=== PATIENT | female | born 1965 | race Caucasian/White ===

== ENCOUNTER 2019-12-31 09:00 | Outpatient (CLI) | payer OTHER, SELFPAY ==
[2019-12-31 09:36] LABS: Hemoglobin A1C 5.2 % (<5.7)
[2019-12-31 09:45] LABS: Alanine Aminotransferase 29 U/L (4-35); Albumin Level 4.2 g/dL (3.5-5.1); Alkaline Phosphatase 115 U/L (38-126); Aspartate Amino Transferase 44 U/L (14-36); Bilirubin,Total 0.4 mg/dL (0.2-1.3); Blood Urea Nitrogen 14 mg/dL (7-17); Calcium 9.1 mg/dL (8.4-10.2); Carbon Dioxide 26 mmol/L (22-30); Chloride 109 mmol/L (98-107); Cholesterol 182 mg/dL (0-200); Estimated Glomerular Filt Rate > 60; Glucose 101 mg/dL (65-105); HDL Direct 55 mg/dL; Potassium 4.3 mmol/L (3.4-5.0); Sodium 141 mmol/L (137-145); Triglycerides 84 mg/dL (<150)
[2019-12-31 09:56] LABS: LDL Cholesterol Direct 99 mg/dL
== END 2019-12-31 09:01 | disposition home or self-care (01) ==
PROVIDERS: PCP Family Medicine; Visit Provider Family Medicine
DX: E78.5 Hyperlipidemia, unspecified (principal); E88.81 Metabolic syndrome and other insulin resistance; Z79.899 Other long term (current) drug therapy
CPT/HCPCS: 36415; 80053; 80061; 83036

== ENCOUNTER 2020-01-08 00:21 | Outpatient (CLI) | payer OTHER, SELFPAY ==
[2020-01-08 17:33] LABS: SARS-CoV-2 RNA PCR Negative
== END 2020-01-08 00:22 | disposition home or self-care (01) ==
LOC: ANHCOVIDDT 00:21
PROVIDERS: Anesthesiology; PCP Family Medicine; Visit Provider Orthopaedic Surgery
DX: Z01.812 Encounter for preprocedural laboratory examination (principal); Z20.828 Contact with and (suspected) exposure to other viral communicable diseases
CPT/HCPCS: 87635; C9803; U0003

== ENCOUNTER 2020-01-08 10:15 | Outpatient (CLI) | payer OTHER, SELFPAY ==
--- NOTE | 2020-01-08 10:17 | ECG_ITS ---
Measurements Intervals [place] Rate: 68 P: 10 NC: 129 QRS: -5 QRSD: 93 T: 52 QT: 376 QTc: 400 Interpretive Statements SINUS RHYTHM LOW QRS VOLTAGE IN PRECORDIAL LEADS BORDERLINE R WAVE PROGRESSION, ANTERIOR LEADS BORDERLINE ST ABNORMALITY- HIGH LATERAL LEADS BASELINE ARTIFACT- II, III, AVF BORDERLINE ECG Electronically Signed On 01-08-2020 10:32:24 CDT by Teofilo Painter D.O.
== END 2020-01-08 10:16 | disposition home or self-care (01) ==
PROVIDERS: PCP Family Medicine; Visit Provider Orthopaedic Surgery
DX: I10 Essential (primary) hypertension (principal); R94.31 Abnormal electrocardiogram [ECG] [EKG]
CPT/HCPCS: 93005

== ENCOUNTER 2020-01-10 01:10 | Day surgery (SDC) | payer OTHER, SELFPAY ==
[2019-12-31 15:32] VITALS: BMI 30.7
[2020-01-10] VITALS (10 sets, daily range): BP systolic 104–130; BP diastolic 61–82; PULSE 52–65; RESP 14–18; TEMP 35.6–35.9; O2SAT 93–100
[2020-01-10] MEDS: LACTATED RINGERS 1,000 ML 30 ML IV CONT ×2 (07:05→10:01)
[2020-01-10 07:13] LABS: Glucose Point of Care 98 (65-105)
--- NOTE | 2020-01-10 07:25 | WPDHPUPDATE1 ---
History and Physical Update Update Date/Time: 01/10/20 07:25 History and Physical has been reviewed, including an updated exam of the patient. There are NO changes in the patient's condition. Risks, benefits, and alternatives have been discussed and questions answered. Patient agrees to proceed with procedure.
--- NOTE | 2020-01-10 08:16 | WPDANESEPPF ---
Anes - Initial Pre Proc Eval Procedure: Operation Date: 01/10/20 08:45 Proposed Procedures p Excision Left Prepatellar Mass - Skip Hilario MD Date/Time: 01/10/20 08:16 Surgeon: Skip Hilraio MD Pre Op Diagnosis: Left Knee Prepatellar mass Patient Data Age: 54 Gender: F Height: 5 ft 11 in Weight: 128.5 kg Last Vital Signs Temp 96.0 F L 01/10/20 07:26 Pulse 65 01/10/20 07:26 Resp 18 01/10/20 07:26 BP 114/69 01/10/20 07:26 Pulse Ox 98 01/10/20 07:26 Allergies Allergy/AdvReac Type Severity Reaction Status Date / Time azithromycin Allergy Unknown Hives / Unverified 01/10/20 07:21 Red Face morphine Allergy Unknown Unknown Verified 01/10/20 07:21 ibuprofen AdvReac STOMACH Verified 01/10/20 08:06 UPSET Home Medications Medication Instructions Recorded Confirmed Type fluoxetine 20 mg capsule 60 mg PO DAILY #270 cap 06/14/19 01/10/20 Rx bupropion HCl 300 mg 24 hr tablet, 300 mg PO QAM 07/08/19 01/10/20 History extended release fluoxetine 20 mg capsule 60 mg PO DAILY cap 07/08/19 01/10/20 History oxybutynin chloride 15 mg 15 mg PO DAILY 07/08/19 01/10/20 History tablet,extended release 24 hr amlodipine 5 mg-olmesartan 40 mg 1 tablet PO DAILY #90 tablet 09/25/19 01/10/20 Rx tablet oxycodone-acetaminophen 5 mg-325 1 tablet PO Q6H PRN #30 tablet 12/12/19 01/10/20 Rx mg tablet metformin 500 mg tablet 500 mg PO DAILY #90 tablet 12/30/19 01/10/20 Rx oxaprozin 1,200 mg PO DAILY 12/31/19 01/10/20 History Laboratory Tests 01/10/20 07:06 POC Capillary Glucose 98 mg/dl mg/dl (65-105) Patient hx anesthesia problems: none Family hx anesthesia problems: none PMFSH Past Medical History Medical History (Updated 01/09/20 @ 16:51 by Skip Hilario MD) Arthritis Depression Hypertension Prepatellar bursitis Surgical History Surgical History (Updated 11/13/19 @ 13:29 by Ruthie Downey) History of laminectomy (~1990) History of laminectomy (~1996) History of right hip replacement (~2006) Family History Family History (Updated 11/13/19 @ 13:33 by Ruthie Downey) Father Heart disease Hypertension Aneurysm Sibling Lung cancer Mother Arthritis Social History Social History Smoking status: Never smoker Alcohol intake: current Gender identity (if verbalized by the patient): Female Anes - Eval Final PreProcedure Day of Procedure 01/10/20 08:16 Patient weight: morbidly obese Heart: regular rate and rhythm Lungs: clear to auscultation Airway: Mallampati scale class II Neurological: alert and oriented Last oral intake: >/= 8 hours ASA classification: III Emergent: no Anesthetic plan: proceed Anesthesia type and monitoring: general LMA and standard monitoring Informed Consent: The patient's anesthetic plan and its attendant risks and benefits were discussed with the patient/family/POA. Questions were solicited and answers provided to the satisfaction of the patient/family/POA.
[2020-01-10] MEDS: ceFAZolin 3 GM/D5W 100 ML 100 ML IVPB (08:25)
[2020-01-10] MEDS: SCOPOLAMINE 1.5 MG PATCH TRANSDERM (08:45)
[2020-01-10] MEDS: BUPIVACAINE/EPINEPHRINE 0.5% 10 ML VIAL INFILTRATE (08:56)
[2020-01-10] MEDS: ONDANSETRON INJ 4 MG/2 ML VIAL IV PUSH (10:14)
--- NOTE | 2020-01-10 12:13 | SUR.PHASEII ---
1213 spoke with niece, shahzad, she is on her way to parts picker pt
--- NOTE | 2020-01-10 12:20 | SUR.PHASEII ---
[address] lyons about pt not able to keep lt eye open, looks irritarted(pink), and hurts. removed scopalamine patch from behind lt ear. dr lyons assessed pt, ordered diclofenac drops.
[2020-01-10] MEDS: DICLOFENAC SODIUM 0.1% OPHTH SOLN 2.5 ML BOTTLE 1 DROP EACH EYE (12:31)
--- NOTE | 2020-01-10 16:36 | PM.PROC ---
Procedure Note - Detailed Date of procedure: 01/10/20 Pre-op diagnosis: Left Knee Prepatellar mass Post-op diagnosis: other (Left knee prepatellar bursa benign mass.) Procedure performed: Excision of prepatellar benign cystic mass measuring 6 cm x 3.5 cm. Anesthesia: GLMA Surgeon: Skip Hilario MD Estimated blood loss (mL): 5 Drains: No Packing: No Pathology: yes Complications: None Condition: stable Disposition: PACU Findings: A general anesthetic was administered. The leg was prepped and draped in the usual sterile fashion. The very large subcutaneous prepatellar cystic fluid mass was identified. A transverse incision was created with a small ellipse of excess skin tissue over the central aspect of the mass. Careful dissection around the mass was performed. It was removed in its entirety. The fluid expressed was not infectious. It appeared serous. The surrounding tissues appeared healthy. The mass measured 6 cm x 3.5 cm. The subcutaneous tissues were closed with interrupted 3 O Monocryl suture followed by running 4 Monocryl suture and Steri-Strips. Sterile bulky dressing was applied with a compressive wrap. The patient was extubated and brought to the recovery room in stable condition. There were no complications. This mass was sent to pathology.
== END 2020-01-10 13:10 | disposition home or self-care (01) ==
PROVIDERS: PCP Family Medicine; Visit Provider Orthopaedic Surgery
PROC: (CPT 27345; principal; 2020-01-10 08:45)
DX: M71.22 Synovial cyst of popliteal space [Baker], left knee (principal); I10 Essential (primary) hypertension; F32.9 Major depressive disorder, single episode, unspecified; Z79.84 Long term (current) use of oral hypoglycemic drugs; Z79.891 Long term (current) use of opiate analgesic; E66.01 Morbid (severe) obesity due to excess calories; Z68.39 Body mass index [BMI] 39.0-39.9, adult
CPT/HCPCS: 27345; 88304; A9270; J0131; J0690; J1100; J1200; J2250; J2405; J2704; J3010; J7120

== ENCOUNTER → 2020-09-08 03:53 | Outpatient (CLI) | payer OTHER, SELFPAY ==
[2020-09-09 18:18] LABS: SARS-CoV-2 RNA PCR Negative
== END ==
PROVIDERS: Family Provider Family Medicine; PCP Family Medicine; Visit Provider Podiatrist Foot & Ankle Surgery
DX: Z01.812 Encounter for preprocedural laboratory examination (principal); Z20.822 Contact with and (suspected) exposure to COVID-19
CPT/HCPCS: C9803; U0003; U0005

== ENCOUNTER 2020-09-11 01:17 | Day surgery (SDC) | payer OTHER, SELFPAY ==
[2020-09-07 17:17] VITALS: BMI 38.3
--- NOTE | 2020-09-10 15:30 | WPDANESPNB ---
Anes - Peripheral Nerve Block Date/Time: 09/10/20 15:30 I have discussed with the patient/family/POA the placement of a peripheral nerve block for post-operative pain management, including associated risks, benefits, complications, and side effects. Alternative methods of post-operative analgesia were detailed. Questions were solicited and answers provided to the satisfaction of the patient/family/POA. Time-Out: A pre-procedural Time-Out was completed immediately before starting the procedure and confirmed: Patient Identification, Site, Procedure, Patient Position and the Availability of Requisite Equipment. Clinical Indications: Acute post-operative pain management requested by the operative surgeon. Nerve Block Insertion Note Needle: 22 gauge, stimulating, insulated echogenic needle.
--- NOTE | 2020-09-10 15:30 | WPDANESEPPF ---
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 Patient Data Age: 55 Gender: F Height: 1.8 m Weight: 124.74 kg Allergies Allergy/AdvReac Type Severity Reaction Status Date / Time azithromycin Allergy Severe Hives / Unverified 09/11/20 06:23 Red Face morphine AdvReac Severe Nausea and Verified 09/11/20 06:23 Vomiting Home Medications Medication Instructions Recorded Confirmed Type fluoxetine 20 mg capsule 60 mg PO DAILY cap 07/08/19 09/11/20 History metformin 500 mg tablet 500 mg PO DAILY #90 tablet 12/30/19 09/11/20 Rx oxaprozin 600 mg tablet See Rx Instructions .ROUTE 06/30/20 09/11/20 Rx .COMPLEX #180 tablet amlodipine 5 mg-olmesartan 40 mg 1 tablet PO DAILY #90 tablet 07/29/20 09/11/20 Rx tablet bupropion HCl 300 mg 24 hr tablet, 300 mg PO QAM #90 tablet 07/29/20 09/11/20 Rx extended release oxybutynin chloride 15 mg 15 mg PO DAILY #90 tablet 07/29/20 09/11/20 Rx tablet,extended release 24 hr oxycodone-acetaminophen 5 mg-325 1 tablet PO Q6H PRN #30 tablet 07/29/20 09/11/20 Rx mg tablet Patient hx anesthesia problems: none Family hx anesthesia problems: none PMFSH Past Medical History Medical History (Updated 09/10/20 @ 15:31 by Scott Pena MD) Anxiety Arthritis Charcot ankle Depression Diabetes Foot drop, left Gastro-esophageal reflux disease without esophagitis Hypertension Morbid obesity Prepatellar bursitis Surgical History Surgical History History of laminectomy (~1990) History of laminectomy (~1996) History of right hip replacement (~2006) Family History Family History Father Heart disease Hypertension Aneurysm Sibling Lung cancer Mother Arthritis Social History Social History Smoking status: Never smoker Alcohol intake: current Substance use: never Gender identity (if verbalized by the patient): Female Anes - Eval Final PreProcedure Day of Procedure 09/10/20 15:30 Patient weight: obese Heart: regular rate and rhythm Lungs: clear to auscultation and normal air movement Airway: Mallampati scale class II Neurological: alert and oriented Last oral intake: >/= 8 hours ASA classification: III Emergent: no Anesthetic plan: proceed Anesthesia type and monitoring: general GIVS and LMA Informed Consent: The patient's anesthetic plan and its attendant risks and benefits were discussed with the patient/family/POA. Questions were solicited and answers provided to the satisfaction of the patient/family/POA.
[2020-09-11] VITALS (12 sets, daily range): BP systolic 127–151; BP diastolic 73–88; PULSE 70–86; RESP 12–16; TEMP 36.1–36.7; O2SAT 94–100
--- NOTE | ~2020-09-11 | XR_ITS ---
EXAMINATION: XR surgery orthopedic DATE: 09/11/2020 11:29 INDICATION: Left foot arthrodesis TECHNIQUE: 3 fluoroscopic images of the left midfoot were obtained during procedure performed by Dr. Moseley. Radiologist was not present for the imaging or procedure. The amount of fluoroscopy time us ed during this procedure was 2.0 minutes. COMPARISON: 12/30/2015 FINDINGS: Hindfoot arthrodesis with cannulated compression screw spanning the subtalar joint, cannula nisreen lag screw and a couple dorsal sided tessa spanning the talonavicular joint and a couple additio nal tessa spanning the dorsolateral aspect of the calcaneocuboid joint. There has also been a first tarsal metatarsal arthrodesis with dorsal/medial sided plate and screw fixation with one of the fixa tion screws at the base of the first metatarsal possibly extending into the base of the second metata rsal. Alignment remains essentially anatomic. No fractures identified. IMPRESSION: 1. Instrumented arthrodesis involving the subtalar, talonavicular and calcaneocuboid joints and addit ional noncemented first tarsal metatarsal arthrodesis. See procedure note for further detail. Reviewed, dictated and finalized at location A. HANT SEAMAN IMPRESSION: 1. Instrumented arthrodesis involving the subtalar, talonavicular and calcaneoc uboid joints and additional noncemented first tarsal metatarsal arthrodesis. Se abdulkadir procedure note for further detail.
--- NOTE | ~2020-09-11 | XR_ITS ---
EXAMINATION: XR ankle LT min 3V DATE: 09/11/2020 12:12 INDICATION: Left hindfoot triple arthrodesis. TECHNIQUE: Anteroposterior, mortise, and lateral views of the left ankle were obtained. COMPARISON: None. FINDINGS: Hindfoot arthrodesis with cannulated compression screw spanning the subtalar joint, cannulated lag sc rew and a couple dorsal sided tessa spanning the talonavicular joint and a couple additional staple s spanning the dorsolateral aspect of the calcaneocuboid joint. There has also been a first tarsal me tatarsal arthrodesis with dorsal/medial sided plate and screw fixation. Alignment remains essentially anatomic. No fractures identified. Plantar calcaneal spur. IMPRESSION: 1. Instrumented arthrodesis involving the subtalar, talonavicular and calcaneocuboid joints and addit ional instrumented first tarsal metatarsal arthrodesis, all in near-anatomic alignment. Reviewed, dictated and finalized at location A. L DRESSING CUTTER IMPRESSION: 1. Instrumented arthrodesis involving the subtalar, talonavicular and calcaneoc uboid joints and additional instrumented first tarsal metatarsal arthrodesis, a ll in near-anatomic alignment.
[2020-09-11] MEDS: LACTATED RINGERS 1,000 ML 30 ML IV CONT ×2 (06:54→12:00)
[2020-09-11 06:55] LABS: Glucose Point of Care 107 (65-105)
[2020-09-11 07:05] LABS: Anion Gap 5 mmol/L (8-16); Blood Urea Nitrogen 19 mg/dL (7-17); Carbon Dioxide 28 mmol/L (22-30); Chloride 106 mmol/L (98-107); Estimated CRCL calculation 95 ml/min; Estimated Glomerular Filt Rate > 60; Glucose 104 mg/dL (65-105); Sodium 139 mmol/L (137-145)
[2020-09-11] MEDS: SCOPOLAMINE 1.5 MG PATCH TRANSDERM (07:06)
--- NOTE | 2020-09-11 07:16 | WPDHPUPDATE1 ---
History and Physical Update Update Date/Time: 09/11/20 07:16 History and Physical has been reviewed, including an updated exam of the patient. There are NO changes in the patient's condition. Risks, benefits, and alternatives have been discussed and questions answered. Patient agrees to proceed with procedure.
[2020-09-11] MEDS: ceFAZolin 3 GM/D5W 100 ML 100 ML IVPB (07:29)
[2020-09-11] MEDS: LIDOCAINE HCL 2% LOCAL INJ 20 ML VIAL 10 ML INFILTRATE (08:02)
[2020-09-11] MEDS: BUPIVACAINE HCL 0.5% PF 30 ML VIAL INFILTRATE (08:03)
[2020-09-11] MEDS: LIDOCAINE HCL 2% PF INJ 5 ML VIAL 30 ML INFILTRATE (09:33)
[2020-09-11] MEDS: ceFAZolin 2 GM/D5W 50 ML 2 GM/50 ML BAG IVPB (11:17)
--- NOTE | 2020-09-11 12:11 | PM.OP ---
Procedure Note - Brief Procedure Note - Brief Date of procedure: 09/11/20 Pre-op diagnosis: Arhthitic Talotarsal Instability Left Foot 1. Arthritis 1st metatarsal cuneiform joint left foot Post-op diagnosis: same Procedure performed: 1. Triple arthrodesis left foot 2. Arthrodesis of the first metatarsal cuneiform joint left foot Anesthesia: GLMA and local Estimated blood loss (mL): 20 Drains: No Packing: No Pathology: none sent Complications: No immediate complications Condition: stable Disposition: same day
[2020-09-11] MEDS: fentaNYL CITRATE INJ (*CRX) 100 MCG/2 ML VIAL 25 MCG IV PUSH ×2 (12:36→12:39)
--- NOTE | 2020-09-11 13:16 | SUR.PHASEI ---
per patient request, scopalamine patch removed
--- NOTE | 2020-09-11 13:40 | SUR.PHASEII ---
PATIENT C/O'ING SEVERE ITCHING OF BOTH EYES AND SENSITIVE TO LIGHT. DENIES PAIN. ASKED FOR ICE PACK TO EYES. DECLINES TAKING BENADRYL. LIGHTS OFF.
[2020-09-11 13:55] LABS: Glucose Point of Care 121 (65-105)
[2020-09-11] MEDS: oxyCODONE HCL (*CRX) 5 MG TAB IR PO (13:55)
[2020-09-11] MEDS: PROPARACAINE HCL 0.5% 15 ML OPHTH SOLN 1 DROP EACH EYE ×2 (14:32→15:06)
--- NOTE | 2020-09-11 14:38 | PM.PROC ---
Procedure Note - Detailed Date of procedure: 09/11/20 Pre-op diagnosis: Arhthitic Talotarsal Instability Left Foot 2. Arthritis of the first metatarsal cuneiform joint left foot with forefoot varus Procedure performed: 1. Triple arthrodesis left foot 2. Arthrodesis of the first metatarsal cuneiform joint left foot Implants: 1. StarCard headless 7.0mm Cannulated Screw 2. StarCard 4.0mm Cannulated Screw 3. 2 [place] EZCLIP 18mm by 14mm Compression Miguel Ángel 4. 2 [place] EZCLIP 25mm by 22mm Compression Miguel Ángel 5. One StarCard Ortholoc 5 Hole 2mm step off Plate with 4 (3.5mm) locking screw and one (3.5mm) non locking screw 6. StarCard 5cc of Allomatrix 7. 2-0 Vicryl, 3-0 Vicryl, 4-0 Vicryl, and 4-0 Monocryl. Anesthesia: GLMA and local Surgeon: Tadeo Moseley JR, MD Estimated blood loss (mL): 20 Drains: No Packing: No Pathology: none sent Complications: No immediate complications Condition: stable Disposition: same day Findings: PROCEDURE IN DETAIL: Under mild sedation, the patient was brought into the operating room and placed on the operating table in the supine position. A pneumatic thigh tourniquet was placed about the patient's left thigh. Following general anesthesia and a previous popliteal fossa block, the left foot was then scrubbed, prepped, and draped in the usual aseptic manner. An Esmarch bandage was then used to exsanguinate the patient's left foot and ankle and the pneumatic thigh tourniquet was then inflated to 300 mmHg. Surgery began in the following manner: Attention was directed to the dorsal medial aspect of the talonavicular joint of the left foot where a 6 cm longitudinal incision was made proximal to the medial gutter of the ankle but just medial to the tibialis anterior tendon. The dissection was continued deep down through the subcutaneous tissues using sharp and blunt dissection. All bleeders were ligated and cauterized as necessary. At this point, the talonavicular joint capsule was exposed and severed with a 15 blade. Next, 2 Steinmann pins were placed along the medial aspect of the talus and navicular bones and a joint distractor was used to open the talonavicular joint exposing the completely medially dislocated talar head, no significant attenuation to the spring ligament only laxity noted. The cartilage to the base of the navicular and head of the talus was denuded utilizing the [facility] Joint Prep Instrument Kit, next a small osteotome was used to fenestrate the subchondral bone and then a 2.5 mm drill was used to fenestrate in order to promote fusion across the talonavicular joint. At this point, the joint distractor was removed, and attention was directed to the lateral aspect of the hindfoot. An incision was made starting just distal to the lateral malleolus and extending towards the base of the 4th metatarsal. The incision was continued deep down through the subcutaneous tissues using sharp and blunt dissection. All bleeders were ligated and cauterized as necessary. At this point, the sinus tarsi was explored. A rongeur was used to resect all sinus tarsi contents and fat significant synovial tissue was debrided. The talocalcaneal ligament was cut. The extensor digitorum brevis muscle was detached form its origin to expose the calcaneal cuboid joint. The dissection was continued deep down through the subcutaneous tissues using sharp and blunt dissection both anterior and posterior to the sinus tarsi area. Furthermore, the dissection was continued posteriorly where the peroneal tendon sheath was incised exposing the peroneal tendons posteriorly. The calcaneofibular ligament was left intact. Next, a joint distractor was positioned along the lateral aspect of the talus and lateral aspect of the calcaneus. Two large Steinmann pins were placed from lateral to medial across the lateral aspect of the talar body and lateral aspect of the calcaneal body. The joint distract
[2020-09-11] MEDS: DICLOFENAC SODIUM 0.1% OPHTH SOLN 2.5 ML BOTTLE 1 DROP EACH EYE (15:20)
--- NOTE | 2020-09-11 15:50 | SUR.PHASEII ---
DR. MIKE CALLED X2 RE: PATIENT'S EYES. EYE DROPS ADMINISTERED WITH SOME RELIEF. DR. MIKE OKAY'D FOR PATIENT TO TAKE ALL EYE DROPS GIVEN HERE. PT NO LONGER CRYING. EYES STILL REDDENED BUT ABLE TO KEEP THEM OPEN. NETWORK [employer]GRAM MA[employer]GER ARE[employer] AWARE OF SITUATION.
== END 2020-09-11 15:30 | disposition home or self-care (01) ==
PROVIDERS: Anesthesiology; Family Provider Family Medicine; PCP Family Medicine; Visit Provider Podiatrist Foot & Ankle Surgery
PROC: (CPT 28715; principal; 2020-09-11 07:30)
PROC: (CPT 28750; 2020-09-11 07:30)
DX: M25.375 Other instability, left foot (principal); M19.072 Primary osteoarthritis, left ankle and foot; I10 Essential (primary) hypertension; E11.610 Type 2 diabetes mellitus with diabetic neuropathic arthropathy; Z79.84 Long term (current) use of oral hypoglycemic drugs; M21.372 Foot drop, left foot; K21.9 Gastro-esophageal reflux disease without esophagitis; E66.01 Morbid (severe) obesity due to excess calories; Z68.41 Body mass index [BMI] 40.0-44.9, adult; F41.8 Other specified anxiety disorders
CPT/HCPCS: 28715; 28737; 36415; 73610; 80048; 82948; A9270; C1713; C9290; J0690; J1100; J2250; J2370; J2405; J2704; J3010; J7120

== ENCOUNTER 2020-09-29 12:45 | Emergency (ER) | payer OTHER, SELFPAY ==
--- NOTE | ~2020-09-29 | XR_ITS ---
EXAMINATION: XR wrist RT 2V, XR wrist RT 2V DATE: 09/29/2020 at 15:08 and at 15:09 INDICATION: Right wrist fracture post reduction and splinting and repeat reduction TECHNIQUE: 1. Posteroanterior and lateral views of the right wrist were obtained. 2. Posteroanterior and lateral views of the right wrist were obtained. COMPARISON: 09/29/2020 at 1:17 PM FINDINGS: On the initial images there has been no significant interval change in one half shaft width dorsal di splacement and 25 degrees dorsal angulation of an oblique fracture at the distal metaphysis of the ri ght radius. Fiberglas splinting about the wrist and visualized forearm. On the subsequent images following second attempt at reduction there has been decrease in now approxi mately one third shaft widths posterior displacement and reduction of the prior partial angulation to near neutral angulation. Again seen is fiberglass splinting material about the wrist and forearm whi ch appears to have been revised. No other fractures identified. Joint spaces are normal. IMPRESSION: 1. Decreased now one third shaft width posterior displacement and reduction to neutral angulation pos t reduction and splinting of an extra articular fracture of the distal right radial metaphysis. Reviewed, dictated and finalized at location B. RAM PROJECT MANAGER IMPRESSION: 1. Decreased now one third shaft width posterior displacement and reduction to neutral angulation post reduction and splinting of an extra articular fracture of the distal right radial metaphysis.
--- NOTE | ~2020-09-29 | XR_ITS ---
EXAMINATION: XR wrist RT min 3V DATE: 09/29/2020 13:17 INDICATION: Right wrist deformity. TECHNIQUE: 3 views of right wrist were obtained. COMPARISON: Right wrist radiographs 04/30/2005 FINDINGS: There is a comminuted fracture of distal radial metaphysis without involvement of the dista l articular surface. The main distal fracture fragment demonstrates 38 degrees dorsal angulation, 8 d egrees dorsal displacement, and impaction. Joint spaces are normal. IMPRESSION: 1. Comminuted fracture of distal radial metaphysis. Reviewed, dictated and finalized at location A. STMENT FUND MANAGER
--- NOTE | ~2020-09-29 | XR_ITS ---
EXAMINATION: XR elbow RT 2V EXAM DATE: 09/29/2020 13:20 INDICATION: Initial encounter following injury, with pain of the right elbow. TECHNIQUE: Frontal, crosstable lateral projections of the right elbow. There projection is somewhat obliqued. FINDINGS: There are no acute right elbow fractures or dislocations identified. There is no subcutane ous gas. The soft tissue is unremarkable. There are no radiopaque foreign bodies. IMPRESSION: 1. XR elbow RT 2V exam without acute osseous findings. Reviewed, dictated and finalized at location A. LLER
[2020-09-29 12:49] VITALS: BP 160/92; PULSE 83; RESP 18; TEMP 37.2; O2SAT 96
--- NOTE | 2020-09-29 13:34 | ED.UPPEXIN ---
HPI - Extremity Injury (Upper) General Chief Complaint: Extremity Injury, Upper Stated Complaint: fall-wrist deformity Time Seen by Provider: 09/29/20 12:47 Source: patient Mode of arrival: EMS Limitations: no limitations History of Present Illness HPI narrative: This is a 55 year old female right hand dominant who presents for evaluation of a right wrist injury. She recently had surgery on her left ankle so she has a cast on her leg. She has been getting around using a scooter. Today she was trying to turn around in the scooter when the scooter fell over. She fell onto her right wrist trying to break her fall. She denies hitting her head or LOC. She reports right wrist pain and mild right elbow pain. EMS noticed she has a deformity to her right wrist. She has pain with movement. She reports mild tingling to her 2nd/3rd fingers. She is non weightbearing on her left foot/ankle. She lives with her son and niece who have been helping her. complaint: injury to: right and wrist Related Data Home Medications Medication Instructions Recorded Confirmed fluoxetine 20 mg capsule 60 mg PO DAILY cap 07/08/19 09/11/20 Allergies Allergy/AdvReac Type Severity Reaction Status Date / Time azithromycin Allergy Severe Hives / Verified 09/29/20 12:55 Red Face morphine AdvReac Severe Nausea and Verified 09/29/20 12:55 Vomiting scopolamine AdvReac Severe Blurry Verified 09/29/20 12:55 Vision Review of Systems Review of Systems: All systems reviewed & are unremarkable except as noted in HPI and below Constitutional: Constitutional: Denies chills and Denies fever(s) Cardiovascular: Cardiovascular: Denies chest pain Respiratory: Respiratory: Denies cough and Denies dyspnea Gastrointestinal: Gastrointestinal: Denies nausea Musculoskeletal: Musculoskeletal: Reports arthralgias and Reports joint swelling Neurologic: Denies dizziness, Denies headache(s) and Denies weakness [facility] Past Medical History Medical History Anxiety Arthritis Charcot ankle Depression Diabetes Foot drop, left Gastro-esophageal reflux disease without esophagitis Hypertension Morbid obesity Prepatellar bursitis Surgical History Surgical History History of laminectomy (~1990) History of laminectomy (~1996) History of right hip replacement (~2006) Family History Family History Father Heart disease Hypertension Aneurysm Sibling Lung cancer Mother Arthritis Social History Social History Smoking status: Never smoker Alcohol intake: current Substance use: never Gender identity (if verbalized by the patient): Female Exam Const: General: no acute distress and alert Orientation/consciousness: patient oriented x3 HENMT: Head: normocephalic and atraumatic Face and sinus: face symmetric Mouth: Yes Normal oral and palatal mucosa present, Yes lip normal, Yes tongue normal, Yes oropharynx normal and Yes moist mucous membranes Eyes: Pupils: Equal, round and reactive pupils present EOM: EOMs intact bilaterally Resp: Effort & Inspection: normal respiratory effort and no retractions Auscultation: clear to auscultation bilaterally Cardio: Rate: regular rate Rhythm: regular rhythm Heart sounds: no murmurs Neuro: General: patient oriented x3 and moves all extremities Extrem: Other: right wrist deformity with swelling, able to move all fingers distal, strong radial pulse, ; short leg cast to left foot Psych: Mental Status: mental status grossly normal Affect: normal affect Course Reevaluation(s) Reevaluation #1: Patient was found to have a distal radius fracture with angulation. I performed a hematoma block with 6 ml lidocaine after cleaning wrist with betadine, sterile gloves. and red
[2020-09-29 14:18] VITALS: BP 128/107; PULSE 72; RESP 16; O2SAT 98
[2020-09-29] MEDS: fentaNYL CITRATE INJ (*CRX) 100 MCG/2 ML VIAL (14:55)
[2020-09-29 15:00] VITALS: BP 166/91; PULSE 67; RESP 18; O2SAT 97
[2020-09-29 15:09] VITALS: BP 134/86; PULSE 77; RESP 16; O2SAT 98
[2020-09-29] MEDS: oxyCODONE/ACETAMINOPHEN (*CRX) 5-325 MG TABLET 1 TABLET PO (15:36)
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
[2020-09-29 16:30] VITALS: BP 148/80; PULSE 82; RESP 16; O2SAT 99
--- NOTE | 2020-09-29 17:17 | PCCCNOTE ---
Addendum entered by Lily Curtis RN 10/02/20 12:50: Discussed concerns of patient going home with Dr Palmer immediately after I had met with patient. Patient was adamant that she did not want to be hospitalized overnight and refused to be transferred to a [facility] facility. Patient is alert, oriented x 4, and is capable of making decisions for her healthcare even if I do not agree with those decisions. Returned to patient's room and again asked patient if she had enough resources at home. Patient stated she did not live alone and that they could assist her to the extent she did not need to have additional resources. Patient stated that her home was not wheelchair accessible and asked if I had other suggestions how she might move short distances within her home as she could not use her right arm or bear weight on her left leg. As she was refusing admission, refusing transfer, and unable to utilize a wheelchair or crutches, I suggested using an office chair if she needed to move short distances. Patient stated that would be a possible option and that the arm rests would be easier to use than her recliner arm rests. Original Note: Attempted to locate a Platform Walker or Platform Walker attachment for patient's walker locally without success. [facility] in [place] was out of stock as was [facility]. Patient located an attachment on [facility] and it is to be delivered to her home on October 01. Patient feels that she has enough assistance and resources to sustain her until the attachment is delivered
== END 2020-09-29 17:28 | disposition home or self-care (01) ==
PROVIDERS: Emergency Provider General Practice; PCP Family Medicine
DX: S59.291A Other physeal fracture of lower end of radius, right arm, initial encounter for closed fracture (principal); M19.90 Unspecified osteoarthritis, unspecified site; E11.9 Type 2 diabetes mellitus without complications; K21.9 Gastro-esophageal reflux disease without esophagitis; I10 Essential (primary) hypertension; E66.01 Morbid (severe) obesity due to excess calories; Z68.38 Body mass index [BMI] 38.0-38.9, adult; Z79.84 Long term (current) use of oral hypoglycemic drugs; V00.831A Fall from motorized mobility scooter, initial encounter
CPT/HCPCS: 25565; 25605; 73070; 73100; 73110; 96374; 99285; A4565; A9270; J3010

== ENCOUNTER 2020-10-06 14:23 | Observation (INO) | payer OTHER, SELFPAY ==
--- NOTE | 2020-10-01 14:04 | PC.NURSE ---
PT STATES NO CHANGE IN HEALTH HX SINCE 09/07/20. EXCEPT RT WRIST FX
[2020-10-01 14:05] VITALS: BMI 38.3
[2020-10-05] VITALS (11 sets, daily range): BP systolic 101–140; BP diastolic 62–91; PULSE 61–91; RESP 10–19; TEMP 36–36.8; O2SAT 96–99
--- NOTE | 2020-10-05 11:43 | WPDANESEPPF ---
Anes - Initial Pre Proc Eval Procedure: Operation Date: 10/05/20 13:00 Proposed Procedures p Open Reduction Internal Fixation Right Distal Radius Fracture - Skip Hilario MD Date/Time: 10/05/20 11:43 Surgeon: Skip Hilario MD Pre Op Diagnosis: Right Wrist Fracture Patient Data Age: 55 Gender: F Height: 1.8 m Weight: 124.75 kg Allergies Allergy/AdvReac Type Severity Reaction Status Date / Time azithromycin Allergy Severe Hives / Verified 10/05/20 11:18 Red Face morphine AdvReac Severe Nausea and Verified 10/05/20 11:18 Vomiting scopolamine AdvReac Severe Blurry Verified 10/05/20 11:18 Vision Home Medications Medication Instructions Recorded Confirmed Type fluoxetine 20 mg capsule 60 mg PO DAILY cap 07/08/19 10/05/20 History metformin 500 mg tablet 500 mg PO DAILY #90 tablet 12/30/19 10/05/20 Rx amlodipine 5 mg-olmesartan 40 mg 1 tablet PO DAILY #90 tablet 07/29/20 10/05/20 Rx tablet bupropion HCl 300 mg 24 hr tablet, 300 mg PO QAM #90 tablet 07/29/20 10/05/20 Rx extended release oxybutynin chloride 15 mg 15 mg PO DAILY #90 tablet 07/29/20 10/05/20 Rx tablet,extended release 24 hr oxaprozin 600 mg tablet See Rx Instructions .ROUTE 09/28/20 10/05/20 Rx .COMPLEX #180 tablet oxycodone-acetaminophen [Percocet] 1 tablet PO Q4H PRN #14 tablet 09/29/20 10/05/20 Rx calcium carbonate-vitamin D3 2 tablet PO DAILY 10/01/20 10/05/20 History [Calcium 600 with Vitamin D3] Patient hx anesthesia problems: none Family hx anesthesia problems: none PMFSH Past Medical History Medical History Anxiety Arthritis Charcot ankle Depression Diabetes Foot drop, left Gastro-esophageal reflux disease without esophagitis Hypertension Morbid obesity Prepatellar bursitis Surgical History Surgical History History of laminectomy (~1990) History of laminectomy (~1996) History of right hip replacement (~2006) Family History Family History Father Heart disease Hypertension Aneurysm Sibling Lung cancer Mother Arthritis Social History Social History Smoking status: Never smoker Alcohol intake: current Substance use: never Living arrangements: alone Gender identity (if verbalized by the patient): Female Spiritual care concerns: No Anes - Eval Final PreProcedure Day of Procedure 10/05/20 11:43 Patient weight: morbidly obese Heart: regular rate and rhythm Lungs: clear to auscultation and normal air movement Airway: Mallampati scale class II Neurological: alert and oriented Last oral intake: >/= 8 hours ASA classification: III Emergent: no Anesthetic plan: proceed Anesthesia type and monitoring: general LMA Informed Consent: The patient's anesthetic plan and its attendant risks and benefits were discussed with the patient/family/POA. Questions were solicited and answers provided to the satisfaction of the patient/family/POA.
[2020-10-05] MEDS: LACTATED RINGERS 1,000 ML 30 ML IV CONT ×2 (11:51→15:35)
[2020-10-05] MEDS: KETOROLAC 15 MG/ML VIAL (*BKC) IV PUSH (11:53)
--- NOTE | 2020-10-05 12:52 | WPDHPUPDATE1 ---
History and Physical Update Update Date/Time: 10/05/20 12:52 History and Physical has been reviewed, including an updated exam of the patient. There are NO changes in the patient's condition. Risks, benefits, and alternatives have been discussed and questions answered. Patient agrees to proceed with procedure.
--- NOTE | 2020-10-05 13:08 | WPDANESPNB ---
Anes - Peripheral Nerve Block Date/Time: 10/05/20 13:08 I have discussed with the patient/family/POA the placement of a peripheral nerve block for post-operative pain management, including associated risks, benefits, complications, and side effects. Alternative methods of post-operative analgesia were detailed. Questions were solicited and answers provided to the satisfaction of the patient/family/POA. Time-Out: A pre-procedural Time-Out was completed immediately before starting the procedure and confirmed: Patient Identification, Site, Procedure, Patient Position and the Availability of Requisite Equipment. Clinical Indications: Acute post-operative pain management requested by the operative surgeon. Nerve Block Insertion Note Anes-nerve block: supraclavicular right Patient position: supine Skin prep: chlorhexidine Needle: 22 gauge, stimulating, insulated echogenic needle. Needle length: 80 mm Technique: ultrasound (in plane) Injectate: bupivacaine 0.5% with epi 5 mcg/ml (20cc) Observations: tolerated well Complications: none Procedure start time:: 1300 Procedure end time:: 1305
[2020-10-05] MEDS: ceFAZolin 3 GM/D5W 100 ML 100 ML IVPB (13:12)
--- NOTE | 2020-10-05 15:36 | SUR.PHASEI ---
1520- fingers on operative arm warm to touch, arleen well. . no c/o pain.
--- NOTE | 2020-10-05 16:15 | P.OP_ITS ---
Procedure Note - Detailed Date of procedure: 10/05/20 Pre-op diagnosis: Right Wrist Fracture Post-op diagnosis: same Procedure performed: ORIF distal radius fracture. Description of procedure: Excellent bone quality, anatomic reduction. Locking plate stabilization. DRUJ mild instability. Wrist splinted in supination. Implants: [employer] volar plate, standard width. Anesthesia: other (block with sedation) Surgeon: Skip Hilario MD [employer] Consultant: Edith Reyes PA-C Estimated blood loss (mL): 20 Tourniquet time (min): 68 Complications: No immediate complications Condition: stable Disposition: PACU Findings: Physician primary teaching assistant, Edith Reyes PA-C, required for surgery; including patient positioning, draping, tissue retraction, maintaining instrument position, maintaining fracture reduction, assisting in fluoro views, wound closure, and splint placement. Operative details: Preoperative antibiotics were given. A general anesthetic was administered. The hand was prepped and draped in the usual sterile fashion with a well-padded tourniquet. The limb was exsanguinated and the tourniquet inflated to 250 millimeters of mercury. A longitudinal incision was created over the flexor carpi radialis tendon. Dissection was brought down through the sheath. The pronator quadratus was identified and released off of the radius. The fracture was carefully exposed and cleared of debris. Reduction was obtained with traction and manipulation. Provisional fixation was performed with a single K-wire. Reduction was anatomic at the volar cortex. Fluoroscopy was used to confirm anatomic reduction. The volar plate was placed on the radius and the position was confirmed. Provisional pins were placed. The dynamic cortical screw was applied. The plate was fine tuned and fluoroscopy was use to confirm that the joint would not be violated. Subsequent distal pins and screws were placed, followed by the proximal row. The wound was irrigated and closed. 2-0 Vicryl suture was used to reapproximate the pronator quadratus. The tourniquet was released and meticulous hemostasis was confirmed. The skin was closed with 3-0 Monocryl suture and a running 4-0 Monocryl suture. Steri- Strips were applied on the skin. A sterile bulky dressing with a volar splint was applied.
--- NOTE | 2020-10-05 16:45 | ADMGEN ---
This patient, Deya Saha, was admitted to 2 Medical Room 241-. Patient/family oriented to hospital policies and general routines including ID bracelet, bed and alarms, visiting hours, pain management, procedures, bathroom and other care routines, personal items, smoking policy, room service/diet, and visiting hours. Information on how to activate the Rapid Response Team has been discussed. Patient/Family are encouraged to report perceived risks to care and to ask questions if they do not understand what they are told or what they should do.
[2020-10-05] MEDS: FLUoxetine HCL 20 MG CAPSULE 60 MG PO (17:44)
[2020-10-05] MEDS: DOCUSATE SODIUM 100 MG CAPSULE PO (17:47)
[2020-10-05] MEDS: OLMESARTAN MEDOXOMIL 20 MG TABLET 40 MG PO (17:47)
[2020-10-05] MEDS: amLODIPine BESYLATE 5 MG TABLET PO (17:48)
[2020-10-05] MEDS: metFORMIN HCL 500 MG TABLET PO (17:48)
[2020-10-05 18:04] LABS: Glucose Point of Care 100 (65-105)
[2020-10-05] MEDS: ASPIRIN 325 MG ENTERIC TABLET PO (21:31)
[2020-10-05] MEDS: OXAPROZIN 600 MG TABLET BY MOUTH (21:31)
--- NOTE | ~2020-10-06 | XR_ITS ---
EXAMINATION: XR surgery orthopedic EXAM DATE: 10/05/2020 14:58 INDICATION: Open reduction internal fixation right wrist. TECHNIQUE: Fluoroscopy used during XR surgery orthopedic performed by Dr. Skip Hilario MD. T he DAP for this procedure was 0.03 mGym2. Correlation was made with right wrist exam 09/29/2020. FINDINGS: Images demonstrate a plate along the volar aspect of the radius bridging a reduced metaphy seal fracture. Correlate with procedure note. IMPRESSION: Fluoroscopy used during right radial metaphyseal ORIF. Reviewed, dictated and finalized at location B. R FEEDER
[2020-10-06] MEDS: oxyCODONE HCL (*CRX) 5 MG TAB IR PO ×3 (00:19→20:44)
[2020-10-06 02:03] VITALS: BP 125/74; PULSE 82; RESP 16; TEMP 35.9; O2SAT 97
[2020-10-06 06:11] VITALS: BP 132/81; PULSE 70; RESP 16; TEMP 36.2; O2SAT 99
[2020-10-06 08:50] VITALS: BP 119/66; PULSE 70; RESP 18; TEMP 36.1; O2SAT 99
[2020-10-06 10:11] VITALS: BP 107/53; PULSE 86; RESP 14; TEMP 35.9; O2SAT 97
[2020-10-06] MEDS: OLMESARTAN MEDOXOMIL 20 MG TABLET 40 MG PO (10:30)
[2020-10-06] MEDS: amLODIPine BESYLATE 5 MG TABLET PO (10:41)
[2020-10-06] MEDS: OXAPROZIN 600 MG TABLET BY MOUTH ×2 (10:42→20:40)
[2020-10-06] MEDS: ASPIRIN 325 MG ENTERIC TABLET PO ×2 (10:45→20:40)
[2020-10-06] MEDS: metFORMIN HCL 500 MG TABLET PO (10:46)
[2020-10-06] MEDS: DOCUSATE SODIUM 100 MG CAPSULE PO ×2 (10:47→16:26)
[2020-10-06] MEDS: FLUoxetine HCL 20 MG CAPSULE 60 MG PO (10:48)
[2020-10-06] MEDS: buPROPion HCL XL (24 HR) 150 MG TABCR 300 MG PO (10:49)
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
--- NOTE | 2020-10-06 13:51 | WPDANESPN ---
Anes - Prog Note Post-Op Date/Time: 10/06/20 13:51 Cardiovascular status: normal Respiratory status: normal Airway patency: baseline Mental status: baseline Post-Op hydration status: normal Vital Signs: Last Vital Signs Temp 35.9 C L 10/06/20 10:11 Pulse 86 10/06/20 10:11 Resp 14 10/06/20 10:11 BP 107/53 L 10/06/20 10:11 Pulse Ox 97 10/06/20 10:11 Pain Score (VAS): 08/09 I/O: Intake & Output 10/05/20 10/06/20 10/06/20 23:59 07:59 15:59 Intake Total 750 700 360 Output Total 750 3650 Balance 0 -2950 360 10/05/20 17:58 POC Capillary Glucose 100 Patient Feedback: Patient satisfied with anesthetic care.
[2020-10-06 14:15] VITALS: BP 115/54; PULSE 69; RESP 20; TEMP 37.1; O2SAT 97
--- NOTE | 2020-10-06 17:20 | WPDCN ---
Assessment and Plan Assessment and plan (1) Closed extra-articular fracture of distal end of right radius: Code(s): S52.551A - Other extraarticular fracture of lower end of right radius, initial encounter for closed fracture Status: Acute (2) Closed fracture of right distal radius: Qualifiers: Encounter type: initial encounter Code(s): S52.501A - Unspecified fracture of the lower end of right radius, initial encounter for closed fracture Status: Acute (3) Charcot ankle: Qualifiers: Laterality: left Qualified Code(s): M14.672 - Charcot's joint, left ankle and foot Code(s): M14.679 - Charcot's joint, unspecified ankle and foot Status: Acute (4) Gastro-esophageal reflux disease without esophagitis: Code(s): K21.9 - Gastro-esophageal reflux disease without esophagitis Status: Acute (5) Anxiety: Code(s): F41.9 - Anxiety disorder, unspecified Status: Acute (6) Diabetes: Code(s): E11.9 - Type 2 diabetes mellitus without complications Status: Acute (7) Bursitis of intermetatarsal bursa of left foot: Code(s): M77.52 - Other enthesopathy of left foot and ankle Status: Acute (8) Foot drop, left: Code(s): M21.372 - Foot drop, left foot Status: Acute (9) Calcaneal spur: Qualifiers: Laterality: right Qualified Code(s): M77.31 - Calcaneal spur, right foot Code(s): M77.30 - Calcaneal spur, unspecified foot Status: Acute (10) Morbid obesity: Code(s): E66.01 - Morbid (severe) obesity due to excess calories Status: Acute (11) Essential (primary) hypertension: Code(s): I10 - Essential (primary) hypertension Status: Acute (12) Major depressive disorder, single episode, unspecified: Qualifiers: Active/Remission status: currently active Major depression episode severity: moderate Qualified Code(s): F32.1 - Major depressive disorder, single episode, moderate Code(s): F32.9 - Major depressive disorder, single episode, unspecified Status: Acute (13) Metabolic syndrome: Code(s): E88.81 - Metabolic syndrome Status: Acute (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, not intractable: Code(s): G43.B0 - Ophthalmoplegic migraine, not intractable Status: Acute (15) Other and unspecified hyperlipidemia: Code(s): E78.5 - Hyperlipidemia, unspecified Status: Acute (16) Tension-type headache, unspecified, intractable: Code(s): G44.201 - Tension-type headache, unspecified, intractable Status: Acute (17) Urge incontinence: Code(s): N39.41 - Urge incontinence Status: Acute (18) Prepatellar bursitis: Qualifiers: Laterality: left Qualified Code(s): M70.42 - Prepatellar bursitis, left knee Code(s): M70.40 - Prepatellar bursitis, unspecified knee Status: Acute Additional Plan 55-year-old obese female with past medical history of hypertension, depression, metabolic syndrome, GERD, who recently underwent left ankle surgery due to left foot drop and Charcot ankle. Unfortunately patient has fallen and sustained a right radial fracture. She has undergone ORIF of the right wrist and she is nonweightbearing through the right upper extremity and left lower extremity. Patient is insistent that she not go to a [facility] facility. Patient becomes tearful during our discussion. Patient appears depressed during the exam. patient denies pain to the left lower extremity but does admit to pain to the right wrist area. Patient will benefit from acute rehab. Patient is motivated to return home and can perform 3 hours of therapy per day. I do believe that a [facility] facility would be detrimental to her psychological well-being. patient is obese and currently requires moderate assistance of 2 with transfers. There is the potential of increasing weight-bearing to the left lower extrem
[2020-10-06 18:11] VITALS: BP 106/50; PULSE 71; RESP 18; TEMP 36.5; O2SAT 99
[2020-10-07] VITALS (8 sets, daily range): BP systolic 109–144; BP diastolic 56–75; PULSE 64–76; RESP 16–18; TEMP 36.1–36.9; O2SAT 95–98
[2020-10-07 01:48] LABS: SARS-CoV-2 RNA PCR Negative
[2020-10-07] MEDS: oxyCODONE HCL (*CRX) 5 MG TAB IR PO ×3 (06:47→20:58)
[2020-10-07] MEDS: ASPIRIN 325 MG ENTERIC TABLET PO ×2 (08:06→20:58)
[2020-10-07] MEDS: DOCUSATE SODIUM 100 MG CAPSULE PO ×2 (08:06→16:28)
[2020-10-07] MEDS: OXAPROZIN 600 MG TABLET BY MOUTH ×2 (08:06→20:58)
[2020-10-07] MEDS: FLUoxetine HCL 20 MG CAPSULE 60 MG PO (08:06)
[2020-10-07] MEDS: amLODIPine BESYLATE 5 MG TABLET PO (08:07)
[2020-10-07] MEDS: metFORMIN HCL 500 MG TABLET PO (08:07)
[2020-10-07] MEDS: OLMESARTAN MEDOXOMIL 20 MG TABLET 40 MG PO (08:07)
[2020-10-07] MEDS: buPROPion HCL XL (24 HR) 150 MG TABCR 300 MG PO (09:35)
--- NOTE | 2020-10-07 11:45 | PM.PNORT ---
Progress Note: A&P Assessment and Plan (1) Closed extra-articular fracture of distal end of right radius: Code(s): S52.551A - Other extraarticular fracture of lower end of right radius, initial encounter for closed fracture Status: Acute Assessment and Plan: POD#1 ORIF distal radius fracture Patient is progressing well. Her pain is controlled. Block has warn off, no numbness or tingling in fingers. Full range of motion in her fingers and had intact light touch sensation. Patient's splint no longer in supination. Due to instability of the distal radial ulnar joint we will cast patient in supination. Patient is in a difficult situation with her non weight-bearing status due to the recent left ankle surgery. History of HERLINDA in right hip. Patient is at risk for another fall, or placing too much weight on either extremity. She may benefit from a platform walker when ambulating. Patient lives in her home alone and does not have assistance at home. She will need to be discharged to SNF/Rehab facility. Planning in progress. Awaiting acceptance to [facility]. Patient agrees with plan. Subjective Subjective Date/Time Seen: 10/07/20 08:45 POD#2 ORIF distal radius fracture Patient is progressing well. Sitting up in chair. Pain is controlled. She states that her cast on her foot will be removed on the 18. Prior to surgery she was very concerned about her eyes after having corneal abrasions with her previous surgeries. She has no blurry vision or gritty eyes. Block has worn off. No numbness or tingling in her fingers. She has not had a BM yet. Patient presented to the ER 09/29 after slipping and falling off of a scooter. Patient had surgery on her left foot about 3 weeks ago and has been nonweightbearing on her foot since then. She has been ambulating with a scooter. She states that she was turning around, lost her footing, and slipped falling directly onto her right wrist. She heard an immediate crack and had immediate severe pain. Review of Systems Review of Systems: All systems reviewed & are unremarkable except as noted in HPI and below Exam Extrem: Other: Obese 55-year-old female. Alert and oriented x3. No acute distress. Intact sugar-tong, supination splint on right arm. Patient is able to move her fingers. Light touch sensation intact. Intact capillary refill. Intact short leg cast on patient's left foot. Objective Data Vital Signs Vital Signs: Vital Signs - 24 hr 10/06/20 14:15 10/06/20 18:11 10/07/20 01:47 Temperature 98.8 F 97.7 F 97.5 F L Pulse Rate 69 71 67 Respiratory Rate 20 18 16 Blood Pressure 115/54 L 106/50 L 118/60 Pulse Oximetry 97 99 98 10/07/20 04:51 10/07/20 09:35 10/07/20 10:00 Temperature 98.3 F 96.9 F L Pulse Rate 64 75 Respiratory Rate 18 18 Blood Pressure 125/69 109/60 Pulse Oximetry 98 95 98 Intake/Output Intake/Output: Intake & Output 10/04/20 10/05/20 10/06/20 10/07/20 23:59 23:59 23:59 23:59 Intake Total 850 2020 680 Output Total 750 4800 1000 Balance 100 -2780 -320 Meds/Results Medications: Active Medications Generic Name Dose Route Start Last Admin Trade Name Lilia PRN Reason Stop Dose Admin Amlodipine Besylate 5 mg 10/05/20 17:00 10/07/20 08:07 Amlodipine Besylate 5 Mg Tablet PO 11/05/20 17:01 5 mg DAILY DAKOTAH Administration Aspirin 325 mg 10/05/20 21:00 10/07/20 08:06 Aspirin 325 Mg Enteric Tablet PO 325 mg Q12HR DAKOTAH Administration Bupropion HCl 300 mg 10/06/20 09:00 10/07/20 09:35 Bupropion Hcl Xl (24 Hr) 150 Mg Tabcr PO 300 mg QAM DAKOTAH Administration Calcium Carbonate 1,000 mg 10/06/20 09:00 10/07/20 09:36 Calcium/Vitamin D 500 Mg Tablet PO 11/05/20 09:01 1,000 mg DAILY DAKOTAH Administration Docusate Sodium 100 mg 10/05/20 17:00 10/07/20 08:06 Docusate Sodium 100 Mg Capsule PO 100 mg BID DAKOTAH Administration Fluoxetine HCl 60 mg 10/05/20 18:00 10/07/20 08:06 Fluoxetine Hcl 20 Mg Ca
--- NOTE | 2020-10-07 16:43 | WPDNEURORHBP ---
Subjective Date/time seen: 10/07/20 16:43 patient resting comfortably in bed Review of Systems Review of Systems: All systems reviewed & are unremarkable except as noted in HPI and below Musculoskeletal: Comments: patient complains of right incisional upper extremity pain Functional Status Ambulation Ability Ambulation Assistive Devices: Walker, Platform Transfers Ability Ability to Transfer In/Out of Chair: Moderate Assistance X 2 Exam Narrative: Exam Narrative: patient is resting comfortably in bed head is normocephalic extraocular muscles are intact unlabored breath sounds Objective Data Vital Signs Vital Signs: Vital Signs - 24 hr 10/06/20 18:11 10/07/20 01:47 10/07/20 04:51 Temperature 36.5 C 36.4 C L 36.8 C Pulse Rate 71 67 64 Respiratory Rate 18 16 18 Blood Pressure 106/50 L 118/60 125/69 Pulse Oximetry 99 98 98 10/07/20 09:35 10/07/20 10:00 10/07/20 14:00 Temperature 36.1 C L 36.9 C Pulse Rate 75 73 Respiratory Rate 18 18 Blood Pressure 109/60 118/56 L Pulse Oximetry 95 98 96 Intake/Output Intake/Output: Intake & Output 10/04/20 10/05/20 10/06/20 10/07/20 23:59 23:59 23:59 23:59 Intake Total 850 2020 1160 Output Total 750 4800 1000 Balance 100 -2780 160 Meds/Results Medications: Active Medications Generic Name Dose Route Start Last Admin Trade Name Freq PRN Reason Stop Dose Admin Amlodipine Besylate 5 mg 10/05/20 17:00 10/07/20 08:07 Amlodipine Besylate 5 Mg Tablet PO 11/05/20 17:01 5 mg DAILY DAKOTAH Administration Aspirin 325 mg 10/05/20 21:00 10/07/20 08:06 Aspirin 325 Mg Enteric Tablet PO 325 mg Q12HR DAKOTAH Administration Bupropion HCl 300 mg 10/06/20 09:00 10/07/20 09:35 Bupropion Hcl Xl (24 Hr) 150 Mg Tabcr PO 300 mg QAM DAKOTAH Administration Calcium Carbonate 1,000 mg 10/06/20 09:00 10/07/20 09:36 Calcium/Vitamin D 500 Mg Tablet PO 11/05/20 09:01 1,000 mg DAILY DAKOTAH Administration Docusate Sodium 100 mg 10/05/20 17:00 10/07/20 16:28 Docusate Sodium 100 Mg Capsule PO 100 mg BID DAKOTAH Administration Fluoxetine HCl 60 mg 10/05/20 18:00 10/07/20 08:06 Fluoxetine Hcl 20 Mg Capsule PO 60 mg DAILY DAKOTAH Administration Magnesium Hydroxide 30 ml 10/05/20 16:26 Magnesium Hydroxide Susp 30 Ml Udc PO BID PRN Constipation Metformin HCl 500 mg 10/05/20 18:00 10/07/20 08:07 Metformin Hcl 500 Mg Tablet PO 500 mg DAILY DAKOTAH Administration Olmesartan 40 mg 10/05/20 17:00 10/07/20 08:07 Olmesartan Medoxomil 20 Mg Tablet PO 11/05/20 17:01 40 mg DAILY DAKOTAH Administration Ondansetron HCl 4 mg 10/05/20 16:26 Ondansetron Inj 4 Mg/2 Ml Vial IV PUSH Q4H PRN Nausea And Vomiting Oxaprozin 600 mg 10/05/20 21:00 10/07/20 08:06 Oxaprozin 600 Mg Tablet BY MOUTH 600 mg Q12HR DAKOTAH Administration Oxybutynin Chloride 15 mg 10/06/20 09:00 10/07/20 08:06 Oxybutynin Chloride Xl 5 Mg Tab.Er.24 PO 15 mg DAILY DAKOTAH Administration Oxycodone HCl 5 mg 10/05/20 16:26 10/07/20 10:50 Oxycodone Hcl (*Crx) 5 Mg Tab Ir PO 5 mg Q4H PRN Administration Pain Rated 4-6 Oxycodone HCl 10 mg 10/05/20 16:26 Oxycodone Hcl (*Crx) 5 Mg Tab Ir PO Q4H PRN Pain 7-10 Radiology Results: ITS Impressions Intraoperative X-Ray 10/05/20 15:44 IMPRESSION: Fluoroscopy used during right radial metaphyseal ORIF. Labs Labs: Laboratory Results - last 24 hr 10/06/20 15:06 SARS-CoV-2 RNA (RT-PCR) Negative Progress Note: A&P Assessment and Plan (1) Closed extra-articular fracture of distal end of right radius: Code(s): S52.551A - Other extraarticular fracture of lower end of right radius, initial encounter for closed fracture Status: Acute (2) Closed fracture of right distal radius: Qualifiers: Encounter type: initial encounter Code(s): S52.501A - Unspecified fracture of the lower end of right radiu
[2020-10-08] MEDS: oxyCODONE HCL (*CRX) 5 MG TAB IR PO (03:32)
[2020-10-08 05:01] VITALS: BP 122/67; PULSE 68; RESP 16; TEMP 36.7; O2SAT 96
[2020-10-08] MEDS: MAGNESIUM HYDROXIDE SUSP 30 ML UDC PO (06:34)
[2020-10-08 08:00] VITALS: BP 119/74; PULSE 80; RESP 16; TEMP 35.9; O2SAT 94
[2020-10-08] MEDS: ASPIRIN 325 MG ENTERIC TABLET PO (08:54)
[2020-10-08] MEDS: buPROPion HCL XL (24 HR) 150 MG TABCR 300 MG PO (08:55)
[2020-10-08] MEDS: metFORMIN HCL 500 MG TABLET PO (08:55)
[2020-10-08] MEDS: FLUoxetine HCL 20 MG CAPSULE 60 MG PO (08:55)
[2020-10-08] MEDS: OLMESARTAN MEDOXOMIL 20 MG TABLET 40 MG PO (08:55)
[2020-10-08] MEDS: OXAPROZIN 600 MG TABLET BY MOUTH (08:55)
[2020-10-08] MEDS: amLODIPine BESYLATE 5 MG TABLET PO (08:56)
[2020-10-08] MEDS: DOCUSATE SODIUM 100 MG CAPSULE PO (08:59)
--- NOTE | 2020-10-08 12:51 | P.DS_ITS ---
DS: Admitting Diagnosis Admitting Diagnosis Admitting Diagnosis: Distal Radius fracture DS: Discharge Diagnosis Discharge Diagnosis (1) Closed extra-articular fracture of distal end of right radius: Code(s): S52.551A - Other extraarticular fracture of lower end of right radius, initial encounter for closed fracture Status: Acute DS: Summary Hospital Course Reason for hospitalization: ORIF distal radius fracture Hospital Course: Patient tolerated procedure well. Has had initial PT/OT. No complications. Pain well managed. Difficulty ambulating due to weight barring status on left foot. Status at Discharge Functional status at discharge: uses cane/walker Overall status at discharge: patient is progressing back to baseline Time Spent with Patient Time attestation: Total time spent providing and/or coordinating discharge services: Exam Extrem: Other: Obese 55-year-old female. Alert and oriented x3. No acute distress. Intact sugar-tong, supination splint on right arm. Patient is able to move her fingers. Light touch sensation intact. Intact capillary refill. Intact short leg cast on patient's left foot. Discharge Plan Discharge Attending physician on discharge: Skip Hilario Discharging Clinician: Edith Reyes Patient Disposition: Inpatient Rehab Facility Activity: november show Diet: regular Wound Care Instructions: follow printed instructions Discharge Instructions: * F/u appointments already made * Leave splint on until next visit (no cast needed) * Printed pain medication script * ASA 81 mg BID for 2 weeks for DVT prophylaxis Patient Instructions: Cast Care (DC), Pain Management (DC), Weakness (DC), Fall Prevention (DC), ORIF of a Wrist Fracture (DC) Stand Alone Forms: General Discharge Information Discharge Medications: New oxycodone-acetaminophen 5-325 mg tablet 1 - 2 tablet PO Q4-6H MDD 6 PRN (Reason: pain) Qty: 30 RF: 0 aspirin 81 mg tablet,delayed release (DR/EC) 81 mg PO BID 14 Days Qty: 28 RF: 0 Continued fluoxetine [Prozac] 20 mg capsule 60 mg PO DAILY RF: 0 oxycodone-acetaminophen [Percocet] 5-325 mg tablet 1 tablet PO Q4H PRN (Reason: pain) Qty: 14 RF: 0 calcium carbonate-vitamin D3 [Calcium 600 with Vitamin D3] 600 mg(1,500mg) - 200 unit Tablet 2 tablet PO DAILY RF: 0 metformin 500 mg tablet 500 mg PO DAILY Qty: 90 RF: 3 bupropion HCl [Wellbutrin XL] 300 mg tablet extended release 24 hr 300 mg PO QAM Qty: 90 RF: 3 amlodipine-olmesartan [Stephen] 5-40 mg tablet 1 tablet PO DAILY Qty: 90 RF: 3 oxybutynin chloride 15 mg tablet extended release 24hr 15 mg PO DAILY Qty: 90 RF: 3 oxaprozin 600 mg tablet See Rx Instructions .ROUTE .COMPLEX Qty: 180 RF: 0 Date of admission: 10/06/20 14:23 Primary Care Provider: Sammy Landaverde Admitting Provider: Skip Hilario Attending physician on admission: Skip Hilario Condition: Stable
== END 2020-10-08 13:55 ==
LOC: ANHSURGERY 14:26 → ANH2MED 14:26
PROVIDERS: Admitting Provider Orthopaedic Surgery; PCP Family Medicine; Visit Provider Orthopaedic Surgery
PROC: (CPT 25575; principal; 2020-10-05 13:00)
DX: S52.551A Other extraarticular fracture of lower end of right radius, initial encounter for closed fracture (principal); G89.18 Other acute postprocedural pain; Z20.822 Contact with and (suspected) exposure to COVID-19; W05.2XXA Fall from non-moving motorized mobility scooter, initial encounter; E11.9 Type 2 diabetes mellitus without complications; E66.01 Morbid (severe) obesity due to excess calories; E78.5 Hyperlipidemia, unspecified; E88.81 Metabolic syndrome and other insulin resistance; F41.8 Other specified anxiety disorders; I10 Essential (primary) hypertension; K21.9 Gastro-esophageal reflux disease without esophagitis; M21.372 Foot drop, left foot; M14.672 Charcot's joint, left ankle and foot; Z68.41 Body mass index [BMI] 40.0-44.9, adult; Z96.641 Presence of right artificial hip joint; Z79.84 Long term (current) use of oral hypoglycemic drugs
CPT/HCPCS: 25607; 64415; 82948; 97110; 97116; 97161; 97165; 97530; 97535; A9270; C9803; G0378; J0131; J0690; J1100; J1885; J2250; J2370; J2405; J2704; J3010; J7120; U0003; U0005

== ENCOUNTER 2020-10-08 13:50 | IRF | payer OTHER, SELFPAY ==
--- NOTE | ~2020-10-08 | XR_ITS ---
EXAMINATION: XR foot LT min 3V DATE: 10/13/2020 15:07 INDICATION: Left foot arthrodesis. TECHNIQUE: 4 views of left foot were obtained. COMPARISON: Left ankle radiographs 09/11/2020, left foot radiograph 12/30/2015 FINDINGS: Bone alignment is normal. No fracture. There are changes of resection of head of second pro ximal phalanx. There are changes of arthrodesis of first tarsometatarsal joint with plate and screws. There are arthrodesis procedures of talonavicular joint and calcaneocuboid joint with tessa and la g screw. There are changes of arthrodesis of the subtalar joint with a lag screw. There is mild osteo arthritis of first metatarsophalangeal joint and some of the navicular cuneiform joints. There are en thesophytes at the posterior and plantar aspects of calcaneal tuberosity. IMPRESSION: 1. Arthrodesis procedures of the subtalar joint, talonavicular joint, calcaneocuboid joint, and first tarsometatarsal joint. 2. Mild polyarticular osteoarthritis. Reviewed, dictated and finalized at location A. IMPRESSION: 1. Arthrodesis procedures of the subtalar joint, talonavicular joint, calcaneoc uboid joint, and first tarsometatarsal joint. 2. Mild polyarticular osteoarthritis.
--- NOTE | 2020-10-08 14:25 | ADMGEN ---
This patient, Deya Saha, was admitted to [facility] Room 224-02. Patient/family oriented to hospital policies and general routines including ID bracelet, bed and alarms, visiting hours, pain management, procedures, bathroom and other care routines, personal items, smoking policy, room service/diet, and visiting hours. Information on how to activate the Rapid Response Team has been discussed. Patient/Family are encouraged to report perceived risks to care and to ask questions if they do not understand what they are told or what they should do. transported via bed from [address] [place] [address], alert and oriented. pleasant and cooperative
--- NOTE | 2020-10-08 15:02 | ADMGEN ---
This patient, Deya Saha, was admitted to [facility] Room 224-02. Patient/family oriented to hospital policies and general routines including ID bracelet, bed and alarms, visiting hours, pain management, procedures, bathroom and other care routines, personal items, smoking policy, room service/diet, and visiting hours. Information on how to activate the Rapid Response Team has been discussed. Patient/Family are encouraged to report perceived risks to care and to ask questions if they do not understand what they are told or what they should do.
--- NOTE | 2020-10-08 15:02 | PC.NURSE ---
Patient states takes percocet with out problem. No allergy noted to it.
[2020-10-08 16:00] VITALS: BP 112/62; PULSE 78; RESP 18; TEMP 36.4; O2SAT 95; BMI 45.4
--- NOTE | 2020-10-08 16:21 | WPDREHABHP ---
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 Patient underwent arthrodesis involving subtalar, talonavicular, and calcaneocuboid joints and additional instrumentation of the 1st tarsometatarsal arthrodesis. Patient was discharged home in a cast with nonweightbearing for 6 weeks until October 15, 2020. On 09/29/2020 patient was turning on her scooter when she fell fracturing her right wrist. X-rays revealed a comminuted fracture of the distal radial metaphysis. Patient underwent closed reduction and splint placement and ORIF of the right distal radial fracture by Dr. Hilario on 10/05/20. Patient is NWB thru the RUE. She may use a platform walker. patient is participating paying well with therapy and is deemed a good candidate for inpatient rehab. Authorization has been approved by her insurance. She is currently minimal assistance of 1 for bed mobility, moderate assistance of 2 for transfers, total assistance of 1 for lower body dressing. Gait training has been started. COVID: The patient has not traveled outside the [place] or had contact with someone who is ill and has traveled outside the [place] in the past 21 days. Patient has not traveled to an area of the [place] that is experiencing known transmission of the daugherty virus and has not had close personal contact with anyone that has. The patient does not have a fever. The patient is not experiencing lower respiratory illness symptoms. COVID test is negative on 10/06/2020. Therapy was initiated at the acute care facility and patient is now being transferred to the [place] rehab unit on 10/08/2020 FALLS OR SURGERIES: The patient has had] major surgeries in the 100 days prior to admission. She has undergone a left foot ankle arthrodesis 09/11/2020 and ORIF of the right distal radius 10/05/2020.They had one falls in the past year. They had one falls with injury in the past year. PAST MEDICAL HISTORY: anxiety, arthritis of all major weight-bearing joints, left ankle Charcot joint, depression, metabolic syndrome with elevated glucose due to longstanding history of steroid use with prior diagnosis of lupus. 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 PAST SURGICAL HISTORY: Laminectomies x2 right hip surgery, ORIF of right distal radius 10/05/2020 left foot ankle arthrodesis 09/11/2020 SOCIAL HISTORY: patient is lives at home with her son her son has schizophrenia and stays in the basement of the home with limited interaction. Her son is unable to assist her. She has a niece 2nd help when she is at work and a great niece 2nd assists with director of revenue cycle management. Patient denies use of drugs or tobacco patient does drink alcohol. Prior to August 2020 patient was completely independent in all ADLs with no assistive device and was working full-time as an RN in the nursery. FAMILY HISTORY: Father had aneurysm hypertension heart disease. Mother had arthritis. Sibling had cancer PRIOR LEVEL OF FUNCTION: Eating was INDEPENDENT Oral Care was INDEPENDENT Toileting Hygiene was INDEPENDENT Shower/Bathing was INDEPENDENT Upper Body Dressing was INDEPENDENT Lower Body Dressing was INDEPENDENT Donning/[place] Footwear was INDEPENDENT Rolling Left and Ri
[2020-10-08] MEDS: OXAPROZIN 600 MG TABLET PO (17:09)
[2020-10-08] MEDS: ASPIRIN 81 MG ENTERIC TABLET PO (17:09)
[2020-10-08] MEDS: ACETAMINOPHEN 500 MG TABLET 1000 MG PO (17:09)
[2020-10-08 20:40] VITALS: PULSE 70; RESP 18; O2SAT 96
[2020-10-08 22:00] VITALS: BP 116/62; PULSE 70; RESP 18; TEMP 35.9; O2SAT 96
[2020-10-09 04:56] LABS: Basophils Percent Auto 0.4 % (0.2-1.2); Eosinophils Absolute Auto 0.5 K/mm3 (0-0.3); Eosinophils Percent Auto 9.2 % (0-4.4); Hematocrit 33.6 % (37.0-47.0); Hemoglobin 10.8 g/dL (12.0-15.0); Immature Granulocyte Absolute 0.01 K/mm3 (0.00-0.031); Immature Granulocyte Percent A 0.2 % (0-0.5); Lymphocytes Percent Auto 29.9 % (18.3-44.2); Mean Corpuscular HGB Conc 32.1 g/dl (32-36); Mean Platelet Volume 8.8 fl (7.4-10.4); Monocytes Absolute Auto 0.5 K/mm3 (0.1-0.6); Monocytes Percent Auto 9.4 % (2.6-8.5); Neutrophils Absolute Auto 2.6 K/mm3 (1.3-6.7); Neutrophils Percent Auto 50.9 % (45.5-73.1); Platelet Count Result 244 k/mm3 (150-375); Red Blood Count 4.15 M/mm3 (4.2-5.4); Red Cell Distribution Width 14.8 % (11.5-14.5)
[2020-10-09 05:11] LABS: Anion Gap 3 mmol/L (8-16); Blood Urea Nitrogen 15 mg/dL (7-17); Calcium 8.8 mg/dL (8.4-10.2); Carbon Dioxide 32 mmol/L (22-30); Chloride 105 mmol/L (98-107); Estimated CRCL calculation 114 ml/min; Estimated Glomerular Filt Rate > 60; Glucose 106 mg/dL (65-105); Potassium 4.5 mmol/L (3.4-5.0); Sodium 140 mmol/L (137-145)
[2020-10-09 05:32] VITALS: BP 121/68; PULSE 60; RESP 16; TEMP 36.1; O2SAT 97
[2020-10-09 08:00] VITALS: PULSE 60; RESP 16; O2SAT 97
[2020-10-09] MEDS: oxyCODONE/ACETAMINOPHEN (*CRX) 5-325 MG TABLET 2 TABLET PO ×2 (08:37→20:26)
[2020-10-09] MEDS: ASPIRIN 81 MG ENTERIC TABLET PO ×2 (08:39→16:41)
[2020-10-09] MEDS: metFORMIN HCL 500 MG TABLET PO (08:41)
[2020-10-09] MEDS: FLUoxetine HCL 20 MG CAPSULE 60 MG PO (08:41)
[2020-10-09] MEDS: OXAPROZIN 600 MG TABLET PO ×2 (08:41→16:41)
[2020-10-09] MEDS: amLODIPine BESYLATE 5 MG TABLET PO (08:41)
[2020-10-09] MEDS: buPROPion HCL XL (24 HR) 150 MG TABCR 300 MG PO (08:42)
[2020-10-09] MEDS: OLMESARTAN MEDOXOMIL 20 MG TABLET 40 MG PO (08:42)
--- NOTE | 2020-10-09 12:27 | WPDNEURORHBP ---
Subjective Date/time seen: 10/09/20 12:27 Patient feels wonderful after receiving a shower. Patient voices no complaints Review of Systems Review of Systems: All systems reviewed & are unremarkable except as noted in HPI and below Gastrointestinal: Comments: patient had a large bowel movement yesterday Functional Status Ambulation Ability Ability to Ambulate 10 Feet: Minimum Assistance X 1 Ambulation Assistive Devices: Walker, Platform and Walker, Wheeled Transfers Ability Ability to Transfer In/Out of Chair: Minimum Assistance X 1 Exam Narrative: Exam Narrative: patient is seen this morning during showering activities. Sitting balance is good. Head is normocephalic. Extraocular muscles are intact. Neck is supple. Heart rhythm is regular. Lungs are clear to auscultation. Abdomen is obese. Upper and lower casts are noted without change from previous exam. Function transfers at Min assist Objective Data Vital Signs Vital Signs: Vital Signs - 24 hr 10/08/20 16:00 10/08/20 20:40 10/08/20 22:00 Temperature 36.4 C L 35.9 C L Pulse Rate 78 70 70 Respiratory Rate 18 18 18 Blood Pressure 112/62 116/62 Pulse Oximetry 95 96 96 10/09/20 05:32 10/09/20 08:00 Temperature 36.1 C L Pulse Rate 60 60 Respiratory Rate 16 16 Blood Pressure 121/68 Pulse Oximetry 97 97 Intake/Output Intake/Output: Intake & Output 10/06/20 10/07/20 10/08/20 10/09/20 23:59 23:59 23:59 23:59 Intake Total 240 360 Balance 240 360 Meds/Results Medications: Active Medications Generic Name Dose Route Start Last Admin Trade Name Collinq PRN Reason Stop Dose Admin Acetaminophen 1,000 mg 10/08/20 16:09 10/08/20 17:09 Acetaminophen 500 Mg Tablet PO 1,000 mg Q6H PRN Administration Mild Pain (1-3) or Fever Amlodipine Besylate 5 mg 10/09/20 09:00 10/09/20 08:41 Amlodipine Besylate 5 Mg Tablet PO 5 mg DAILY DAKOTAH Administration Aspirin 81 mg 10/08/20 17:00 10/09/20 08:39 Aspirin 81 Mg Enteric Tablet PO 81 mg BID DAKOTAH Administration Bupropion HCl 300 mg 10/09/20 09:00 10/09/20 08:42 Bupropion Hcl Xl (24 Hr) 150 Mg Tabcr PO 300 mg QAM DAKOTAH Administration Calcium Carbonate 1,000 mg 10/09/20 09:00 10/09/20 08:40 Calcium/Vitamin D 500 Mg Tablet PO 1,000 mg DAILY DAKOTAH Administration Fluoxetine HCl 60 mg 10/09/20 09:00 10/09/20 08:41 Fluoxetine Hcl 20 Mg Capsule PO 60 mg DAILY DAKOTAH Administration Hydrocortisone 1 applic 10/08/20 21:00 10/09/20 08:41 Hydrocortisone (Proctozone-Hc) 2.5% Cream 30 Gm Tube RECTAL 1 applic Q12HR DAKOTAH Administration Metformin HCl 500 mg 10/09/20 09:00 10/09/20 08:41 Metformin Hcl 500 Mg Tablet PO 500 mg DAILY DAKOTAH Administration Olmesartan 40 mg 10/09/20 09:00 10/09/20 08:42 Olmesartan Medoxomil 20 Mg Tablet PO 40 mg DAILY DAKOTAH Administration Oxaprozin 600 mg 10/08/20 17:00 10/09/20 08:41 Oxaprozin 600 Mg Tablet PO 600 mg BID DAKOTAH Administration Oxybutynin Chloride 15 mg 10/09/20 09:00 10/09/20 08:39 Oxybutynin Chloride Xl 5 Mg Tab.Er.24 PO 15 mg DAILY DAKOTAH Administration Oxycodone/Acetaminophen 2 tablet 10/08/20 14:52 10/09/20 08:37 Oxycodone/Acetaminophen (*Crx) 5-325 Mg Tablet PO 2 tablet Q4H PRN Administration Pain Rated 7-10 Oxycodone/Acetaminophen 1 tablet 10/08/20 14:52 Oxycodone/Acetaminophen (*Crx) 5-325 Mg Tablet PO Q4-6H PRN Pain Rated 4-6 Labs Labs: Laboratory Results - last 24 hr 10/09/20 10/09/20 04:48 04:48 WBC 5.0 RBC 4.15 L Hgb 10.8 L Hct 33.6 L MCV 81.0 MCH 26.0 MCHC 32.1 RDW 14.8 H Plt Count 244 MPV 8.8 Immature Gran % (Auto) 0.2 Neut % (Auto) 50.9 Lymph % (Auto) 29.9 [place] % (Auto) 9.4 H Eos % (Auto) 9.2 H Baso % (Auto) 0.4 Lymph # (Auto) 1.50 [place] # (Auto) 0.5 Eos # (Auto) 0.5 H Baso # (Auto) 0.0 Abs Immat Gran (auto) 0.01 Absolute Neuts (auto) 2.6 Absolute
[2020-10-09 12:53] VITALS: TEMP 36.1
[2020-10-09] MEDS: ACETAMINOPHEN 500 MG TABLET 1000 MG PO (12:53)
[2020-10-09 13:08] VITALS: BMI 45.4
[2020-10-09 13:51] VITALS: TEMP 36.1
[2020-10-09 14:00] VITALS: BP 121/69; PULSE 78; RESP 20; TEMP 36.2; O2SAT 98
--- NOTE | 2020-10-09 14:15 | PCNSR ---
On 10/09/20, the student, Katy Pineda, provided care and completed [facility] documentation on this patient. I have reviewed the student's documentation and agree with the findings.
--- NOTE | 2020-10-09 15:11 | RPD ---
INDIVIDUALIZED PLAN OF CARE FOR Deya Saha Brief Synthesis of Pre-Admission Screen, Post-Admission Evaluation and Therapy Evaluations: The patient presents to rehab with s/p left lower extremity surgery requiring non-weight bearing and now S/P Right distal radius ORIF requiring Non-weight bearing status. Comorbidities include s/p ORIF right distal radius fracture, GERD, charcot ankle, anxiety, diabetes, morbid obesity, metabolic syndrome, opthalmoplegic migraine, HLD, urge incontinence, and prepatellar bursitis.The complexity of the patient's medical management, nursing, and therapy needs require an inpatient rehab hospital stay with a physician-led interdisciplinary team approach. The patient?s needs will be best met in an intensive program vs. at a lower level of care. The patient requires physician services for medical oversight, management of postop complications in setting of present comorbidities, and pain management. She will be followed at least three times a week by the rehabilitation physician. Orthopedics may see the patient at the frequency of their discretion. Labs will be drawn to monitor blood counts and electrolytes periodically. The patient requires nursing services for DVT prophylactics, infection protection, medication management and education, pressure relief, and wound care Deficits include:ADLs, Balance, Endurance, Family Training/Education, Mobility, Pain Management, ROM, Safety, Strength, and Transfers. Refining Still Operator/Case Management for: Discharge Planning and Patient/Family Counseling Physical Therapy: 5 days per week for 90 minutes. Treatments may include: Therapeutic Exercise, Gait Training, Neuromuscular Re-education, Transfer Training, Community Reintegration, Bed Mobility, Patient/Family Education, Wheelchair Mobility Group Therapy/Concurrent Therapy Rationales: -Improve attention span during functional activities in a distracted environment. -Enhance problem solving and/or adequate judgment skills during functional activities in a distracted environment. -Promote increased safety awareness in a distracted environment to reduce fall risk with functional tasks, transfers, and ambulation to allow a more safe, self-sufficient return to the home environment. -Improve dynamic balance skills to promote safety and independence with functional activities in a distracted environment for maximum gain. Occupational Therapy: 5 days per week for 90 minutes. Treatments may include: Therapeutic Exercise, Therapeutic Activity, Cognitive Training, Self-Care Transfer Training, Community Reintegration, Home Management, Patient/Family Education, Wheelchair Mobility Training, Energy Conservation Training Group Therapy/Concurrent Therapy Rationales: -Allow therapist to observe and teach generalization and carry-over of skills learned in individual therapy. -Enhance problem solving and sequencing skills during therapeutic activities in a distracted environment. -Promote increased safety awareness in a realistic setting to reduce fall risk with functional tasks due to visual and verbal distractions. -Increase functional level with ADLs, ADL transfers and use of adaptive equipment through therapeutic activities with others while promoting safety to allow a more safe, self-sufficient return home. Medical Prognosis: Good Anticipated Length of Stay: 10 days Rehab Goals: Eating Goal: 06-Independent Oral Hygiene Goal: 06-Independent Toileting Hygiene Goal: 06-Independent Shower/Bathe Self Goal: 06-Independent Upper Body Dressing Goal: 06-Independent Lower Body Dressing Goal: 06-Independent Putting On/Taking Off Footwear Goal: 06-Independent Rolling Left and Right Goal: 06-Independent Sit to Lying Goal: 06-Independent Lying to Sitting on Side of Bed Goal: 06-Independent Sit to Stand Goal: 06-Independent Chair/[id number] Transfer Goal: 06-Independent Toilet Transfer Goal: 06-Independent Car Transfer Goal: 06-Independent Walk 10' Goal: 06-Independent
[2020-10-09 21:06] VITALS: BP 122/83; PULSE 86; RESP 22; TEMP 35.9; O2SAT 96
[2020-10-10 05:46] VITALS: BP 107/63; PULSE 65; RESP 16; TEMP 35.7; O2SAT 97
--- NOTE | 2020-10-10 09:10 | WPDNEURORHBP ---
Subjective Date/time seen: 10/10/20 09:10 patient is seen during morning rounds. Patient voices no complaints. Patient does admit to decreased swelling to the right fingertips. Review of Systems Review of Systems: All systems reviewed & are unremarkable except as noted in HPI and below Functional Status Ambulation Ability Ability to Ambulate 10 Feet: Minimum Assistance X 1 Ambulation Assistive Devices: Walker, Platform and Walker, Wheeled Transfers Ability Ability to Transfer In/Out of Chair: Minimum Assistance X 1 Exam Narrative: Exam Narrative: Patient is resting comfortably in bed. Head is normocephalic. Extraocular muscles are intact. Neck is supple. Speech is fluent. Heart rate rhythm is regular. Lungs are clear to auscultation. Abdomen is soft nontender. Left upper extremity strength arms 4+ out of 5 right upper extremity strength is in a long-arm cast. Right lower extremity strength is 4-5 left lower extremity is essentially 4-5 and is in a short ankle cast. Ankle and foot strength is not tested Objective Data Vital Signs Vital Signs: Vital Signs - 24 hr 10/09/20 12:53 10/09/20 13:51 10/09/20 14:00 Temperature 36.1 C L 36.1 C L 36.2 C L Pulse Rate 78 Respiratory Rate 20 Blood Pressure 121/69 Pulse Oximetry 98 10/09/20 21:06 10/10/20 05:46 Temperature 35.9 C L 35.7 C L Pulse Rate 86 65 Respiratory Rate 22 H 16 Blood Pressure 122/83 107/63 Pulse Oximetry 96 97 Intake/Output Intake/Output: Intake & Output 10/07/20 10/08/20 10/09/20 10/10/20 23:59 23:59 23:59 23:59 Intake Total 240 1200 480 Balance 240 1200 480 Meds/Results Medications: Active Medications Generic Name Dose Route Start Last Admin Trade Name Freq PRN Reason Stop Dose Admin Acetaminophen 1,000 mg 10/08/20 16:09 10/09/20 12:53 Acetaminophen 500 Mg Tablet PO 1,000 mg Q6H PRN Administration Mild Pain (1-3) or Fever Amlodipine Besylate 5 mg 10/09/20 09:00 10/09/20 08:41 Amlodipine Besylate 5 Mg Tablet PO 5 mg DAILY DAKOTAH Administration Aspirin 81 mg 10/08/20 17:00 10/09/20 16:41 Aspirin 81 Mg Enteric Tablet PO 81 mg BID DAKOTAH Administration Bupropion HCl 300 mg 10/09/20 09:00 10/09/20 08:42 Bupropion Hcl Xl (24 Hr) 150 Mg Tabcr PO 300 mg QAM DAKOTAH Administration Calcium Carbonate 1,000 mg 10/09/20 09:00 10/09/20 08:40 Calcium/Vitamin D 500 Mg Tablet PO 1,000 mg DAILY DAKOTAH Administration Fluoxetine HCl 60 mg 10/09/20 09:00 10/09/20 08:41 Fluoxetine Hcl 20 Mg Capsule PO 60 mg DAILY DAKOTAH Administration Hydrocortisone 1 applic 10/08/20 21:00 10/09/20 20:24 Hydrocortisone (Proctozone-Hc) 2.5% Cream 30 Gm Tube RECTAL 1 applic Q12HR DAKOTAH Administration Metformin HCl 500 mg 10/09/20 09:00 10/09/20 08:41 Metformin Hcl 500 Mg Tablet PO 500 mg DAILY DAKOTAH Administration Olmesartan 40 mg 10/09/20 09:00 10/09/20 08:42 Olmesartan Medoxomil 20 Mg Tablet PO 40 mg DAILY DAKOTAH Administration Oxaprozin 600 mg 10/08/20 17:00 10/09/20 16:41 Oxaprozin 600 Mg Tablet PO 600 mg BID DAKOTAH Administration Oxybutynin Chloride 15 mg 10/09/20 09:00 10/09/20 08:39 Oxybutynin Chloride Xl 5 Mg Tab.Er.24 PO 15 mg DAILY DAKOTAH Administration Oxycodone/Acetaminophen 2 tablet 10/08/20 14:52 10/09/20 20:26 Oxycodone/Acetaminophen (*Crx) 5-325 Mg Tablet PO 2 tablet Q4H PRN Administration Pain Rated 7-10 Oxycodone/Acetaminophen 1 tablet 10/08/20 14:52 Oxycodone/Acetaminophen (*Crx) 5-325 Mg Tablet PO Q4-6H PRN Pain Rated 4-6 Progress Note: A&P Assessment and Plan (1) Closed extra-articular fracture of distal end of right radius: Code(s): S52.551A - Other extraarticular fracture of lower end of right radius, initial encounter for closed fracture Status: Acute (2) Closed fracture of right distal radius: Qualifiers: Encounter type: initial encounter Code(s):
--- NOTE | 2020-10-10 09:13 | WPDNEURORHBP ---
Subjective Date/time seen: 10/10/20 09:13 patient is in good spirits. Patient voices no complaints. Review of Systems Review of Systems: All systems reviewed & are unremarkable except as noted in HPI and below Functional Status Ambulation Ability Ability to Ambulate 10 Feet: Minimum Assistance X 1 Ambulation Assistive Devices: Walker, Platform and Walker, Wheeled Transfers Ability Ability to Transfer In/Out of Chair: Minimum Assistance X 1 Exam Narrative: Exam Narrative: Patient is in no acute distress head is normocephalic. Extraocular muscles are intact. Neck is supple. Speech is fluent. Heart rate and rhythm is regular. Lungs are clear to auscultation. Abdomen is obese soft nontender. Right side strength is roughly 4/5 left upper extremity is in a cast. Left lower extremity proximal weakness persists following hip fracture. Objective Data Vital Signs Vital Signs: Vital Signs - 24 hr 10/09/20 12:53 10/09/20 13:51 10/09/20 14:00 Temperature 36.1 C L 36.1 C L 36.2 C L Pulse Rate 78 Respiratory Rate 20 Blood Pressure 121/69 Pulse Oximetry 98 10/09/20 21:06 10/10/20 05:46 Temperature 35.9 C L 35.7 C L Pulse Rate 86 65 Respiratory Rate 22 H 16 Blood Pressure 122/83 107/63 Pulse Oximetry 96 97 Intake/Output Intake/Output: Intake & Output 10/07/20 10/08/20 10/09/20 10/10/20 23:59 23:59 23:59 23:59 Intake Total 240 1200 480 Balance 240 1200 480 Meds/Results Medications: Active Medications Generic Name Dose Route Start Last Admin Trade Name Lilia PRN Reason Stop Dose Admin Acetaminophen 1,000 mg 10/08/20 16:09 10/09/20 12:53 Acetaminophen 500 Mg Tablet PO 1,000 mg Q6H PRN Administration Mild Pain (1-3) or Fever Amlodipine Besylate 5 mg 10/09/20 09:00 10/09/20 08:41 Amlodipine Besylate 5 Mg Tablet PO 5 mg DAILY DAKOTAH Administration Aspirin 81 mg 10/08/20 17:00 10/09/20 16:41 Aspirin 81 Mg Enteric Tablet PO 81 mg BID DAKOTAH Administration Bupropion HCl 300 mg 10/09/20 09:00 10/09/20 08:42 Bupropion Hcl Xl (24 Hr) 150 Mg Tabcr PO 300 mg QAM DAKOTAH Administration Calcium Carbonate 1,000 mg 10/09/20 09:00 10/09/20 08:40 Calcium/Vitamin D 500 Mg Tablet PO 1,000 mg DAILY DAKOTAH Administration Fluoxetine HCl 60 mg 10/09/20 09:00 10/09/20 08:41 Fluoxetine Hcl 20 Mg Capsule PO 60 mg DAILY DAKOTAH Administration Hydrocortisone 1 applic 10/08/20 21:00 10/09/20 20:24 Hydrocortisone (Proctozone-Hc) 2.5% Cream 30 Gm Tube RECTAL 1 applic Q12HR DAKOTAH Administration Metformin HCl 500 mg 10/09/20 09:00 10/09/20 08:41 Metformin Hcl 500 Mg Tablet PO 500 mg DAILY DAKOTAH Administration Olmesartan 40 mg 10/09/20 09:00 10/09/20 08:42 Olmesartan Medoxomil 20 Mg Tablet PO 40 mg DAILY DAKOTAH Administration Oxaprozin 600 mg 10/08/20 17:00 10/09/20 16:41 Oxaprozin 600 Mg Tablet PO 600 mg BID DAKOTAH Administration Oxybutynin Chloride 15 mg 10/09/20 09:00 10/09/20 08:39 Oxybutynin Chloride Xl 5 Mg Tab.Er.24 PO 15 mg DAILY DAKOTAH Administration Oxycodone/Acetaminophen 2 tablet 10/08/20 14:52 10/09/20 20:26 Oxycodone/Acetaminophen (*Crx) 5-325 Mg Tablet PO 2 tablet Q4H PRN Administration Pain Rated 7-10 Oxycodone/Acetaminophen 1 tablet 10/08/20 14:52 Oxycodone/Acetaminophen (*Crx) 5-325 Mg Tablet PO Q4-6H PRN Pain Rated 4-6 Progress Note: A&P Assessment and Plan (1) Closed extra-articular fracture of distal end of right radius: Code(s): S52.551A - Other extraarticular fracture of lower end of right radius, initial encounter for closed fracture Status: Acute (2) Closed fracture of right distal radius: Qualifiers: Encounter type: initial encounter Code(s): S52.501A - Unspecified fracture of the lower end of right radius, initial encounter for closed fracture Status: Acute (3) Charcot ankle: Qualifiers: Laterality:
[2020-10-10] MEDS: metFORMIN HCL 500 MG TABLET PO (09:37)
[2020-10-10] MEDS: OLMESARTAN MEDOXOMIL 20 MG TABLET 40 MG PO (09:37)
[2020-10-10] MEDS: OXAPROZIN 600 MG TABLET PO ×2 (09:37→17:26)
[2020-10-10] MEDS: amLODIPine BESYLATE 5 MG TABLET PO (09:37)
[2020-10-10] MEDS: buPROPion HCL XL (24 HR) 150 MG TABCR 300 MG PO (09:37)
[2020-10-10] MEDS: ASPIRIN 81 MG ENTERIC TABLET PO ×2 (09:37→17:25)
[2020-10-10] MEDS: FLUoxetine HCL 20 MG CAPSULE 60 MG PO (09:37)
[2020-10-10] MEDS: ACETAMINOPHEN 500 MG TABLET 1000 MG PO ×2 (09:39→17:26)
--- NOTE | 2020-10-10 13:43 | PCOTNOTE ---
Patient tolerated static standing with platform wheeled walker 3-4 minutes x2 CGA for functional reach activity to simulate 1-handed clothing management during toileting with good follow through. Educated patient on cord with clip on ends to help hold pants within easy reach during standing aspects of ADL's; verbalized good understanding of compensatory technique.
[2020-10-10 14:00] VITALS: BP 123/80; PULSE 78; RESP 18; TEMP 35.6; O2SAT 96
[2020-10-10 21:11] VITALS: BP 135/78; PULSE 73; RESP 20; TEMP 35.9; O2SAT 98
--- NOTE | 2020-10-11 03:53 | PC.NURSE ---
Daylight Savings Time For Daylight Savings Time Ending in the Fall - Clocks are moved back. For Daylight Savings Time Beginning in the Spring - Clocks are moved ahead. For [facility], the time of change occurs at 0200 hrs. Time is taken from the catering server. This entry on the patient's chart recognizes the change in time reflected during documentation. Example: 2 entries for vital signs may be charted for 0200 hrs.
[2020-10-11 04:35] VITALS: BP 118/60; PULSE 69; RESP 22; TEMP 36; O2SAT 100
[2020-10-11] MEDS: FLUoxetine HCL 20 MG CAPSULE 60 MG PO (08:03)
[2020-10-11] MEDS: OXAPROZIN 600 MG TABLET PO ×2 (08:04→16:58)
[2020-10-11] MEDS: OLMESARTAN MEDOXOMIL 20 MG TABLET 40 MG PO (08:04)
[2020-10-11] MEDS: ASPIRIN 81 MG ENTERIC TABLET PO ×2 (08:04→16:58)
[2020-10-11] MEDS: buPROPion HCL XL (24 HR) 150 MG TABCR 300 MG PO (08:04)
[2020-10-11] MEDS: metFORMIN HCL 500 MG TABLET PO (08:05)
[2020-10-11] MEDS: amLODIPine BESYLATE 5 MG TABLET PO (08:12)
[2020-10-11] MEDS: oxyCODONE/ACETAMINOPHEN (*CRX) 5-325 MG TABLET 2 TABLET PO ×2 (08:16→14:29)
--- NOTE | 2020-10-11 10:26 | WPDNEURORHBP ---
Subjective Date/time seen: 10/11/20 10:26 patient is in good spirits. I explained to patient that we will attempt to get ortho to come to the floor and to avoid her going to the office. Review of Systems Review of Systems: All systems reviewed & are unremarkable except as noted in HPI and below Functional Status Ambulation Ability Ability to Ambulate 10 Feet: Minimum Assistance X 1 Ambulation Assistive Devices: Walker, Platform Transfers Ability Ability to Transfer In/Out of Chair: Minimum Assistance X 1 Exam Narrative: Exam Narrative: Patient is alert and oriented. Patient at times is anxious. Heart rate and rhythm is regular. Lungs are clear to auscultation. Abdomen is obese. Patient is at contact guard to min assist with bed transfers. Patient is able to pivot with Min to contact guard Objective Data Vital Signs Vital Signs: Vital Signs - 24 hr 10/10/20 14:00 10/10/20 21:11 10/11/20 04:35 Temperature 35.6 C L 35.9 C L 36.0 C L Pulse Rate 78 73 69 Respiratory Rate 18 20 22 H Blood Pressure 123/80 135/78 118/60 Pulse Oximetry 96 98 100 Intake/Output Intake/Output: Intake & Output 10/08/20 10/09/20 10/10/20 10/12/20 23:59 23:59 23:59 00:59 Intake Total 240 1200 840 240 Balance 240 1200 840 240 Meds/Results Medications: Active Medications Generic Name Dose Route Start Last Admin Trade Name Freq PRN Reason Stop Dose Admin Acetaminophen 1,000 mg 10/08/20 16:09 10/10/20 17:26 Acetaminophen 500 Mg Tablet PO 1,000 mg Q6H PRN Administration Mild Pain (1-3) or Fever Amlodipine Besylate 5 mg 10/09/20 09:00 10/11/20 08:12 Amlodipine Besylate 5 Mg Tablet PO 5 mg DAILY DAKOTAH Administration Aspirin 81 mg 10/08/20 17:00 10/11/20 08:04 Aspirin 81 Mg Enteric Tablet PO 81 mg BID DAKOTAH Administration Bupropion HCl 300 mg 10/09/20 09:00 10/11/20 08:04 Bupropion Hcl Xl (24 Hr) 150 Mg Tabcr PO 300 mg QAM DAKOTAH Administration Calcium Carbonate 1,000 mg 10/09/20 09:00 10/11/20 08:04 Calcium/Vitamin D 500 Mg Tablet PO 1,000 mg DAILY DAKOTAH Administration Fluoxetine HCl 60 mg 10/09/20 09:00 10/11/20 08:03 Fluoxetine Hcl 20 Mg Capsule PO 60 mg DAILY [facility] Administration Hydrocortisone 1 applic 10/11/20 09:54 Hydrocortisone (Proctozone-Hc) 2.5% Cream 30 Gm Tube RECTAL Q12HR PRN Hemorrhoids Metformin HCl 500 mg 10/09/20 09:00 10/11/20 08:05 Metformin Hcl 500 Mg Tablet PO 500 mg DAILY DAKOTAH Administration Olmesartan 40 mg 10/09/20 09:00 10/11/20 08:04 Olmesartan Medoxomil 20 Mg Tablet PO 40 mg DAILY DAKOTAH Administration Oxaprozin 600 mg 10/08/20 17:00 10/11/20 08:04 Oxaprozin 600 Mg Tablet PO 600 mg BID DAKOTAH Administration Oxybutynin Chloride 15 mg 10/09/20 09:00 10/11/20 08:05 Oxybutynin Chloride Xl 5 Mg Tab.Er.24 PO 15 mg DAILY DAKOTAH Administration Oxycodone/Acetaminophen 2 tablet 10/08/20 14:52 10/11/20 08:16 Oxycodone/Acetaminophen (*Crx) 5-325 Mg Tablet PO 2 tablet Q4H PRN Administration Pain Rated 7-10 Oxycodone/Acetaminophen 1 tablet 10/08/20 14:52 Oxycodone/Acetaminophen (*Crx) 5-325 Mg Tablet PO Q4-6H PRN Pain Rated 4-6 Polyethylene Glycol 17 gm 10/11/20 09:00 Polyethylene Glycol 3350 17 Gm Powd.Pack PO QAM [facility] Progress Note: A&P Assessment and Plan (1) Closed extra-articular fracture of distal end of right radius: Code(s): S52.551A - Other extraarticular fracture of lower end of right radius, initial encounter for closed fracture Status: Acute (2) Closed fracture of right distal radius: Qualifiers: Encounter type: initial encounter Code(s): S52.501A - Unspecified fracture of the lower end of right radius, initial encounter for closed fracture Status: Acute (3) Foot drop, left: Code(s): M21.372 - Foot drop, left foot Status: Acute (4) Charcot ankle: Qualifiers: Late
[2020-10-11] MEDS: polyethylene glycoL 3350 17 GM POWD.PACK PO (12:30)
[2020-10-11 14:00] VITALS: BP 128/67; PULSE 87; RESP 20; TEMP 36.6; O2SAT 94
[2020-10-11 20:04] VITALS: BP 134/75; PULSE 76; RESP 20; TEMP 35.8; O2SAT 97
[2020-10-12 06:00] VITALS: BP 137/79; PULSE 58; RESP 16; TEMP 36.3; O2SAT 100
[2020-10-12] MEDS: oxyCODONE/ACETAMINOPHEN (*CRX) 5-325 MG TABLET 1 TABLET PO (08:39)
[2020-10-12] MEDS: FLUoxetine HCL 20 MG CAPSULE 60 MG PO (08:44)
[2020-10-12] MEDS: OXAPROZIN 600 MG TABLET PO ×2 (08:44→16:56)
[2020-10-12] MEDS: amLODIPine BESYLATE 5 MG TABLET PO (08:46)
[2020-10-12] MEDS: ASPIRIN 81 MG ENTERIC TABLET PO ×2 (08:46→16:56)
[2020-10-12] MEDS: buPROPion HCL XL (24 HR) 150 MG TABCR 300 MG PO (08:46)
[2020-10-12] MEDS: polyethylene glycoL 3350 17 GM POWD.PACK PO (08:46)
[2020-10-12] MEDS: OLMESARTAN MEDOXOMIL 20 MG TABLET 40 MG PO (08:47)
[2020-10-12] MEDS: metFORMIN HCL 500 MG TABLET PO (08:47)
--- NOTE | 2020-10-12 10:20 | WPDNEURORHBP ---
Subjective Date/time seen: 10/12/20 10:20 Patient was seen on morning rounds. Coordination of Podiatry follow-up is underway. Patient wants Tylenol Q 4 p.r.n. Review of Systems Review of Systems: All systems reviewed & are unremarkable except as noted in HPI and below Gastrointestinal: Gastrointestinal: Reports constipation Musculoskeletal: Comments: pain to right wrist at times. Functional Status Ambulation Ability Ability to Ambulate 10 Feet: Contact Guard Ambulation Assistive Devices: Walker, Platform Transfers Ability Ability to Transfer In/Out of Chair: Minimum Assistance X 1 Exam Narrative: Exam Narrative: Patient is resting comfortably in bed. In no acute distress. Head is normocephalic. Voice is clear. Heart rate and rhythm is regular. Lungs are clear to auscultation. Abdomen is obese soft nontender left upper extremity strength is 4/5 right lower extremity strength is 4+ out of 5 right upper extremity is in a cast. Left lower extremity is in the small short cast Objective Data Vital Signs Vital Signs: Vital Signs - 24 hr 10/11/20 14:00 10/11/20 20:04 10/12/20 06:00 Temperature 36.6 C 35.8 C L 36.3 C L Pulse Rate 87 76 58 L Respiratory Rate 20 20 16 Blood Pressure 128/67 134/75 137/79 Pulse Oximetry 94 97 100 Intake/Output Intake/Output: Intake & Output 10/09/20 10/10/20 10/11/20 10/12/20 22:59 22:59 23:59 23:59 Intake Total 480 Balance 480 Meds/Results Medications: Active Medications Generic Name Dose Route Start Last Admin Trade Name Collinq PRN Reason Stop Dose Admin Acetaminophen 1,000 mg 10/12/20 09:33 Acetaminophen 500 Mg Tablet PO Q4H PRN Mild Pain (1-3) or Fever Amlodipine Besylate 5 mg 10/09/20 09:00 10/12/20 08:46 Amlodipine Besylate 5 Mg Tablet PO 5 mg DAILY DAKOTAH Administration Aspirin 81 mg 10/08/20 17:00 10/12/20 08:46 Aspirin 81 Mg Enteric Tablet PO 81 mg BID DAKOTAH Administration Bupropion HCl 300 mg 10/09/20 09:00 10/12/20 08:46 Bupropion Hcl Xl (24 Hr) 150 Mg Tabcr PO 300 mg QAM DAKOTAH Administration Calcium Carbonate 1,000 mg 10/09/20 09:00 10/12/20 08:48 Calcium/Vitamin D 500 Mg Tablet PO 1,000 mg DAILY DAKOTAH Administration Fluoxetine HCl 60 mg 10/09/20 09:00 10/12/20 08:44 Fluoxetine Hcl 20 Mg Capsule PO 60 mg DAILY DAKOTAH Administration Hydrocortisone 1 applic 10/11/20 09:54 Hydrocortisone (Proctozone-Hc) 2.5% Cream 30 Gm Tube RECTAL Q12HR PRN Hemorrhoids Metformin HCl 500 mg 10/09/20 09:00 10/12/20 08:47 Metformin Hcl 500 Mg Tablet PO 500 mg DAILY DAKOTAH Administration Olmesartan 40 mg 10/09/20 09:00 10/12/20 08:47 Olmesartan Medoxomil 20 Mg Tablet PO 40 mg DAILY DAKOTAH Administration Oxaprozin 600 mg 10/08/20 17:00 10/12/20 08:44 Oxaprozin 600 Mg Tablet PO 600 mg BID DAKOTAH Administration Oxybutynin Chloride 15 mg 10/09/20 09:00 10/12/20 08:45 Oxybutynin Chloride Xl 5 Mg Tab.Er.24 PO 15 mg DAILY DAKOTAH Administration Oxycodone/Acetaminophen 1 tablet 10/08/20 14:52 Oxycodone/Acetaminophen (*Crx) 5-325 Mg Tablet PO Q4-6H PRN Pain Rated 4-6 Oxycodone/Acetaminophen 1 tablet 10/12/20 09:34 Oxycodone/Acetaminophen (*Crx) 5-325 Mg Tablet PO Q4H PRN Pain Rated 7-10 Polyethylene Glycol 17 gm 10/11/20 09:00 10/12/20 08:46 Polyethylene Glycol 3350 17 Gm Powd.Pack PO 17 gm QAM DAKOTAH Administration Progress Note: A&P Assessment and Plan (1) Closed extra-articular fracture of distal end of right radius: Code(s): S52.551A - Other extraarticular fracture of lower end of right radius, initial encounter for closed fracture Status: Acute (2) Closed fracture of right distal radius: Qualifiers: Encounter type: initial encounter Code(s): S52.501A - Unspecified fracture of the lower end of right radius, initial encounter for closed fracture Status: Acute (3) Charcot
--- NOTE | 2020-10-12 10:41 | PC.NURSE ---
called Dr. Bernard office they will be coming up to the floor to see pt on 10/13
[2020-10-12 14:00] VITALS: BP 111/88; PULSE 84; RESP 16; TEMP 36; O2SAT 98
[2020-10-12] MEDS: ACETAMINOPHEN 500 MG TABLET 1000 MG PO (16:55)
[2020-10-12 20:00] VITALS: PULSE 70; RESP 16; O2SAT 98
[2020-10-12 21:51] VITALS: BP 117/88; PULSE 70; RESP 16; TEMP 37.3; O2SAT 98
[2020-10-13 06:00] VITALS: BP 117/62; PULSE 69; RESP 16; TEMP 36.2; O2SAT 99
[2020-10-13] MEDS: OXAPROZIN 600 MG TABLET PO ×2 (07:56→16:44)
[2020-10-13] MEDS: OLMESARTAN MEDOXOMIL 20 MG TABLET 40 MG PO (07:56)
[2020-10-13] MEDS: amLODIPine BESYLATE 5 MG TABLET PO (07:56)
[2020-10-13] MEDS: metFORMIN HCL 500 MG TABLET PO (07:57)
[2020-10-13] MEDS: FLUoxetine HCL 20 MG CAPSULE 60 MG PO (07:57)
[2020-10-13] MEDS: ASPIRIN 81 MG ENTERIC TABLET PO ×2 (07:57→16:45)
[2020-10-13] MEDS: polyethylene glycoL 3350 17 GM POWD.PACK PO (07:58)
[2020-10-13] MEDS: ACETAMINOPHEN 500 MG TABLET 1000 MG PO ×2 (08:03→15:44)
[2020-10-13] MEDS: buPROPion HCL XL (24 HR) 150 MG TABCR 300 MG PO (10:14)
[2020-10-13 14:00] VITALS: BP 144/72; PULSE 94; RESP 20; TEMP 36.1; O2SAT 95
--- NOTE | 2020-10-13 14:19 | WPDNEURORHBP ---
Subjective Date/time seen: 10/13/20 14:19 Patient was seen during morning rounds. Patient attended team conference Review of Systems Review of Systems: Narrative: Essentially unremarkable review of systems except for right wrist pain. I question patient not to be bearing weight through the right wrist and on the elbow only. Functional Status Ambulation Ability Ability to Ambulate 10 Feet: Contact Guard Ambulation Assistive Devices: Walker, Platform Transfers Ability Ability to Transfer In/Out of Chair: Contact Guard Exam Narrative: Exam Narrative: Patient is in no acute distress head is normocephalic heart rate and rhythm is regular lungs are clear to auscultation abdomen is soft nontender. Objective Data Vital Signs Vital Signs: Vital Signs - 24 hr 10/12/20 20:00 10/12/20 21:51 10/13/20 06:00 Temperature 37.3 C 36.2 C L Pulse Rate 70 70 69 Respiratory Rate 16 16 16 Blood Pressure 117/88 117/62 Pulse Oximetry 98 98 99 10/13/20 14:00 Temperature 36.1 C L Pulse Rate 94 Respiratory Rate 20 Blood Pressure 144/72 H Pulse Oximetry 95 Intake/Output Intake/Output: Intake & Output 10/10/20 10/11/20 10/12/20 10/13/20 22:59 23:59 23:59 23:59 Intake Total 1440 600 Balance 1440 600 Meds/Results Medications: Active Medications Generic Name Dose Route Start Last Admin Trade Name Freq PRN Reason Stop Dose Admin Acetaminophen 1,000 mg 10/12/20 09:33 10/13/20 08:03 Acetaminophen 500 Mg Tablet PO 1,000 mg Q4H PRN Administration Mild Pain (1-3) or Fever Amlodipine Besylate 5 mg 10/09/20 09:00 10/13/20 07:56 Amlodipine Besylate 5 Mg Tablet PO 5 mg DAILY DAKOTAH Administration Aspirin 81 mg 10/08/20 17:00 10/13/20 07:57 Aspirin 81 Mg Enteric Tablet PO 81 mg BID DAKOTAH Administration Bupropion HCl 300 mg 10/09/20 09:00 10/13/20 10:14 Bupropion Hcl Xl (24 Hr) 150 Mg Tabcr PO 300 mg QAM DAKOTAH Administration Calcium Carbonate 1,000 mg 10/09/20 09:00 10/13/20 07:56 Calcium/Vitamin D 500 Mg Tablet PO 1,000 mg DAILY DAKOTAH Administration Fluoxetine HCl 60 mg 10/09/20 09:00 10/13/20 07:57 Fluoxetine Hcl 20 Mg Capsule PO 60 mg DAILY DAKOTAH Administration Hydrocortisone 1 applic 10/11/20 09:54 Hydrocortisone (Proctozone-Hc) 2.5% Cream 30 Gm Tube RECTAL Q12HR PRN Hemorrhoids Metformin HCl 500 mg 10/09/20 09:00 10/13/20 07:57 Metformin Hcl 500 Mg Tablet PO 500 mg DAILY DAKOTAH Administration Olmesartan 40 mg 10/09/20 09:00 10/13/20 07:56 Olmesartan Medoxomil 20 Mg Tablet PO 40 mg DAILY DAKOTAH Administration Oxaprozin 600 mg 10/08/20 17:00 10/13/20 07:56 Oxaprozin 600 Mg Tablet PO 600 mg BID DAKOTAH Administration Oxybutynin Chloride 15 mg 10/09/20 09:00 10/13/20 07:57 Oxybutynin Chloride Xl 5 Mg Tab.Er.24 PO 15 mg DAILY DAKOTAH Administration Oxycodone/Acetaminophen 1 tablet 10/08/20 14:52 Oxycodone/Acetaminophen (*Crx) 5-325 Mg Tablet PO Q4-6H PRN Pain Rated 4-6 Oxycodone/Acetaminophen 1 tablet 10/12/20 09:34 10/12/20 08:39 Oxycodone/Acetaminophen (*Crx) 5-325 Mg Tablet PO 1 tablet Q4H PRN Administration Pain Rated 7-10 Polyethylene Glycol 17 gm 10/11/20 09:00 10/13/20 07:58 Polyethylene Glycol 3350 17 Gm Powd.Pack PO 17 gm QAM DAKOTAH Administration Progress Note: A&P Assessment and Plan (1) Closed extra-articular fracture of distal end of right radius: Code(s): S52.551A - Other extraarticular fracture of lower end of right radius, initial encounter for closed fracture Status: Acute (2) Closed fracture of right distal radius: Qualifiers: Encounter type: initial encounter Code(s): S52.501A - Unspecified fracture of the lower end of right radius, initial encounter for closed fracture Status: Acute (3) Charcot ankle: Qualifiers: Laterality: left Qualified Code(s): M14.672 - Charcot's joint, left ank
[2020-10-13 20:30] VITALS: PULSE 71; RESP 16; O2SAT 97
[2020-10-13 22:00] VITALS: BP 132/67; PULSE 71; RESP 16; TEMP 36.2; O2SAT 97
[2020-10-13] MEDS: CALCIUM CARBONATE (TUMS) 500 MG (200 MG ELEMENTAL) PO (22:10)
[2020-10-14 05:59] VITALS: BP 132/78; PULSE 65; RESP 16; TEMP 36.3; O2SAT 98
[2020-10-14 08:00] VITALS: PULSE 65; RESP 16; O2SAT 98
--- NOTE | 2020-10-14 09:13 | PCPTNOTE ---
Cherry Mendoza PT completed an inpatient rehab wheelchair evaluation on Deya Saha on 10/14/2020. The patient is unable to safely and independently ambulate household distances due to their current impairments. Their diagnosis is Rt upper extremity fx, s/p surgery,L ankle surgery and their impairments include decreased strength, decreased endurance, decreased range of motion, decreased balance, and impaired strength. Ms. Saha's weight bearing status is right upper extremity and left lower extremity non-weightbearing at this time. The patient demonstrates significant functional mobility limitations that impair their ability to participate in mobility-related activities of daily living (MRADLs), including toileting, feeding, dressing, grooming, and bathing in the customary locations in the home. These limitations cannot be sufficiently resolved by the use of an appropriately fitted cane or walker. It is recommended that the patient utilize a wheelchair for functional mobility within the home in order to facilitate optimal safety, independence and participation in all MRADL's and adequately access their home environment on a regular basis. The patient's home provides adequate access between rooms, maneuvering space, and surfaces to accommodate the recommended wheelchair. The use of a wheelchair for functional mobility is strongly recommended and the patient is receptive to using the wheelchair. The use of this wheelchair will significantly improve the patient's ability to participate in MRADLS and the patient will use it on a regular basis in the home. This will facilitate optimal safety, independence, and participation. The patient has demonstrated sufficient physical and mental capabilities needed to safely propel a manual wheelchair that is provided in the home during a typical day. Recommended Wheelchair Frame: Extra Heavy Duty (patient's current weight 325.8lbs, height 5'11 , anatomical hip width 22 ) Recommended Wheelchair Size: 24 x 20 Recommended Wheelchair Cushion:Standard Wheelchair Leg Recommendations: Bilateral elevating leg rests -An extra heavy duty wheelchair is recommended because the patient weighs more than 300 pounds. Their height is 5 feet 11 inches and their weight is 325.8 pounds. -Elevating legrests are recommended because the patient has a musculoskeletal condition or the presence of a lower extremity brace. Elevating legrests are recommended because the patient has significant edema of the lower extremities that requires an elevating legrest. - Anti-tippers are recommended due to patient demonstrating increased risk for falls. They would benefit from anti-tippers with added safety and stabilization. -(KEEP OR DELETE) Adjustable arm height is recommended because the patient requires an arm height that is different than that which is available using non-adjustable arms. The patient spends at least 2 hours per day in the wheelchair. Cherry Mendoza PT, JUNET ____10/14/20 Evaluating Therapist Date I agree with and certify that the above recommendation is medically necessary. Referring Physician Date
[2020-10-14] MEDS: FLUoxetine HCL 20 MG CAPSULE 60 MG PO (09:23)
[2020-10-14] MEDS: amLODIPine BESYLATE 5 MG TABLET PO (09:24)
[2020-10-14] MEDS: metFORMIN HCL 500 MG TABLET PO (09:24)
[2020-10-14] MEDS: buPROPion HCL XL (24 HR) 150 MG TABCR 300 MG PO (09:24)
[2020-10-14] MEDS: OLMESARTAN MEDOXOMIL 20 MG TABLET 40 MG PO (09:24)
[2020-10-14] MEDS: polyethylene glycoL 3350 17 GM POWD.PACK PO (09:25)
[2020-10-14] MEDS: OXAPROZIN 600 MG TABLET PO ×2 (09:25→17:56)
--- NOTE | 2020-10-14 10:32 | WPDNEURORHBP ---
Subjective Date/time seen: 10/14/20 10:32 Patient voices no complaints. The patient is disappointed that weight-bearing status was not increased but completely understands the need to maintain nonweightbearing for the next 2 weeks. Patient was instructed by the septic technician to begin ankle range of motion. Review of Systems Review of Systems: All systems reviewed & are unremarkable except as noted in HPI and below Functional Status Ambulation Ability Ability to Ambulate 10 Feet: Contact Guard Ambulation Assistive Devices: Walker, Platform Transfers Ability Ability to Transfer In/Out of Chair: Contact Guard Exam Narrative: Exam Narrative: Head is normocephalic. Extraocular muscles are intact. Neck is supple. Speech is fluent. Cognition is intact. Heart rhythm is regular without murmur. Lungs are clear to auscultation. Abdomen is obese positive bowel sounds Right upper extremity is in a long-arm cast. Left upper extremity strength is 4-5 left lower extremity is in a walking boot but is still nonweightbearing. Right lower extremity strength is 4-5. Objective Data Vital Signs Vital Signs: Vital Signs - 24 hr 10/13/20 14:00 10/13/20 20:30 10/13/20 22:00 Temperature 36.1 C L 36.2 C L Pulse Rate 94 71 71 Respiratory Rate 20 16 16 Blood Pressure 144/72 H 132/67 Pulse Oximetry 95 97 97 10/14/20 05:59 Temperature 36.3 C L Pulse Rate 65 Respiratory Rate 16 Blood Pressure 132/78 Pulse Oximetry 98 Intake/Output Intake/Output: Intake & Output 10/11/20 10/12/20 10/13/20 10/14/20 23:59 23:59 23:59 23:59 Intake Total 1440 1080 360 Balance 1440 1080 360 Meds/Results Medications: Active Medications Generic Name Dose Route Start Last Admin Trade Name Freq PRN Reason Stop Dose Admin Acetaminophen 1,000 mg 10/12/20 09:33 10/13/20 15:44 Acetaminophen 500 Mg Tablet PO 1,000 mg Q4H PRN Administration Mild Pain (1-3) or Fever Amlodipine Besylate 5 mg 10/09/20 09:00 10/14/20 09:24 Amlodipine Besylate 5 Mg Tablet PO 5 mg DAILY DAKOTAH Administration Aspirin 81 mg 10/08/20 17:00 10/13/20 16:45 Aspirin 81 Mg Enteric Tablet PO 81 mg BID DAKOTAH Administration Bupropion HCl 300 mg 10/09/20 09:00 10/14/20 09:24 Bupropion Hcl Xl (24 Hr) 150 Mg Tabcr PO 300 mg QAM DAKOTAH Administration Calcium Carbonate 1,000 mg 10/09/20 09:00 10/14/20 09:23 Calcium/Vitamin D 500 Mg Tablet PO 1,000 mg DAILY DAKOTAH Administration Calcium Carbonate 200 mg 10/13/20 21:00 10/13/20 22:10 Calcium Carbonate (Tums) 500 Mg (200 Mg Elemental) PO 200 mg Q6H PRN Administration Indigestion Fluoxetine HCl 60 mg 10/09/20 09:00 10/14/20 09:23 Fluoxetine Hcl 20 Mg Capsule PO 60 mg DAILY [facility] Administration Hydrocortisone 1 applic 10/11/20 09:54 Hydrocortisone (Proctozone-Hc) 2.5% Cream 30 Gm Tube RECTAL Q12HR PRN Hemorrhoids Metformin HCl 500 mg 10/09/20 09:00 10/14/20 09:24 Metformin Hcl 500 Mg Tablet PO 500 mg DAILY DAKOTAH Administration Olmesartan 40 mg 10/09/20 09:00 10/14/20 09:24 Olmesartan Medoxomil 20 Mg Tablet PO 40 mg DAILY DAKOTAH Administration Oxaprozin 600 mg 10/08/20 17:00 10/14/20 09:25 Oxaprozin 600 Mg Tablet PO 600 mg BID [facility] Administration Oxybutynin Chloride 15 mg 10/09/20 09:00 10/14/20 09:24 Oxybutynin Chloride Xl 5 Mg Tab.Er.24 PO 15 mg DAILY DAKOTAH Administration Oxycodone/Acetaminophen 1 tablet 10/08/20 14:52 Oxycodone/Acetaminophen (*Crx) 5-325 Mg Tablet PO Q4-6H PRN Pain Rated 4-6 Oxycodone/Acetaminophen 1 tablet 10/12/20 09:34 10/12/20 08:39 Oxycodone/Acetaminophen (*Crx) 5-325 Mg Tablet PO 1 tablet Q4H PRN Administration Pain Rated 7-10 Polyethylene Glycol 17 gm 10/11/20 09:00 10/14/20 09:25 Polyethylene Glycol 3350 17 Gm Powd.Pack PO 17 gm QAM DAKOTAH Administration Radiology Results: ITS Impressions Foot X-Ray 10/13/20 15:12 IMPRESSION:
--- NOTE | 2020-10-14 10:39 | PM.PNORT ---
Progress Note: A&P Assessment and Plan (1) Closed extra-articular fracture of distal end of right radius: Code(s): S52.551A - Other extraarticular fracture of lower end of right radius, initial encounter for closed fracture Status: Acute Assessment and Plan: Postop day 9 ORIF distal radius fracture Patient is progressing well. Her pain is controlled with oral Tylenol. Full range of motion in her fingers and had intact light touch sensation. Due to instability of the distal radial ulnar joint we will continue splint until for 4 weeks postoperatively. New appointment made and patient notified. She will need an xray at her next appointment and we will likely put her in a removable brace at that time. Patient is in a difficult situation with her non weight-bearing status due to the recent left ankle surgery. She continues to be non weight-bearing on her left foot for two more weeks and is wearing a boot. History of HERLINDA in right hip. Patient is at risk for another fall, or placing too much weight on either extremity. She may benefit from a platform walker when ambulating. Patient lives in her home alone. She will continue fis-pbalnu-ttoangs on right arm. She may lift no more than 2 pounds. She may use arm to move walker. Subjective Subjective Date/Time Seen: 10/14/20 10:39 Visit with patient and [facility] while patient was in physical therapy. Patient states she is doing well. He pain is controlled with Tylenol. Pain rated at a 2/10. No numbness or tingling in her fingers. Patient states she is still nonweightbearing on her left foot. She is currently in a boot. Patient states she would like to go back to work at 8 weeks. Review of Systems Review of Systems: All systems reviewed & are unremarkable except as noted in HPI and below Exam Extrem: Other: Obese 55-year-old female. Alert and oriented x3. No acute distress. Ambulating using a wheelchair. Intact sugar-tong, supination splint on right arm. Patient is able to move her fingers. Light touch sensation intact. Intact capillary refill. Wearing a boot on the left foot. Objective Data Vital Signs Vital Signs: Vital Signs - 24 hr 10/13/20 14:00 10/13/20 20:30 10/13/20 22:00 Temperature 97 F L 97.1 F L Pulse Rate 94 71 71 Respiratory Rate 20 16 16 Blood Pressure 144/72 H 132/67 Pulse Oximetry 95 97 97 10/14/20 05:59 Temperature 97.4 F L Pulse Rate 65 Respiratory Rate 16 Blood Pressure 132/78 Pulse Oximetry 98 Intake/Output Intake/Output: Intake & Output 10/11/20 10/12/20 10/13/20 10/14/20 23:59 23:59 23:59 23:59 Intake Total 1440 1080 360 Balance 1440 1080 360 Meds/Results Medications: Active Medications Generic Name Dose Route Start Last Admin Trade Name Freq PRN Reason Stop Dose Admin Acetaminophen 1,000 mg 10/12/20 09:33 10/13/20 15:44 Acetaminophen 500 Mg Tablet PO 1,000 mg Q4H PRN Administration Mild Pain (1-3) or Fever Amlodipine Besylate 5 mg 10/09/20 09:00 10/14/20 09:24 Amlodipine Besylate 5 Mg Tablet PO 5 mg DAILY DAKOTAH Administration Aspirin 81 mg 10/08/20 17:00 10/13/20 16:45 Aspirin 81 Mg Enteric Tablet PO 81 mg BID DAKOTAH Administration Bupropion HCl 300 mg 10/09/20 09:00 10/14/20 09:24 Bupropion Hcl Xl (24 Hr) 150 Mg Tabcr PO 300 mg QAM DAKOTAH Administration Calcium Carbonate 1,000 mg 10/09/20 09:00 10/14/20 09:23 Calcium/Vitamin D 500 Mg Tablet PO 1,000 mg DAILY DAKOTAH Administration Calcium Carbonate 200 mg 10/13/20 21:00 10/13/20 22:10 Calcium Carbonate (Tums) 500 Mg (200 Mg Elemental) PO 200 mg Q6H PRN Administration Indigestion Fluoxetine HCl 60 mg 10/09/20 09:00 10/14/20 09:23 Fluoxetine Hcl 20 Mg Capsule PO 60 mg DAILY DAKOTAH Administration Hydrocortisone 1 applic 10/11/20 09:54 Hydrocortisone (Proctozone-Hc) 2.5% Cream 30 Gm Tube RECTAL Q12HR PRN Hemorrhoids Metformin HCl 500 mg 10/09/20 09:00 0
[2020-10-14] MEDS: ASPIRIN 81 MG ENTERIC TABLET PO ×2 (10:56→17:56)
[2020-10-14] MEDS: CALCIUM CARBONATE (TUMS) 500 MG (200 MG ELEMENTAL) PO (10:56)
[2020-10-14 14:00] VITALS: BP 127/65; PULSE 89; RESP 18; TEMP 36.1; O2SAT 94
[2020-10-14 14:37] VITALS: TEMP 36.1
[2020-10-14] MEDS: ACETAMINOPHEN 500 MG TABLET 1000 MG PO (14:37)
[2020-10-14 20:34] VITALS: BP 109/64; PULSE 72; RESP 22; TEMP 36.1; O2SAT 96
[2020-10-15 05:21] VITALS: BP 114/55; PULSE 74; RESP 22; TEMP 35.9; O2SAT 100
[2020-10-15] MEDS: FLUoxetine HCL 20 MG CAPSULE 60 MG PO (09:33)
[2020-10-15] MEDS: buPROPion HCL XL (24 HR) 150 MG TABCR 300 MG PO (09:34)
[2020-10-15] MEDS: metFORMIN HCL 500 MG TABLET PO (09:34)
[2020-10-15] MEDS: ASPIRIN 81 MG ENTERIC TABLET PO (09:34)
[2020-10-15] MEDS: OXAPROZIN 600 MG TABLET PO (09:34)
[2020-10-15] MEDS: amLODIPine BESYLATE 5 MG TABLET PO (09:34)
[2020-10-15] MEDS: OLMESARTAN MEDOXOMIL 20 MG TABLET 40 MG PO (09:34)
[2020-10-15] MEDS: ACETAMINOPHEN 500 MG TABLET 1000 MG PO (09:36)
--- NOTE | 2020-10-15 11:07 | PM.DS ---
DS: Admitting Diagnosis Admitting Diagnosis Admitting Diagnosis: Multiple fractures. LJ PHILLIP DS: Discharge Diagnosis Discharge Diagnosis (1) Closed extra-articular fracture of distal end of right radius: Code(s): S52.551A - Other extraarticular fracture of lower end of right radius, initial encounter for closed fracture Status: Acute (2) Closed fracture of right distal radius: Qualifiers: Encounter type: initial encounter Code(s): S52.501A - Unspecified fracture of the lower end of right radius, initial encounter for closed fracture Status: Acute (3) Charcot ankle: Qualifiers: Laterality: left Qualified Code(s): M14.672 - Charcot's joint, left ankle and foot Code(s): M14.679 - Charcot's joint, unspecified ankle and foot Status: Acute (4) Gastro-esophageal reflux disease without esophagitis: Code(s): K21.9 - Gastro-esophageal reflux disease without esophagitis Status: Acute (5) Anxiety: Code(s): F41.9 - Anxiety disorder, unspecified Status: Acute (6) Diabetes: Code(s): E11.9 - Type 2 diabetes mellitus without complications Status: Acute (7) Bursitis of intermetatarsal bursa of left foot: Code(s): M77.52 - Other enthesopathy of left foot and ankle Status: Acute (8) Foot drop, left: Code(s): M21.372 - Foot drop, left foot Status: Acute (9) Calcaneal spur: Qualifiers: Laterality: right Qualified Code(s): M77.31 - Calcaneal spur, right foot Code(s): M77.30 - Calcaneal spur, unspecified foot Status: Acute (10) Morbid obesity: Code(s): E66.01 - Morbid (severe) obesity due to excess calories Status: Acute (11) Essential (primary) hypertension: Code(s): I10 - Essential (primary) hypertension Status: Acute (12) Major depressive disorder, single episode, unspecified: Qualifiers: Active/Remission status: currently active Major depression episode severity: moderate Qualified Code(s): F32.1 - Major depressive disorder, single episode, moderate Code(s): F32.9 - Major depressive disorder, single episode, unspecified Status: Acute (13) Metabolic syndrome: Code(s): E88.81 - Metabolic syndrome Status: Acute (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, not intractable: Code(s): G43.B0 - Ophthalmoplegic migraine, not intractable Status: Acute (15) Other and unspecified hyperlipidemia: Code(s): E78.5 - Hyperlipidemia, unspecified Status: Acute (16) Tension-type headache, unspecified, intractable: Code(s): G44.201 - Tension-type headache, unspecified, intractable Status: Acute (17) Urge incontinence: Code(s): N39.41 - Urge incontinence Status: Acute (18) Prepatellar bursitis: Qualifiers: Laterality: left Qualified Code(s): M70.42 - Prepatellar bursitis, left knee Code(s): M70.40 - Prepatellar bursitis, unspecified knee Status: Acute DS: Summary Hospital Course Hospital Course: 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 Patient underwent ORIF of the right distal radial fracture by Dr. Oliva xiong on 10/05/2020. Patient is to maintain nonweightbearing but can put weight through the right elbow. Prior to the fall patient had just undergone on September 11, 2020 a left ankle arthrodesis. Patient is nonweightbearing through the left lower extremity per Podiatry Patient was admitted to the [facility] on October 08 and will be discharged on 10/15/2020. Patient is stable. Pain is under control. Patient received extensive physical therapy and occupational therapy. Please see functional graph for further details.ADMISSION FUNCTION: Eating Substantial assist Oral Care substantial assist Toileting Hygiene substantial assistance Shower/Bathing substantial assistance Upper Body Dressing setup Lower Body Dressing
--- NOTE | 2020-10-15 14:07 | PC.NURSE ---
went to go over discharge paperwork with patient. Patient stated she was to get a script for pain medication at discharge. Nursing staff looked through patient chart and no script found. Patient looked through paperwork in room and no script found there either. Yury with Dr Hilario's office called and message left. Call placed to Dr Hilario's office and both Dr Hilario and Yury are in with patients. Nursing awaiting call back from the office. Nursing staff has updated patient that we are awaiting a call back . Patient stated she has waited 30 minutes. Patient stated she would just call their office if anything was needed.
== END 2020-10-15 14:10 | disposition home health service (06) | DRG 560 ==
PROVIDERS: Admitting Provider Physical Medicine & Rehabilitation; PCP Family Medicine; Visit Provider Physical Medicine & Rehabilitation
DX: S52.551D Other extraarticular fracture of lower end of right radius, subsequent encounter for closed fracture with routine healing (principal); Z68.42 Body mass index [BMI] 45.0-49.9, adult; V00.141D Fall from scooter (nonmotorized), subsequent encounter; E88.81 Metabolic syndrome and other insulin resistance; E66.01 Morbid (severe) obesity due to excess calories; E11.9 Type 2 diabetes mellitus without complications; E78.5 Hyperlipidemia, unspecified; F41.8 Other specified anxiety disorders; I10 Essential (primary) hypertension; K21.9 Gastro-esophageal reflux disease without esophagitis; M77.31 Calcaneal spur, right foot; M15.9 Polyosteoarthritis, unspecified; M14.672 Charcot's joint, left ankle and foot; M70.40 Prepatellar bursitis, unspecified knee; Z79.84 Long term (current) use of oral hypoglycemic drugs; Z98.1 Arthrodesis status; Z96.641 Presence of right artificial hip joint
CPT/HCPCS: 36415; 73630; 80048; 85025; 97110; 97116; 97161; 97165; 97530; 97535; 97542; A9270

== ENCOUNTER 2020-10-27 11:50 | Outpatient (CLI) | payer OTHER, SELFPAY ==
--- NOTE | ~2020-10-27 | XR_ITS ---
EXAMINATION: XR foot LT min 3V EXAM DATE: 10/27/2020 12:18 INDICATION: Left foot triple arthrodesis. TECHNIQUE: Left foot dorsoplantar, lateral and oblique projections obtained and reviewed. Images obt ained standing. Comparison is made to prior examination from 10/13/2020. FINDINGS: There is fusion hardware bridging the left 1st tarsometatarsal joint, the calcaneocuboid j oint, the navicular talar joint and the subtalar joint. No hardware fracture or lucency surrounding a ny of the hardware. There are no bony erosions identified. Mild polyarticular osteoarthritis. Smal l calcaneal spurs. There are no acute fractures identified. There is no significant interval change . IMPRESSION: 1. Intact left foot fusions. 2. Mild degenerative changes. Reviewed, dictated and finalized at location A.
== END 2020-10-27 11:51 | disposition home or self-care (01) ==
PROVIDERS: PCP Family Medicine; Visit Provider Podiatrist Foot & Ankle Surgery
DX: M24.475 Recurrent dislocation, left foot (principal)
CPT/HCPCS: 73630

== ENCOUNTER 2021-05-14 12:12 | Outpatient (CLI) | payer OTHER, SELFPAY ==
--- NOTE | ~2021-05-14 | CT_ITS ---
EXAMINATION: CT ankle LT wo con, CT foot LT wo con DATE: 05/14/2021 12:49 INDICATION: Postural lordosis. Left foot triple arthrodesis. TECHNIQUE: High resolution computed tomography (CT) of the left foot and ankle was performed without intravenous contrast. Additional sagittal and coronal reconstructions were performed. Automated expos ure control and iterative reconstruction technique were employed. The dose-length product was 242.19 mGy-cm. COMPARISON: Radiographs dated 10/27/2020 FINDINGS: Postoperative changes of prior hindfoot arthrodesis with cannulated compression screws spanning the s ubtalar joint, a pair of lateral sided staple spanning the calcaneocuboid joint and cannulated lag sc rew and pair of dorsal/medial sided staple spanning the talonavicular joint. There is also been a fir st tarsal metatarsal arthrodesis with dorsal plate and screw fixation with osseous fusion across a si gnificant portion of the joint space. There is no evident osseous bridging across the subtalar joint. There are few tiny foci of spot weld type bridging across the talonavicular and calcaneocuboid joint s the majority of which remain unfused. No instrumentation failure or surrounding lucency to suggest loosening or infection. Alignment of the left foot and ankle is normal. No fracture. Chronic osteotomy at the head of the fou rth proximal phalanx. Small enthesophytes at both sides of the articulation between the navicula and the medial and lateral cuneiforms. As well as at the plantar aspect of the base of the third proximal phalanx. Moderate osteoarthritis at the second and third tarsal metatarsal joints. Mild osteoarthrit is at the fourth and fifth tarsal metatarsal joints, the left ankle joint, the first metatarsophalang eal and several interphalangeal joints. There is fusiform thickening and central decreased attenuation of the Achilles tendon consistent with tendinopathy and potentially partial thickness tear. There are several small enthesopathic ossicles at the distal Achilles tendon. Additional tendinopathy with fusiform thickening of the peroneus longu s and brevis tendons centered at the level of the retromalleolar groove. Moderate-sized plantar calca shandra spur. No joint effusions or other abnormal fluid collections. IMPRESSION: 1. Instrumented arthrodesis with significant partial fusion across the first tarsal metatarsal joint. 2. Instrumented left hindfoot triple arthrodesis with very early beginning fusion across the talonavi cular and calcaneocuboid joints and without discernible fusion at the subtalar joint. 3. Achilles tendinopathy with possible intrasubstance partial tear. 4. Peroneus longus and brevis tendinopathy. 5. Mild to moderate polyarticular osteoarthritis at the left foot and ankle. Reviewed, dictated and finalized at location A. IMPRESSION: 1. Instrumented arthrodesis with significant partial fusion across the first ta rsal metatarsal joint. 2. Instrumented left hindfoot triple arthrodesis with very early beginning fusi on across the talonavicular and calcaneocuboid joints and without discernible f usion at the subtalar joint. 3. Achilles tendinopathy with possible intrasubstance partial tear. 4. Peroneus longus and brevis tendinopathy. 5. Mild to moderate polyarticular osteoarthritis at the left foot and ankle.
== END 2021-05-14 12:13 | disposition home or self-care (01) ==
LOC: ANHIMG 12:16
PROVIDERS: PCP Family Medicine; Visit Provider Physical Medicine & Rehabilitation Pain Medicine
DX: Z01.818 Encounter for other preprocedural examination (principal); M40.40 Postural lordosis, site unspecified; Z98.1 Arthrodesis status; M19.072 Primary osteoarthritis, left ankle and foot
CPT/HCPCS: 73700

== ENCOUNTER 2021-12-07 11:15 | Outpatient (RCR) | payer OTHER, SELFPAY ==
--- NOTE | 2021-11-10 08:43 | PTOPEVAL ---
PHYSICAL THERAPY INITIAL EVALUATION. Thank you for referring Deya Saha to [facility].? The patient is scheduled to be seen for therapy?2 x/week for 4 weeks. Please review, sign, date and return this plan of care DAMION. I agree with and certify that the following plan of care is medically necessary. Referring Physician Date Attending Provider: Tadeo Moseley JR, MD *PT Outpatient Evaluation Start: 11/09/21 Evaluation Information Diagnosis s/p flat foot deformity reconstruction Subjective Information Pt states she is an over Query Text:As Reported By Patient/ pronator and had surgery to Family correct this in Aug. Three weeks after her surgery, she fell off her knee scooter and had to have an ORIF which caused her to go to rehab to learn how to take care of herself. She states she is still having ankle pain that is only slightly helped with compression socks. 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 Pt states she had an X-ray 3 weeks ago an it showed 70% fusion, upon heeling ankle joint should be completely fused. Her primary complaint is the pain in her ankle which is worse in the morning. Self Report Pain Assessment Left Ankle(s) Reported Pain Level 1 Lowest Pain Intensity 0 Greatest Pain Intensity 8 Pain Aggravating Factors Prolonged Position,Walking Lower Extremity Range of Motion Ankle/Foot Range of Motion Left Ankle Dorsiflexion With Knee Extension -14 active Ankle Dorsiflexion With Knee Extension 0 passive Ankle Dorsiflexion With Knee Flexed -2 active Ankle Plantarflexion Range of Motion - 35 active Ankle Plantarflexion Range of Motion - 34 passive Ankle Range of Motion Comments R ankle dorsiflexion with knee bent 0-32 R ankle plantarflexion with knee bent 0-63 R ankle dorsiflexion 0-25 R ankle plantarflexion 0-54 Lower Extremity Muscle Strength Testing Gross Lower Extremity Strength unable to perform single leg heel raise on L unable to maintain single leg
--- NOTE | 2021-12-10 08:42 | PCPTNOTE ---
Attending Provider: Tadeo Moseley JR, MD Patient:Deya Saha Date of :1965 Patient called and cancelled her re-evaluation this morning. She was unable to reschedule prior to her follow up with her doctor. She states she would like to be discharged at this time and she will get new orders if she needs to come back. Patient?s initial visit was on 11/09/2021 and she had a total of 8 visits. The goals have been partially met. Thank you for referring this patient to [facility]. Please review, sign, date and return this discharge summary DAMION. I have been updated about the patient's current status and I agree with discharge from the above service at this time. Referring Physician Date
== END 2021-12-13 11:10 | disposition home or self-care (01) ==
LOC: ANHPT 11:15
PROVIDERS: PCP Family Medicine; Visit Provider Podiatrist Foot & Ankle Surgery
DX: Z47.89 Encounter for other orthopedic aftercare (principal); S52.551D Other extraarticular fracture of lower end of right radius, subsequent encounter for closed fracture with routine healing; S52.501D Unspecified fracture of the lower end of right radius, subsequent encounter for closed fracture with routine healing
CPT/HCPCS: 97022; 97033; 97035; 97110; 97112; 97140; 97161

== ENCOUNTER 2022-05-01 07:16 | Outpatient (CLI) | payer OTHER, SELFPAY ==
[2022-05-01 08:14] LABS: Alanine Aminotransferase 30 U/L (6-35); Albumin Level 4.6 g/dL (3.5-5.1); Alkaline Phosphatase 81 U/L (38-126); Anion Gap 10 mmol/L (8-16); Aspartate Amino Transferase 40 U/L (14-36); Bilirubin,Total 0.5 mg/dL (0.2-1.3); Blood Urea Nitrogen 17 mg/dL (7-17); Calcium 9.3 mg/dL (8.4-10.2); Carbon Dioxide 25 mmol/L (22-30); Chloride 105 mmol/L (98-107); Estimated Glomerular Filt Rate 58; Glucose 93 mg/dL (65-110); Potassium 4.8 mmol/L (3.4-5.0); Sodium 140 mmol/L (137-145)
[2022-05-01 09:00] LABS: Hemoglobin A1C 4.9 % (<5.7)
== END 2022-05-01 07:17 | disposition home or self-care (01) ==
LOC: ANHOBOP 07:18
PROVIDERS: PCP Family Medicine; Visit Provider Family Medicine
DX: E11.9 Type 2 diabetes mellitus without complications (principal)
CPT/HCPCS: 36415; 80053; 83036

== ENCOUNTER 2022-07-26 12:13 | Outpatient (CLI) | payer OTHER, SELFPAY ==
--- NOTE | 2022-07-26 12:28 | ECG_ITS ---
Measurements Intervals [place] Rate: 63 P: 1 VA: 160 QRS: -1 QRSD: 93 T: 26 QT: 386 QTc: 395 Interpretive Statements SINUS RHYTHM WITH SINUS ARRHYTHMIA BASELINE ARTIFACT LOW QRS VOLTAGE IN PRECORDIAL LEADS [QRS DEFLECTION < 1.0 mV IN CHEST LEADS] PATTERN CONSISTENT WITH PULMONARY DISEASE BORDERLINE ECG COMPARED TO ECG 01/08/2020 10:42:51 NO SIGNIFICANT CHANGES Electronically Signed On 07-26-2022 18:01:07 KNIFE OPERATOR by Avery Pelletier M.D.
[2022-07-26 14:11] LABS: Anion Gap 9 mmol/L (8-16); Blood Urea Nitrogen 18 mg/dL (7-17); Calcium 9.3 mg/dL (8.4-10.2); Carbon Dioxide 27 mmol/L (22-30); Chloride 97 mmol/L (98-107); Estimated Glomerular Filt Rate 47; Glucose 87 mg/dL (65-110); Potassium 4.1 mmol/L (3.4-5.0); Sodium 133 mmol/L (137-145)
[2022-07-26 14:12] LABS: Alanine Aminotransferase 25 U/L (6-35); Albumin Level 4.4 g/dL (3.5-5.1); Alkaline Phosphatase 94 U/L (38-126); Aspartate Amino Transferase 36 U/L (14-36); Bilirubin,Total 0.6 mg/dL (0.2-1.3)
[2022-07-26 14:28] LABS: Vitamin D 25 Hydroxy 38.5 ng/mL
[2022-07-26 14:59] LABS: Hepatitis C Virus Antibody Negative (Negative)
== END 2022-07-26 12:14 | disposition home or self-care (01) ==
PROVIDERS: Anesthesiology; PCP Family Medicine; Visit Provider Podiatrist Foot & Ankle Surgery
DX: F43.21 Adjustment disorder with depressed mood (principal); I10 Essential (primary) hypertension; E11.9 Type 2 diabetes mellitus without complications; R94.31 Abnormal electrocardiogram [ECG] [EKG]
CPT/HCPCS: 36415; 80048; 80076; 82306; 86803; 93005

== ENCOUNTER 2022-07-29 02:20 | Day surgery (SDC) | payer OTHER, SELFPAY ==
[2022-07-20 09:24] VITALS: BMI 32.8
--- NOTE | 2022-07-20 09:46 | PC.NURSE ---
Report to the Outpatient Waiting Room, entrance under the green pavilion located off [facility], at time _9:30AM on date __07/29/22 . Planned Procedure Time: __11:30AM . Time changes happen often and if your time is changed the preop area will call you the afternoon before. - You and your visitor will be asked to self-screen and do not enter if you have any COVID symptoms. - Only one visitor is requested with a max of two and NO children visitors are allowed at this time. - The patient visitor may be requested to leave or wait in car when not with patient due to distancing restrictions. - A mask is optional within the hospital. Patients may have clear liquids (water, carbonated beverages, clear teas, apple juice) until 3 hours prior to surgery with a maximum of 20 ounces. - No food from midnight until time of surgery Take the following medications with a SIP of water the morning of surgery: __BUPROPION, FLUOXETINE, OXYCODONE NEEDED Medications to discontinue per physician ____NONE Date to take last dose Please no make-up, nail finnish, hairspray, perfume, deodorant, or body powder the day of surgery. No jewelry (including any body piercings) or valuables the day of surgery, leave them at home. Please take a shower or bath the night before, or the morning of, surgery with an antibacterial soap. Wear comfortable, loose fitting clothing. Children are encouraged to wear pajamas. - Jewelry must be removed prior to entering the operating room. Rings and piercings that are not removed may be cut off. - The hospital will not accept responsibility for valuables. - Please leave all valuables, including medications, at home the day of surgery. If you are going home after surgery, a licensed bobcat driver/labor must drive you home. - NO public transportation without another adult if you receive anesthesia. - We recommend that an adult stay with you for 24 hours following discharge. - We also recommend that you do not drive, make important decision, drink alcoholic beverages, or take any drugs that were not prescribed by your health care provider for at least 24 hours after your discharge time. Follow any additional instructions given to you from your surgeon. If you or anyone in your household have experienced Covid symptoms in the past week, please notify your surgeon or the nurse liaison at the phone number below for possible testing. Telephone instructions given to __PATIENT and asked if any additional questions and then verbalized understanding. Patient advised to call surgeon office or pre surgery nurse liaison [phone] if any additional questions.
--- NOTE | ~2022-07-29 | XR_ITS ---
EXAMINATION: XR surgery orthopedic DATE: 07/29/2022 12:01 INDICATION: Orthopedic instrumentation removal at the left foot TECHNIQUE: 2 fluoroscopic images of the left midfoot were obtained during procedure performed by Dr. Moseley. Radiologist was not present for the imaging or procedure. The amount of fluoroscopy time us ed during this procedure was 0.1 minutes. COMPARISON: CT dated 05/14/2021 FINDINGS: Line there are residual lucent screw tracks along the dorsal cortex of the proximal to mid left first metatarsal and the medial cuneiform at the site of a prior dorsal plate and screw fixation . No residual metallic fragments appreciated. There are residual fixation screws spanning the talonav icular joint and medial and lateral sided staple spanning the talonavicular and calcaneocuboid joints . No fractures identified although sensitivity is low on the provided fluoroscopic images. IMPRESSION: 1. Fluoroscopy utilized during removal of a dorsal plate-screw fixation spanning the first tarsal met atarsal joint. See procedure note for further detail. Reviewed, dictated and finalized at location A. ISENSOR INTELLIGENCE OFFICER IMPRESSION: 1. Fluoroscopy utilized during removal of a dorsal plate-screw fixation spannin g the first tarsal metatarsal joint. See procedure note for further detail.
--- NOTE | 2022-07-29 07:14 | WPDHPUPDATE1 ---
History and Physical Update Update Date/Time: 07/29/22 07:14 History and Physical has been reviewed, including an updated exam of the patient. There are NO changes in the patient's condition. Risks, benefits, and alternatives have been discussed and questions answered. Patient agrees to proceed with procedure.
[2022-07-29] MEDS: LACTATED RINGERS 1,000 ML 30 ML IV CONT (10:20)
--- NOTE | 2022-07-29 10:22 | WPDANESEPPF ---
Anes - Initial Pre Proc Eval Procedure: Operation Date: 07/29/22 11:30 Proposed Procedures p Removal Hardware Left Foot - Tadeo Moseley JR, MD Date/Time: 07/29/22 10:22 Surgeon: Tadeo Moseley JR, MD Pre Op Diagnosis: painful orthopedic hardware left foot Patient Data Age: 57 Gender: F Height: 1.8 m Weight: 107 kg Allergies Allergy/AdvReac Type Severity Reaction Status Date / Time azithromycin Allergy Severe Hives / Verified 07/29/22 10:07 Red Face morphine AdvReac Severe Nausea and Verified 07/29/22 10:07 Vomiting scopolamine AdvReac Severe Blurry Verified 07/29/22 10:07 Vision, EYE PAIN Home Medications Medication Instructions Recorded Confirmed Type bupropion HCl 300 mg 24 hr tablet, 300 mg PO QAM #90 tabs 09/29/21 07/29/22 Rx extended release (Wellbutrin XL) oxycodone-acetaminophen 5 mg-325 1 - 2 tablet PO Q4-6H PRN pain #30 01/25/22 07/29/22 Rx mg tablet tabs tirzepatide 7.5 mg/0.5 mL 7.5 mg (0.5 mL) subcut WEEKLY #6 mL 07/12/22 07/29/22 Rx subcutaneous pen injector (Mounjaro) benzonatate 200 mg capsule 200 mg PO TID PRN cough #30 caps 07/19/22 07/29/22 Rx acetaminophen 500 mg capsule 1,000 mg PO Q6H PRN Pain 07/20/22 07/29/22 History amlodipine 5 mg-olmesartan 40 mg 5 - 40 tablet PO QAM 07/20/22 07/29/22 History tablet (Stephen) fluoxetine 20 mg capsule 60 mg PO QAM 07/20/22 07/29/22 History metformin 500 mg tablet 500 mg PO QAM 07/20/22 07/29/22 History omeprazole 20 mg capsule,delayed 20 mg PO QAM 07/20/22 07/29/22 History release oxaprozin 600 mg tablet 1,200 mg PO QAM 07/20/22 07/29/22 History solifenacin 10 mg tablet (Vesicare) 10 mg PO QAM 07/20/22 07/29/22 History Patient hx anesthesia problems: none Family hx anesthesia problems: none Results Review: All pre-operative results and documents have been reviewed as part of the pre-operative evaluation. [facility] Past Medical History Medical History Anxiety Arthritis Charcot ankle Depression Diabetes Foot drop, left Gastro-esophageal reflux disease without esophagitis Hypertension Morbid obesity Prepatellar bursitis Surgical History Surgical History History of laminectomy (~1990) History of laminectomy (~1996) History of right hip replacement (~2006) Family History Family History Father Heart disease Hypertension Aneurysm Sibling Lung cancer Mother Arthritis Social History Social History Smoking status: Never smoker Alcohol intake: unknown Substance use: never Living arrangements: with family Additional living arrangements comments: ADULT CHILD Gender identity (if verbalized by the patient): Female Spiritual care concerns: No Anes - Eval Final PreProcedure Day of Procedure 07/29/22 10:22 Patient weight: obese Heart: regular rate and rhythm Lungs: clear to auscultation Airway: Mallampati scale class II Neurological: alert and oriented Last oral intake: >/= 8 hours ASA classification: III Emergent: no Anesthetic plan: proceed Anesthesia type and monitoring: general GIVS and standard monitoring Results Review: All pre-operative results and documents have been reviewed as part of the pre-operative evaluation. Informed Consent: The patient's anesthetic plan and its attendant risks and benefits were discussed with the patient/family/POA. Questions were solicited and answers provided to the satisfaction of the patient/family/POA.
[2022-07-29 10:26] VITALS: BP 130/85; PULSE 71; RESP 16; TEMP 36.3; O2SAT 99
[2022-07-29 10:27] LABS: Glucose Point of Care 99 mg/dl (65-105)
[2022-07-29] MEDS: ceFAZolin 2 GM/D5W 50 ML 2 GM/50 ML BAG IVPB (11:20)
[2022-07-29] MEDS: BUPIVACAINE HCL 0.5% PF 30 ML VIAL 20 ML INFILTRATE (11:46)
[2022-07-29 12:06] VITALS: BP 120/67; PULSE 69; RESP 16; O2SAT 93
[2022-07-29 12:14] LABS: Glucose Point of Care 86 mg/dl (65-105)
--- NOTE | 2022-07-29 12:33 | P.OP_ITS ---
Procedure Note - Detailed Date of Procedure 07/29/22 Pre-op Diagnosis painful orthopedic hardware left foot Post-op Diagnosis Same Procedure Performed Removal of painful deep orthopedic hardware left foot Surgeon Tadeo Moseley JR, DPM Anesthesia MAC and Local Indications Painful prominet deep orthopedic harware left foot Description of Procedure Under mild sedation, the patient was brought in to the operating room, placed on the operating table in the supine position. A pneumatic ankle tourniquet was placed about the patient's leg. Following monitored anesthesia care, local anesthesia was obtained about the patients ankle utilizing 20 mL of a 1:1 mixture of 2% Lidocaine plain and 0.5% Marcaine plain. The foot was then scrubbed, prepped, and draped in the usual aseptic manner. An Esmarch bandage was then used to exsanguinate the patient's foot and the pneumatic calf tourniquet was then inflated. An incision was made along the dorsal medial aspect of the first metatarsal cuneiform joint left foot excising the old incision. The incision was continued deep to the subcutaneous structures. All bleeders were cauterized as necessary. A periosteal incision was made overlying the fused joint. The plate and screws were easily visualized and removed the [employer] system was utilized, fluroscopy was used to make sure that the entire plate and screws were properly removed.. The wound site was flushed with sterile saline. Next, the periosteal and capsular structures were reaproximated with 3.-0 Vicryl, next the subcutaneous structures were reapproximated with 4-0 vicryl, next the skin was reapproximated with 4-0 Monocryl in running subcuticular suture fashion technique. Upon completion of the procedure, the incision was dressed with Adaptic, 4x4s, Kerlix, and Coban. The pneumatic calf tourniquet was then deflated and a prompt hyperemic response was noted to all digits of the foot. A cam walker boot was then applied. The patient did very well with the procedure and the anesthesia. The patient was transferred to the recovery room with vital signs stable and vascular status intact to all toes of the foot. Following a period of postoperative monitoring, the patient will be discharged home on the following written and oral postoperative instructions: 1. The patient should keep the dressing clean, dry, and intact. Use a cast protector bag with showers. 2. The patient will be protected weightbearing with CAM boot. 3. Patient should ice and elevate the affected lower extremity while at rest. 4. The patient is to contact Dr. Moseley for all postop care and if any problems arise. 5. Prescriptions for pain medication already at home for the patient. Estimated Blood Loss 1 Drains No Packing No Pathology None sent Complications No immediate complications Condition Stable Disposition Same day
[2022-07-29 12:35] VITALS: BP 124/82; PULSE 58; RESP 16; O2SAT 96
[2022-07-29] MEDS: oxyCODONE HCL (*CRX) 5 MG TAB IR PO (12:46)
[2022-07-29 13:05] VITALS: BP 134/81; PULSE 56; RESP 16
[2022-07-29 13:30] VITALS: BP 126/82; PULSE 58; RESP 16
== END 2022-07-29 13:35 | disposition home or self-care (01) ==
PROVIDERS: PCP Family Medicine; Visit Provider Podiatrist Foot & Ankle Surgery
PROC: (CPT 20680; principal; 2022-07-29 11:30)
DX: T84.84XA Pain due to internal orthopedic prosthetic devices, implants and grafts, initial encounter (principal); M79.672 Pain in left foot; Y83.8 Other surgical procedures as the cause of abnormal reaction of the patient, or of later complication, without mention of misadventure at the time of the procedure; I10 Essential (primary) hypertension; K21.9 Gastro-esophageal reflux disease without esophagitis; E11.610 Type 2 diabetes mellitus with diabetic neuropathic arthropathy; F41.9 Anxiety disorder, unspecified; F32.A Depression, unspecified; E66.9 Obesity, unspecified; Z68.32 Body mass index [BMI] 32.0-32.9, adult; Z79.84 Long term (current) use of oral hypoglycemic drugs; Z79.899 Other long term (current) drug therapy
CPT/HCPCS: 20680; 82948; 99199; A9270; J0690; J2250; J2704; J3010; J7120

== ENCOUNTER 2022-08-08 08:11 | Outpatient (CLI) | payer OTHER, SELFPAY ==
--- NOTE | ~2022-08-08 | DEXA_ITS ---
Bone Density Report Name: JOSE R FELIX Age: 57 Sex: Female Ethnicity: White Date of : 1965 Indication: postmenopausal; screening for osteoporosis; height loss; Referring Provider: GONZALO PLASENCIA Study: Bone densitometry was performed. Exam Date: August 08, 2022 Accession number: [id number] Bone Density: Region BMD T-score Z-score Classification AP Spine(L1-L4) 1.027 -0.2 0.9 Normal Femoral Neck (Left) 1.057 1.9 2.9 Normal Total Hip (Left) 1.088 1.2 1.9 Normal World Health Organization criteria for BMD impression classify patients as: Normal (T-score at or above -1.0), Osteopenia (T-score between -1.0 and -2.5), or Osteoporosis (T-score at or below -2.5). 10-year Fracture Risk: FRAX not reported because: All T-scores for Spine Total, Hip Total, Femoral Neck at or above -1.0 Clinical Information Provided by Patient: Patient maximum height was 72 Menopause Age: 52 No regular weight bearing exercise Drinks caffeinated beverages Onset of menses at age 15 Number of children 2 Impression: The patient has normal bone mass. Discussion: BONE DENSITY IS ABOVE THE MINIMUM DESIRABLE LEVEL AT ALL SKELETAL SITES TESTED. This patient?s bone mineral density is above the minimum desirable level (T-score -1.0 or better) at all sites measured. The patient should follow a healthful lifestyle (good nutrition with adequate calcium and vitamin D, and appropriate weight-bearing exercise). Follow-Up: Consider repeating this study in 5 years or sooner if there is some new clinical indication. Reported by: KERVIN on 08/08/2022 8:38:00 AM. Reviewed, dictated and finalized at location Lucy LANGLEY
--- NOTE | ~2022-08-08 | MM_ITS ---
EXAMINATION: MM screening [facility] BI w terri HISTORY: Screening mammogram TECHNIQUE: Craniocaudal and mediolateral oblique 3-D tomosynthesis images were obtained and synthetic 2-D images were generated. CAD analysis was submitted and interpreted. COMPARISON: 05/31/2018, 10/27/2015, 06/16/2014 bilateral screening mammogram examinations BREAST PARENCHYMAL COMPOSITION: The breasts are almost entirely fatty. FINDINGS: There is no evidence of suspicious mass, calcification, or architectural distortion to sugg est malignancy in either breast. There has been no suspicious interval change. IMPRESSION: 1. No mammographic evidence of malignancy. 2. Recommend routine screening mammography in one year. BI-RADS Category 1: Negative Reviewed, dictated and finalized at location A. IST GUIDE
== END 2022-08-08 08:12 | disposition home or self-care (01) ==
LOC: ANHIMG 08:13
PROVIDERS: PCP Family Medicine; Visit Provider Advanced Practice Midwife
DX: Z12.31 Encounter for screening mammogram for malignant neoplasm of breast (principal); Z13.820 Encounter for screening for osteoporosis
CPT/HCPCS: 77063; 77067; 77080

== ENCOUNTER 2023-05-07 11:02 | Inpatient (IN) | payer OTHER, SELFPAY ==
[2023-05-07] VITALS (25 sets, daily range): BP systolic 112–160; BP diastolic 66–118; PULSE 61–81; RESP 12–20; TEMP 36.3–37.1; O2SAT 93–100; BMI 22.4
--- NOTE | ~2023-05-07 | XR_ITS ---
XR hip RT 2V w AP pelvis DATE: 05/07/2023 11:44 INDICATION: Pain and deformity right hip after fall today TECHNIQUE: AP pelvis. AP and crosstable lateral views of right hip COMPARISON: None FINDINGS: There is superolateral dislocation at the right total hip arthroplasty. Normal alignment at the pubic symphysis and sacroiliac joints. No pelvic fracture is detected. IMPRESSION: Superolateral dislocation of right total hip arthroplasty Reviewed, dictated and finalized at location A.
--- NOTE | ~2023-05-07 | XR_ITS ---
XR wrist LT min 3V DATE: 05/07/2023 13:27 INDICATION: Post reduction examination TECHNIQUE: 3 views COMPARISON: Prereduction 05/07/2022 left wrist FINDINGS: There is a splint. Approximately 5.7 mm residual dorsal displacement and approximately 18 degrees apex anterior angulati on at the comminuted distal radial metaphyseal fracture, with mild dorsal inclination of distal radia l articular surface. IMPRESSION: Mild residual dorsal displacement and 18 degrees apex anterior angulation Reviewed, dictated and finalized at location A. IMPRESSION: Mild residual dorsal displacement and 18 degrees apex anterior angu lation
--- NOTE | ~2023-05-07 | XR_ITS ---
XR wrist LT min 3V DATE: 05/07/2023 11:44 INDICATION: Pain and deformity after a fall today TECHNIQUE: 3 views COMPARISON: None FINDINGS: There is a comminuted distal radial metaphyseal fracture with approximately 7 mm dorsal dis placement and approximately 35 degrees apex anterior angulation. Radiocarpal alignment is preserved. There is a fracture of the ulnar styloid process. Osteoarthritis at first carpometacarpal joint. IMPRESSION: Comminuted distal radial metaphyseal fracture with approximately 7 mm dorsal displacement and approximately 35 degrees apex anterior angle regulation Fracture of ulnar styloid process Osteoarthritis at first carpometacarpal joint Reviewed, dictated and finalized at location A. IMPRESSION: Comminuted distal radial metaphyseal fracture with approximately 7 mm dorsal displacement and approximately 35 degrees apex anterior angle regulat ion Fracture of ulnar styloid process Osteoarthritis at first carpometacarpal joint
--- NOTE | ~2023-05-07 | XR_ITS ---
EXAMINATION: XR fluoroscopy <1hr, XR fluoroscopy <1hr DATE: 05/07/2023 15:40 CDT INDICATION: REDUCING OF RT HIP UNDER FLUORO . TECHNIQUE: 2 fluoroscopic images of the right hip were obtained during right hip and left wrist reduc tion. I was not present during the procedure. The following dose information applies to both the righ t hip and left wrist. Fluoroscopy exposure time was 25.9 seconds. Air Kerma 5.52 mGy. DAP 0.01179 mGy m2. COMPARISON: X-rays of the right hip and left wrist 05/07/2023 FINDINGS: The head of the femoral component is situated normally within the acetabular cup in the images provid ed. Radiographic detail of the wrist is obscured by cast material. Mild persistent lateral displaceme nt of the distal left radial fracture with near complete resolution of the dorsal displacement and an gulation. IMPRESSION: Fluoroscopic documentation of right hip and left wrist reduction. Please refer to the operative/proce dure note for complete procedural details . Reviewed, dictated and finalized at location K. IMPRESSION: Fluoroscopic documentation of right hip and left wrist reduction. Please refer to the operative/procedure note for complete procedural details .
--- NOTE | ~2023-05-07 | XR_ITS ---
XR femur RT min 2V DATE: 05/07/2023 11:44 INDICATION: Fall. Pain and deformity TECHNIQUE: AP and crosstable lateral views of right femur COMPARISON: None FINDINGS: There is superior lateral dislocation at the right total hip arthroplasty. No femoral fracture is noted. Normal alignment at the knee joint. IMPRESSION: Superolateral dislocation at right total hip arthroplasty Reviewed, dictated and finalized at location A.
--- NOTE | 2023-05-07 11:24 | ED.FALL ---
HPI - Fall General Chief Complaint: Fall Stated Complaint: L wrist deformity, R hip dislocated Time Seen by Provider: 05/07/23 11:10 Source: patient, family and EMS Mode of arrival: EMS Limitations: no limitations History of Present Illness HPI Narrative: 58 years old white female was about to mop the floor, standing position, twisted and fell, complaining of right hip pain and left wrist pain, she denies head injury or other injuries. History of hip replacement. Related Data Home Medications Medication Instructions Recorded Confirmed omeprazole 20 mg capsule,delayed 20 mg PO QAM 07/20/22 05/07/23 release solifenacin 10 mg tablet (Vesicare) 10 mg PO QAM 07/20/22 05/07/23 Allergies Allergy/AdvReac Type Severity Reaction Status Date / Time azithromycin Allergy Severe Hives / Verified 11/30/22 11:43 Red Face morphine AdvReac Severe Nausea and Verified 11/30/22 11:43 Vomiting scopolamine AdvReac Severe Blurry Verified 11/30/22 11:43 Vision, EYE PAIN Review of Systems Review of Systems: All systems reviewed & are unremarkable except as noted in HPI and below PMFSH Past Medical History Medical History Anxiety Arthritis Charcot ankle Depression Diabetes Foot drop, left Gastro-esophageal reflux disease without esophagitis Hypertension Morbid obesity Prepatellar bursitis Vitreous detachment Surgical History Surgical History History of laminectomy (~1990) History of laminectomy (~1996) History of right hip replacement (~2006) Family History Family History Father Heart disease Hypertension Aneurysm Sibling Lung cancer Mother Arthritis Social History Social History Smoking status: Never smoker Alcohol intake: unknown Substance use: never Lack of Transportation: No Lack of Food: Never True Current Housing: I Have Housing Concerned About Future Housing: No Difficulty Paying Gas/Electric Bills: No Difficulty Paying for Meds: No Currently Unemployed: No Education: Bachelor's Degree Difficulty w/ Childcare or Family Care: No Living arrangements: with family Additional living arrangements comments: ADULT CHILD Gender identity (if verbalized by the patient): Female Spiritual care concerns: No Exam Narrative: General appearance: Well-developed, well-nourished Skin: Normal color Head: Normocephalic, nontraumatic Eyes: Clear conjunctiva ENT: Oropharynx normal, ears normal, nose normal Neck: Supple, nontender Chest and respiratory: Airway patent, no respiratory distress, no accessory muscle use Heart: Regular rate/rhythm Abdomen: Soft, nontender, no organomegaly, quiet bowel sounds Vascular: Normal peripheral pulses, normal capillary refill. Musculoskeletal: Right lower extremity is shortened and externally rotated compared to the left when, left wrist deformity, swelling, severe limited range of motion Neurologic: Alert and oriented ?3, SUPERINTENDENT CEMETERY is normal as tested, no gross motor deficit Course Consultations Consultation #1: Dr. Blas Call Dr. Hilario Date: 05/07/23 Time: 15:48 Consultation #2: Dr. Adorno Hip replacement was not done by Dr. Hilario, contact orthopedic on-call Date: 05/07/23 Time: 15:51 Vital Signs Vital signs: Vital Signs Temperature 36.7 C 05/07/23 11:00 Pulse Rate 73 05/07/23 11:00 Respiratory Rate 18 05/07/23 11:00 Blood Pressure 157/91 H 05/07/23 11:00 Pulse Oximetry 100 05/07/23 11:00 Oxygen Delivery
[2023-05-07] MEDS: ETOMIDATE 20 MG/10 ML AMPUL IV PUSH (13:17)
[2023-05-07] MEDS: fentaNYL CITRATE INJ (*CRX) 100 MCG/2 ML VIAL 50 MCG IV PUSH (13:18)
--- NOTE | 2023-05-07 13:55 | PC.NURSE ---
1251 50mcg of Fentanyl given. 1257 10mg of Etomidate given. 1302 5mg of Etomidate given 1308 5mg of Etomidate given. 1310 Procedure ended
--- NOTE | 2023-05-07 15:32 | PM.CNOR ---
Assessment and Plan Assessment and plan (1) Hip dislocation, right: Code(s): S73.004A - Unspecified dislocation of right hip, initial encounter Status: Acute (2) Colles' fracture of left radius: Code(s): S52.532A - Colles' fracture of left radius, initial encounter for closed fracture Status: Acute Plan Patient has dislocation right hip prosthesis after 15 years. Of concern is the fact she felt that she said it felt a little funny before she popped it out. She has had recent triple arthrodesis on her left foot on whether she fell because of the hip her ankle on the left side down. She also suffered a comminuted fracture of the left wrist. I have discussed treatment options with the risks benefits limitations and alternatives. We will attempt closed reduction of the left hip. If for some reason had to can not be reduced would consider open reduction. The hip needs to be revised she is going to have to be shipped to [place]. I have discussed these 3 options with the patient and her family and she understands and agrees. Secondly she has a comminuted wrist fracture of left there has been a bit reduced but still quite displaced will try to reduce that as well. History of Present Illness HPI Consult date: 05/07/23 Chief complaint: L wrist deformity, R hip dislocated Narrative: Patient slipped and fell today suffering a dislocation of her right hip. This is done 15 years ago and she states this feels funny over the last several months. She has that a large weight loss. She fell and suffered a dislocation of her hip as well as a wrist fracture. On the left. Review of Systems Musculoskeletal: Musculoskeletal: Reports deformity, Reports arthralgias and Reports limited range of motion [facility] Past Medical History Medical History Anxiety Arthritis Charcot ankle Depression Diabetes Foot drop, left Gastro-esophageal reflux disease without esophagitis Hypertension Morbid obesity Prepatellar bursitis Vitreous detachment Surgical History Surgical History History of laminectomy (~1990) History of laminectomy (~1996) History of right hip replacement (~2006) Family History Family History Father Heart disease Hypertension Aneurysm Sibling Lung cancer Mother Arthritis Social History Social History Smoking status: Never smoker Alcohol intake: unknown Substance use: never Lack of Transportation: No Lack of Food: Never True Current Housing: I Have Housing Concerned About Future Housing: No Difficulty Paying Gas/Electric Bills: No Difficulty Paying for Meds: No Currently Unemployed: No Education: Bachelor's Degree Difficulty w/ Childcare or Family Care: No Living arrangements: with family Additional living arrangements comments: ADULT CHILD Gender identity (if verbalized by the patient): Female Spiritual care concerns: No Meds Home Medications and Allergies Home Medications Medication Instructions Recorded Confirmed Type omeprazole 20 mg capsule,delayed 20 mg PO QAM 07/20/22 11/30/22 History release solifenacin 10 mg tablet (Vesicare) 10 mg PO QAM 07/20/22 11/30/22 History metformin 500 mg tablet 500 mg PO QAM #90 tabs 12/13/22 Rx oxycodone-acetaminophen 5 mg-325 1 - 2 tablet PO Q4-6H PRN pain #30 01/25/23 Rx mg tablet tabs bupropion HCl 300 mg 24 hr tablet, 300 mg PO QAM #90 tabs 02/14/23 Rx extended release (Wellbutrin XL) tirzepatide 10 mg/0.5 mL See Rx Instructions .Route 03/07/23 Rx subcutaneous pen injector .COMPLEX #6 mL (Mounjaro) fluoxetine 20 mg capsule 60 mg PO QAM #270 caps 03/27/23 Rx oxaprozin 600 mg tablet See Rx Instructions .Route 04/17/23 Rx .COMPLEX #180 tabs Allergies Allergy/AdvReac Type Severi
--- NOTE | 2023-05-07 15:37 | WPDANESEPPF ---
Anes - Initial Pre Proc Eval Procedure: Operation Date: 05/07/23 15:30 Proposed Procedures p Closed Reduction Any Ortho - Yfn Blas MD Date/Time: 05/07/23 15:37 Surgeon: Yfn Blas MD Pre Op Diagnosis: L wrist deformity, R hip dislocated Patient Data Age: 58 Gender: F Height: Weight: 75 kg Last Vital Signs Temp 36.8 C 05/07/23 12:52 Pulse 70 05/07/23 15:16 Resp 15 05/07/23 15:16 BP 131/118 H 05/07/23 15:16 Pulse Ox 95 05/07/23 15:16 O2 Del Method Nasal Cannula 05/07/23 13:58 O2 Flow Rate 2 05/07/23 13:58 Allergies Allergy/AdvReac Type Severity Reaction Status Date / Time azithromycin Allergy Severe Hives / Verified 11/30/22 11:43 Red Face morphine AdvReac Severe Nausea and Verified 11/30/22 11:43 Vomiting scopolamine AdvReac Severe Blurry Verified 11/30/22 11:43 Vision, EYE PAIN Home Medications Medication Instructions Recorded Confirmed Type omeprazole 20 mg capsule,delayed 20 mg PO QAM 07/20/22 11/30/22 History release solifenacin 10 mg tablet (Vesicare) 10 mg PO QAM 07/20/22 11/30/22 History metformin 500 mg tablet 500 mg PO QAM #90 tabs 12/13/22 Rx oxycodone-acetaminophen 5 mg-325 1 - 2 tablet PO Q4-6H PRN pain #30 01/25/23 Rx mg tablet tabs bupropion HCl 300 mg 24 hr tablet, 300 mg PO QAM #90 tabs 02/14/23 Rx extended release (Wellbutrin XL) tirzepatide 10 mg/0.5 mL See Rx Instructions .Route 03/07/23 Rx subcutaneous pen injector .COMPLEX #6 mL (Mounjaro) fluoxetine 20 mg capsule 60 mg PO QAM #270 caps 03/27/23 Rx oxaprozin 600 mg tablet See Rx Instructions .Route 04/17/23 Rx .COMPLEX #180 tabs Patient hx anesthesia problems: post op nausea/vomiting Family hx anesthesia problems: none Results Review: All pre-operative results and documents have been reviewed as part of the pre-operative evaluation. [facility] Past Medical History Medical History Anxiety Arthritis Charcot ankle Depression Diabetes Foot drop, left Gastro-esophageal reflux disease without esophagitis Hypertension Morbid obesity Prepatellar bursitis Vitreous detachment Surgical History Surgical History History of laminectomy (~1990) History of laminectomy (~1996) History of right hip replacement (~2006) Family History Family History Father Heart disease Hypertension Aneurysm Sibling Lung cancer Mother Arthritis Social History Social History Smoking status: Never smoker Alcohol intake: unknown Substance use: never Lack of Transportation: No Lack of Food: Never True Current Housing: I Have Housing Concerned About Future Housing: No Difficulty Paying Gas/Electric Bills: No Difficulty Paying for Meds: No Currently Unemployed: No Education: Bachelor's Degree Difficulty w/ Childcare or Family Care: No Living arrangements: with family Additional living arrangements comments: ADULT CHILD Gender identity (if verbalized by the patient): Female Spiritual care concerns: No Anes - Eval Final PreProcedure Day of Procedure 05/07/23 15:37 Patient weight: obese Heart: regular rate and rhythm Lungs: clear to auscultation Airway: Mallampati scale class II Neurological: alert and oriented Last oral intake: >/= 8 hours ASA classification: III Emergent: no Anesthetic plan: proceed Anesthesia type and monitoring: general ETT and standard monitoring Results Review: All pre-operative results and documents have been reviewed as part of the pre-operative evaluation. Informed Consent: The patient's anesthetic plan and its attendant risks and benefits were discussed with the patient/family/POA. Questions were solicited and answers provided to the satisfaction of the patient/family/POA.
--- NOTE | 2023-05-07 16:03 | W.PM.PROC2 ---
Procedure Note - Detailed Date of Procedure 05/07/23 Pre-op Diagnosis L wrist deformity, R hip dislocated Post-op Diagnosis Same Procedure Performed Reduction right hip under anesthesia and reduction left wrist with casting under anesthesia Surgeon Yfn Blas MD Anesthesia General Description of Procedure Patient brought to operating room number 3 general anesthetic was administered placed on the operating table. The hip was gently manipulated and reduced it and reasonably easily and check x-rays in the AP and lateral planes showed that the reduction of some concern is the fact that appears reasonably stable however she popped it too much At this point I addressed the wrist the wrist was gently manipulated flexion ulnar deviation and the fracture fragments were near anatomic at point I placed her in short cast. X-rays in the AP and lateral planes demonstrated good alignment. Estimated Blood Loss 0 Complications No immediate complications Condition Stable Disposition Observation [facility] Billing Surgery - Charge Forward: Surgery Billing
[2023-05-07] MEDS: LACTATED RINGERS 1,000 ML 30 ML IV CONT ×2 (16:10)
[2023-05-07] MEDS: fentaNYL CITRATE INJ (*CRX) 100 MCG/2 ML VIAL 25 MCG IV PUSH ×4 (16:44→16:55)
--- NOTE | 2023-05-07 17:50 | ADMGEN ---
This patient, Deya Saha, was admitted to Medical Room 244-. Patient/family oriented to hospital policies and general routines including ID bracelet, bed and alarms, visiting hours, pain management, procedures, bathroom and other care routines, personal items, smoking policy, room service/diet, and visiting hours. Information on how to activate the Rapid Response Team has been discussed. Patient/Family are encouraged to report perceived risks to care and to ask questions if they do not understand what they are told or what they should do.
[2023-05-07] MEDS: SENNA/DOCUSATE SODIUM TABLET 2 TAB PO (18:06)
[2023-05-07] MEDS: HYDROcodone/acetaminophen (*CRX) 5-325 MG TABLET 2 TAB PO (18:06)
[2023-05-07] MEDS: RIVAROXABAN 10 MG TABLET PO (18:06)
--- NOTE | 2023-05-07 19:05 | WPDCN ---
Assessment and Plan Assessment and plan (1) Dislocation of internal right hip prosthesis: Code(s): T84.020A - Dislocation of internal right hip prosthesis, initial encounter Status: Acute (2) Colles' fracture of left radius: Code(s): S52.532A - Colles' fracture of left radius, initial encounter for closed fracture Status: Acute (3) Hypertension: Code(s): I10 - Essential (primary) hypertension Status: Acute Plan The patient presented to the emergency department for evaluation of right hip and left wrist pain after sustaining a fall as detailed in HPI. Labs, imaging, EKG, and all reports were personally reviewed. She has a prosthetic right hip which was dislocated and was reduced in the OR under anesthesia per Dr. Blas. She also has a left Colles fracture which was reduced under anesthesia as well. Further management deferred to Dr. Blas. She has had a substantial weight loss in the last couple of years and has been able to come off of some of her medications. Blood pressures were reviewed and they are stable. Her hemoglobin A1c has been well within normal limits. She is maintained on Mounjaro. Her home medications will be reviewed and resumed as appropriate. Check baseline labs in a.m. Thank you for allowing us to participate in this patient's care. Please do not hesitate to contact us with any questions. [facility] Data of Consult Date/Time: 05/07/23 21:00 Requesting Physician: Yfn Blas MD Consult Narrative Reason for consult: Medical management. Narrative: This is a very pleasant 58-year-old female whom the hospitalist service has been consulted for help managing her medical conditions following reduction of right hip and left wrist with casting under anesthesia per Dr. Blas. The patient was in her usual state of health this morning and not long prior to arrival she was vacuuming the floor when she went to turn around, got her foot tripped up, and she felt her right hip go out. This caused her to fall forward and she tried to catch herself with her left hand. She goes on to say that her balance is not great and she feels this is due to decreased sensation in her left ankle which was used a couple of years ago due to Charcot ankle. She was able to call for help and she was brought into the ER for evaluation. Multiple attempts were made to reduce the hip but they were unsuccessful and she was taken to the OR per Dr. Blas as above. At the time my evaluation she has muscle spasms over the right hip and most of her pain is in the left wrist. There was no head trauma for loss of consciousness in the fall. Regarding her chronic medical conditions, she believes that they are well controlled. She has lost quite a bit of weight on Mounjaro over the past couple of years and it sounds as though she has been able to come off of some of her medications. Review of Systems Review of Systems: No recent cold or flu symptoms. Denies chest pain shortness breast. No loss of consciousness in the fall. [facility] Past Medical History Medical History (Updated 05/08/23 @ 14:19 by Maribel Zamora PA-C) Anxiety Arthritis Charcot ankle Depression Diabetes Diet controlled Gastro-esophageal reflux disease without esophagitis Hypertension Metabolic syndrome Vitreous detachment Surgical History Surgical History (Updated 05/08/23 @ 00:04 by Maribel Zamora PA-C) History of arthrodesis Left ankle. History of laminectomy (1990) History of laminectomy (1996) History of right hip replacement (2006) Family History Family History Father Heart disease Hypertension Aneurysm Sibling Lung cancer Mother Arthritis Social History Social History (Updated 05/08/23 @ 00:00 by Maribel Zamora PA-C) Social History: Surrogate medical decision maker: Janine Saha, daughter. Code status: Full code. Smoking status: Never smoker Alc
[2023-05-07] MEDS: CYCLOBENZAPRINE HCL 10 MG TABLET PO (20:31)
[2023-05-08] VITALS (7 sets, daily range): BP systolic 95–113; BP diastolic 52–62; PULSE 60–76; RESP 16–18; TEMP 36.2–36.6; O2SAT 98–100
[2023-05-08] MEDS: HYDROcodone/acetaminophen (*CRX) 7.5-325 MG TABLET 2 TAB PO
[2023-05-08 06:04] LABS: Basophils Percent Auto 0.6 % (0.2-1.2); Eosinophils Percent Auto 0.6 % (0-4.4); Hematocrit 28.1 % (37.0-47.0); Hemoglobin 9.1 g/dL (12.0-15.0); Immature Granulocyte Absolute 0.01 K/mm3 (0.00-0.031); Immature Granulocyte Percent A 0.2 % (0-0.5); Lymphocytes Absolute Auto 1.74 K/mm3 (0.9-3.2); Mean Corpuscular HGB Conc 32.4 g/dl (32-36); Mean Corpuscular Hemoglobin 30.3 pg (26-34); Mean Corpuscular Volume 93.7 fl (80-100); Mean Platelet Volume 9.6 fl (7.4-10.4); Monocytes Absolute Auto 0.5 K/mm3 (0.1-0.6); Monocytes Percent Auto 9.8 % (2.6-8.5); Neutrophils Absolute Auto 2.8 K/mm3 (1.3-6.7); Neutrophils Percent Auto 54.8 % (45.5-73.1); Platelet Count Result 170 k/mm3 (150-375); Red Cell Distribution Width 13.9 % (11.5-14.5); White Blood Count 5.1 K/mm3 (4.5-10.0)
[2023-05-08 06:14] LABS: Alanine Aminotransferase 25 U/L (6-35); Albumin Level 2.9 g/dL (3.5-5.1); Alkaline Phosphatase 62 U/L (38-126); Anion Gap 4 mmol/L (8-16); Aspartate Amino Transferase 45 U/L (14-36); Bilirubin,Total 0.6 mg/dL (0.2-1.3); Blood Urea Nitrogen 17 mg/dL (7-17); Calcium 8.3 mg/dL (8.4-10.2); Carbon Dioxide 29 mmol/L (22-30); Chloride 104 mmol/L (98-107); Estimated CRCL calculation 71 ml/min; Estimated Glomerular Filt Rate > 60; Glucose 92 mg/dL (65-110); Potassium 3.1 mmol/L (3.4-5.0); Sodium 137 mmol/L (137-145)
--- NOTE | 2023-05-08 07:40 | PM.PNORT ---
Progress Note: A&P Assessment and Plan (1) Dislocation of internal right hip prosthesis: Code(s): T84.020A - Dislocation of internal right hip prosthesis, initial encounter Status: Acute (2) Fracture of left wrist: Qualifiers: Encounter type: subsequent encounter Fracture healing: with routine healing Fracture type: closed Qualified Code(s): S62.102D - Fracture of unspecified carpal bone, left wrist, subsequent encounter for fracture with routine healing Code(s): S62.102A - Fracture of unspecified carpal bone, left wrist, initial encounter for closed fracture Status: Acute Plan Patient is status post hip dislocation right hip has been reduced awaiting hip abduction guide. She also has a wrist fracture left comminuted which has been casted. Subjective Subjective Date/Time Seen: 05/08/23 07:40 Post Op day: 1 Principal diagnosis: Patient admitted with dislocation right hip prosthesis. L wrist FX Interval history: Patient's postoperative relocation right hip prosthesis comminuted Colles fracture left. She seems to be doing well. We will get a hip abduction guide today. Review of Systems Musculoskeletal: Musculoskeletal: Reports arthralgias and Reports joint swelling Exam Narrative: Patient comfortable wiggles toes. She is the cast is intact and she can wean her fingers. Pain is under control Objective Data Vital Signs Vital Signs: Vital Signs - 24 hr 05/07/23 11:00 05/07/23 12:52 05/07/23 13:10 Temperature 98.1 F 98.2 F Pulse Rate 73 Pulse Rate [Monitor] Respiratory Rate 18 20 17 Blood Pressure 157/91 H Blood Pressure [Right Arm] 158/84 H Pulse Oximetry 100 100 98 Oxygen Delivery Room Air Room Air Nasal Cannula Oxygen Flow Rate 2 05/07/23 13:25 05/07/23 13:40 05/07/23 13:58 Temperature Pulse Rate Pulse Rate [Monitor] 71 Respiratory Rate 14 16 20 Blood Pressure Blood Pressure [Right Arm] 153/97 H 136/85 146/96 H Pulse Oximetry 98 100 98 Oxygen Delivery Room Air Room Air Nasal Cannula Oxygen Flow Rate 2 05/07/23 13:03 05/07/23 13:08 05/07/23 14:12 Temperature Pulse Rate 69 Pulse Rate [Monitor] 81 67 Respiratory Rate 16 17 18 Blood Pressure Blood Pressure [Right Arm] 158/84 H 159/67 H Pulse Oximetry 98 98 100 Oxygen Delivery Nasal Cannula Nasal Cannula Oxygen Flow Rate 2 2 05/07/23 11:09 05/07/23 11:16 05/07/23 11:47 Temperature Pulse Rate Pulse Rate [Monitor] Respiratory Rate Blood Pressure 157/91 H 123/99 H 147/90 H Blood Pressure [Right Arm] Pulse Oximetry 99 98 100 Oxygen Delivery Oxygen Flow Rate 05/07/23 12:01 05/07/23 12:17 05/07/23 15:16 Temperature Pulse Rate 70 Pulse Rate [Monitor] Respiratory Rate 15 Blood Pressure 141/96 H 160/101 H 131/118 H Blood Pressure [Right Arm] Pulse Oximetry 99 100 95 Oxygen Delivery Oxygen Flow Rate 05/07/23 16:10 05/07/23 16:15 05/07/23 16:30 Temperature 98.8 F Pulse Rate 78 63 66 Pulse Rate [Monitor] Respiratory Rate 16 12 17 Blood Pressure 130/66 113/73 115/74 Blood Pressure [Right Arm] Pulse Oximetry 93 99 100 Oxygen Delivery Nasal Cannula Nasal Cannula Nasal Cannula Oxygen Flow Rate 4 4 4 05/07/23 16:45 05/07/23 17:00 05/07/23 17:15 Temperature Pulse Rate 66 62 67 Pulse Rate [Monitor] Respiratory Rate 12 13 19 Blood Pressure 118/75 116/71 118/76 Blood Pressure [Right Arm] Pulse Oximetry 100 100 100 Oxygen Delivery Nasal Cannula Nasal Cannula Nasal Cannula Oxygen Flow Rate 4 4 2 05/07/23 18:02 05/07/23 19:02 05/07/23 20:41 Temperature 97.6 F 97.4 F L 98.7 F Pulse Rate 63 61 63 Pulse Rate [Monitor] Respiratory Rate 14 14 16 Blood Pressure 122/81 124/81 112/72 Blood Pressure [Right Arm] Pulse Oximetry 99 100 100 Oxygen Delivery Oxygen Flow Rate 05/07/23 20:00 05/08/23 00:17 Temperature 97.8 F Pulse Rate 63 60 Pulse Rate [Monitor] Respiratory Rate 16
--- NOTE | 2023-05-08 08:34 | PCPTNOTE ---
Attempted PT evaluation, pt needs hip abduction brace. RN aware. Will follow.
[2023-05-08] MEDS: POTASSIUM CHLORIDE 20 MEQ ER TABLET 40 MEQ PO (09:10)
[2023-05-08] MEDS: SENNA/DOCUSATE SODIUM TABLET 2 TAB PO ×2 (09:11→17:06)
[2023-05-08] MEDS: HYDROcodone/acetaminophen (*CRX) 7.5-325 MG TABLET PO (09:12)
[2023-05-08] MEDS: polyethylene glycoL 3350 17 GM POWD.PACK PO (09:13)
--- NOTE | 2023-05-08 10:44 | PCOTNOTE ---
Pt. requires needs hip abduction brace prior to mobilization. RN aware. Will follow.
[2023-05-08] MEDS: CYCLOBENZAPRINE HCL 10 MG TABLET PO ×2 (11:38→21:03)
--- NOTE | 2023-05-08 14:27 | PM.IMPN ---
Progress Note: A&P Assessment and Plan (1) Dislocation of internal right hip prosthesis: Code(s): T84.020A - Dislocation of internal right hip prosthesis, initial encounter Status: Acute Assessment and Plan: 05/08/23: Ortho consulted on patient and patient went to OR yesterday to have a right hip reduction under anesthesia. Patient has abduction pillow for use at night, and she is being fitted for a hip abduction guide to wear during the day. PT and OT are working with patient. Caney changed to Percocet 5/325 1-2 tablets q.4 hours p.r.n. pain. Patient is still reporting quite a bit of pain was requesting her anti-inflammatory medication that she takes at home however we were unable to restart that due to her being on Xarelto as well would put her at a greater risk for GI bleed. Patient states that she takes Percocet at home taken Percocet at home which has worked for her in the past versus Caney. I can readjust Percocet dosing if she is not getting relief with current dosing. (2) Colles' fracture of left radius: Code(s): S52.532A - Colles' fracture of left radius, initial encounter for closed fracture Status: Acute Assessment and Plan: 05/08/23: Ortho following patient, patient was taken to the OR yesterday and had her left wrist fracture reduced and casting Patient reporting swelling at the wrist and fingers. She denies any numbness or tingling. She does have good capillary refill. Patient was worried that the cast was too tight and I agree that it is pretty tight around her thumb, I did reach out to Dr. Blas who is fine with me a cutting down around the thumb to relieve that area, I have nursing getting ortho cart from the ED. I also encouraged her to elevate above the level of the heart and to the use ice. Continue pain control efforts. (3) Hypertension: Code(s): I10 - Essential (primary) hypertension Status: Acute Assessment and Plan: 05/08/23: In reviewing patient's chart blood pressures are ranging 98/62 to 113/59. Looking back on her med reconciliation do not see any medications listed for hypertension. Patient states that she does not take any for tensive medication at. Plan Time Spent With Patient Time with patient: Greater than 35 minutes Subjective Date/time seen: 05/08/23 14:27 Interval history: This is a 58-year-old female presented to the emergency room after sustaining a fall. She reports right hip pain and left wrist pain at that time. Workup in the hospital consisted of multiple x-rays including a left wrist which showed a community distal radial metaphyseal fracture with approximately 7 mm dorsal displacement and approximately 35 degree apex anterior angle regulation, fracture of ulnar styloid process, osteoarthritis at 1st carpalmetacarpal joint. She also had a two view of the right hip which shows superolateral dislocation of the right total hip arthroplasty. She also had a two view of the femur which shows superolateral dislocation at the right total hip arthroplasty. She was seen by Ortho who took the patient to the OR on 05/07/2023 to have the right hip reduced and the left wrist reduced under anesthesia. On exam today patient is alert and oriented x3, interactive, cooperative. She is still reporting pain 7 to 8/10. She is also reporting that her cast is tight today. Patient denies any numbness or tingling, she does have good capillary refill, the cast does look tight around her thumb. Patient was fitted for her abduction brace to be used while up ambulating in out of the bed. Labs today revealed potassium level 3.1 otherwise unremarkable labs. I did give her 40 mEq potassium p.o. once. She was started on a regular diet today. I also restarted her home medications. I also adjusted her pain medication from Caney to Percocet as she is taken out in the past with better relief. I will reach out to the emergency room to see if they have a cast cutter
[2023-05-08] MEDS: FLUoxetine HCL 20 MG CAPSULE 60 MG PO (14:51)
[2023-05-08] MEDS: buPROPion HCL XL (24 HR) 150 MG TABCR 300 MG PO (14:51)
[2023-05-08] MEDS: oxyCODONE/ACETAMINOPHEN (*CRX) 5-325 MG TABLET PO ×3 (14:52→23:35)
[2023-05-08] MEDS: RIVAROXABAN 10 MG TABLET PO (17:07)
[2023-05-09] MEDS: oxyCODONE/ACETAMINOPHEN (*CRX) 5-325 MG TABLET PO ×3 (03:54→13:06)
[2023-05-09 05:59] LABS: Anion Gap 3 mmol/L (8-16); Blood Urea Nitrogen 16 mg/dL (7-17); Calcium 8.3 mg/dL (8.4-10.2); Carbon Dioxide 31 mmol/L (22-30); Chloride 105 mmol/L (98-107); Estimated CRCL calculation 71 ml/min; Estimated Glomerular Filt Rate > 60; Glucose 88 mg/dL (65-110); Potassium 3.3 mmol/L (3.4-5.0); Sodium 139 mmol/L (137-145)
[2023-05-09 06:09] LABS: Hematocrit 25.5 % (37.0-47.0); Hemoglobin 8.2 g/dL (12.0-15.0); Mean Corpuscular HGB Conc 32.2 g/dl (32-36); Mean Corpuscular Hemoglobin 30.6 pg (26-34); Mean Corpuscular Volume 95.1 fl (80-100); Mean Platelet Volume 9.6 fl (7.4-10.4); Platelet Count Result 164 k/mm3 (150-375); Red Blood Count 2.68 M/mm3 (4.2-5.4); White Blood Count 4.6 K/mm3 (4.5-10.0)
[2023-05-09 07:11] LABS: Magnesium 1.9 mg/dL (1.6-2.3)
--- NOTE | 2023-05-09 09:04 | PC.NURSE ---
Patient states has plat form walker at home will bring in to work with therapy.
[2023-05-09 09:07] VITALS: BP 123/76; PULSE 72
--- NOTE | 2023-05-09 09:08 | PM.PNORT ---
Progress Note: A&P Assessment and Plan (1) Dislocation of internal right hip prosthesis: Code(s): T84.020A - Dislocation of internal right hip prosthesis, initial encounter Status: Acute Plan Patient status post reduction right prosthetic hip dislocation reduction of left wrist fracture she is in a hip abduction guide at this point. I think she can be released today she should wear the guide at all times. I will see her back in 1-2 weeks for follow-up if she has any changes or problems she will call discussed Subjective Subjective Date/Time Seen: 05/09/23 09:08 Principal diagnosis: Right Hip Dislocation Interval history: Patient doing well status post right hip dislocation and left wrist fracture. She has now been fitted with a brace. Review of Systems Musculoskeletal: Musculoskeletal: Reports limited range of motion Exam Narrative: Neurologically patient is intact relatively comfortable this point. she is in a hip abduction guide. Objective Data Vital Signs Vital Signs: Vital Signs - 24 hr 05/08/23 09:09 05/08/23 11:02 05/08/23 14:52 Temperature 97.7 F 97.4 F L Pulse Rate 60 64 76 Respiratory Rate 16 16 Blood Pressure 113/59 L 103/56 L 101/57 L Pulse Oximetry 100 100 98 05/08/23 19:25 05/08/23 19:40 05/09/23 09:07 Temperature 97.9 F Pulse Rate 71 67 72 Respiratory Rate 18 Blood Pressure 103/52 L 95/53 L 123/76 Pulse Oximetry 98 98 Intake/Output Intake/Output: Intake & Output 05/06/23 05/07/23 05/08/23 05/09/23 23:59 23:59 23:59 23:59 Intake Total 100 1590 Balance 100 1590 Meds/Results Medications: Active Medications Generic Name Dose Route Start Last Admin Trade Name Freq PRN Reason Stop Dose Admin Bupropion HCl 300 mg 05/08/23 12:30 05/08/23 14:51 Bupropion Hcl Xl (24 Hr) 150 Mg Tabcr PO 300 mg QAM DAKOTAH Administration Cyclobenzaprine HCl 10 mg 05/07/23 17:17 05/08/23 21:03 Cyclobenzaprine Hcl 10 Mg Tablet PO 10 mg Q8H PRN Administration Muscle Spasm Fluoxetine HCl 60 mg 05/08/23 12:30 05/08/23 14:51 Fluoxetine Hcl 20 Mg Capsule PO 60 mg QAM DAKOTAH Administration Naloxone HCl 0.1 mg 05/07/23 17:17 Naloxone Hcl 0.4 Mg/Ml Vial IV PUSH Q2M PRN Opiate Reversal Oxycodone/Acetaminophen 1 - 2 tablet 05/08/23 15:05 05/09/23 03:54 Oxycodone/Acetaminophen (*Crx) 5-325 Mg Tablet PO 2 tablet Q4H PRN Administration Pain Rated 4-6 Polyethylene Glycol 17 gm 05/08/23 09:00 05/08/23 09:13 Polyethylene Glycol 3350 17 Gm Powd.Pack PO 17 gm QAM [facility]1983 Administration Rivaroxaban 10 mg 05/07/23 17:17 05/08/23 17:07 Rivaroxaban 10 Mg Tablet PO 10 mg DAILY@17 [facility]1983 Administration Senna/Docusate Sodium 2 tab 05/07/23 17:17 05/08/23 17:06 Senna/Docusate Sodium Tablet PO 2 tab BID DAKOTAH Administration Solifenacin 10 mg 05/09/23 09:00 Solifenacin 5 Mg Tablet PO QAM [facility]1983 Radiology Results: ITS Impressions Hip/Pelvis X-Ray 05/07/23 12:21 IMPRESSION: Superolateral dislocation of right total hip arthroplasty Femur X-Ray 05/07/23 12:22 IMPRESSION: Superolateral dislocation at right total hip arthroplasty Wrist X-Ray 05/07/23 13:52 IMPRESSION: Mild residual dorsal displacement and 18 degrees apex anterior angulation Fluoroscopy 05/07/23 19:23 IMPRESSION: Fluoroscopic documentation of right hip and left wrist reduction. Please refer to the operative/procedure note for complete procedural details . Fluoroscopy 05/07/23 19:23 IMPRESSION: Fluoroscopic documentation of right hip and left wrist reduction. Please refer to the operative/procedure note for complete procedural details . Labs Labs: Laboratory Results - last 24 hr 05/09/23 05/09/23 05:16 05:20 WBC 4.6 RBC 2.68 L Hgb 8.2 L Hct 25.5 L MCV 95.1 MCH 30.6 MCHC 32.2 RDW 14.0 Plt Count 164 MPV 9.6 Sodium 139 Potassium 3.3 L
[2023-05-09] MEDS: buPROPion HCL XL (24 HR) 150 MG TABCR 300 MG PO (09:11)
[2023-05-09] MEDS: SENNA/DOCUSATE SODIUM TABLET 2 TAB PO (09:11)
[2023-05-09] MEDS: FLUoxetine HCL 20 MG CAPSULE 60 MG PO (09:11)
[2023-05-09] MEDS: SOLIFENACIN 5 MG TABLET 10 MG PO (09:12)
[2023-05-09] MEDS: polyethylene glycoL 3350 17 GM POWD.PACK PO (09:12)
[2023-05-09] MEDS: POTASSIUM CHLORIDE 20 MEQ PACKET (FOR LIQUID) 40 MEQ PO (09:13)
--- NOTE | 2023-05-09 09:14 | PM.DS ---
DS: Admitting Diagnosis Discharge Date 05/09/2023 Admitting Diagnosis Right Prosthetic Hip dislocation Left Colles FX DS: Discharge Diagnosis Discharge Diagnosis (1) Dislocation of internal right hip prosthesis: Code(s): T84.020A - Dislocation of internal right hip prosthesis, initial encounter Status: Acute (2) Fracture of left wrist: Qualifiers: Encounter type: subsequent encounter Fracture healing: with routine healing Fracture type: closed Qualified Code(s): S62.102D - Fracture of unspecified carpal bone, left wrist, subsequent encounter for fracture with routine healing Code(s): S62.102A - Fracture of unspecified carpal bone, left wrist, initial encounter for closed fracture Status: Acute Plan Patient will be dismissed home with home health. She has not had hip abduction guide she is to wear at all times. Follow up 1 to 2 weeks will take x-rays of her wrist at that point. DS: Summary Hospital Course Reason for hospitalization: Hip dislocation right. And comminuted Colles fracture left. Hospital Course: Patient had a benign hospital course has been fitted with the hip abduction guide and can be dismissed at this point. Status at Discharge Functional status at discharge: uses cane/walker Overall status at discharge: patient is not back to baseline Time Spent with Patient Time attestation: Total time spent providing and/or coordinating discharge services: Exam Narrative: On exam patient wiggles her toes on the right. Pain is tolerable she is comfortable in her left short-arm cast. DS: Data Data Completed and Pending Labs on day of discharge: Labs from last 24 hours 05/09/23 05/09/23 05:20 05:16 WBC 4.6 RBC 2.68 L Hgb 8.2 L Hct 25.5 L MCV 95.1 MCH 30.6 MCHC 32.2 RDW 14.0 Plt Count 164 MPV 9.6 Sodium 139 Potassium 3.3 L Chloride 105 Carbon Dioxide 31 H Anion Gap 3 L BUN 16 Creatinine 0.90 Estim Creat Clear Calc 71 Estimated GFR > 60 Glucose 88 Calcium 8.3 L Magnesium 1.9 Discharge Plan Discharge Attending physician on discharge: Yfn Blas Consulting providers: Maribel Zamora Discharging Clinician: Yfn Blas Patient Disposition: Home Health Service Activity: no shower Diet: regular Discharge Instructions: For hip tugged abduction guided all times. Follow up in 1 to 2 weeks. Patient Instructions: Antibiotic Form, Rivaroxaban (By mouth), Pain Management (DC) Stand Alone Forms: General Discharge Information Follow-up/Referrals: Yfn Blas MD [Physician] - Sammy Landaverde MD [Primary Care Provider] - Discharge Medications: Continued solifenacin [Vesicare] 10 mg tablet 10 mg PO QAM omeprazole 20 mg Capsule,Delayed Release(Dr/Ec) 20 mg PO QAM metformin 500 mg tablet 500 mg PO QAM Qty: 90 3RF oxycodone-acetaminophen 5-325 mg tablet 1 - 2 tablet PO Q4-6H MDD 6 PRN (Reason: pain) Qty: 30 0RF Patient Comments: Pt stated about a month Rx Instructions: takes about once a month bupropion HCl [Wellbutrin XL] 300 mg tablet extended release 24 hr 300 mg PO QAM Qty: 90 1RF Mounjaro 10 mg/0.5 mL pen injector See Rx Instructions .ROUTE .COMPLEX Qty: 6 3RF Dose Instruction: INJECT 10MG (0.5ML) UNDER THE SKIN WEEKLY Rx Instructions: INJECT 10MG (0.5ML) UNDER THE SKIN EVERY TEN DAYS PT DOES NOT WANT TO fluoxetine 20 mg capsule 60 mg PO QAM Qty: 270 1RF Rx Instructions: TAKE THREE CAPSULES BY MOUTH DAILY oxaprozin 600 mg tablet See Rx Instructions .ROUTE .COMPLEX Qty: 180 1RF Dose Instruction: TAKE 1 TABLET BY MOUTH TWICE DAILY Rx Instructions: TAKE 2 TABLET BY MOUTH DAILY TO MAKE 1200MG Date of admission: 05/07/23 14:39 Primary Care Provider: Sammy Landaverde Admitting Provider: Yfn Blas Attending physician on admission: And
--- NOTE | 2023-05-09 09:36 | PCOTNOTE ---
Spoke with Dr. Wan Rios, over the phone who states pt. can have hip brace adjusted to allow for up to 70 degrees of flexion at hip. Called [facility], who provided brace to come adjust with kiosk sales representative planning to arrive around noon today. Nursing aware of pt. need to platform walker, pt. stating she has available platform walker and plans to have it delivered today for adjustment as needed. If personal platform walker does not work for this scenario, pt. will need additional platform walker ordered.
[2023-05-09 14:29] VITALS: BP 113/63; PULSE 63; RESP 20; TEMP 36.6; O2SAT 100
--- NOTE | 2023-05-09 15:11 | PM.IMPN ---
Progress Note: A&P Assessment and Plan (1) Dislocation of internal right hip prosthesis: Code(s): T84.020A - Dislocation of internal right hip prosthesis, initial encounter Status: Acute Assessment and Plan: 05/08/23: Ortho consulted on patient and patient went to OR yesterday to have a right hip reduction under anesthesia. Patient has abduction pillow for use at night, and she is being fitted for a hip abduction guide to wear during the day. PT and OT are working with patient. [place] changed to Percocet 5/325 1-2 tablets q.4 hours p.r.n. pain. Patient is still reporting quite a bit of pain was requesting her anti-inflammatory medication that she takes at home however we were unable to restart that due to her being on Xarelto as well would put her at a greater risk for GI bleed. Patient states that she taken Percocet at home which has worked for her in the past versus [place]. I can readjust Percocet dosing if she is not getting relief with current dosing. 05/09/23: Ortho primary on the case and has placed discharge orders, with follow-up in 1-2 weeks. She is to remain in her hip abduction guide brace during the day while she is up and then use the abduction pillow for at night. PT and OT are working with patient Continue pain management with Percocet and has been well maintained. (2) Colles' fracture of left radius: Code(s): S52.532A - Colles' fracture of left radius, initial encounter for closed fracture Status: Acute Assessment and Plan: 05/08/23: Ortho following patient, patient was taken to the OR yesterday and had her left wrist fracture reduced and casting Patient reporting swelling at the wrist and fingers. She denies any numbness or tingling. She does have good capillary refill. Patient was worried that the cast was too tight and I agree that it is pretty tight around her thumb, I did reach out to Dr. Blas who is fine with me a cutting down around the thumb to relieve that area, I have nursing getting ortho cart from the ED. I also encouraged her to elevate above the level of the heart and to the use ice. Continue pain control efforts. 05/09/23: Patient is still reporting continuous pain in her left wrist which is to be expected. Patient has good cap refill, denies numbness, and tingling. She is able to move her fingers and thumb. She states that her cast felt more comfortable through the night after removing a little piece around her thumb. Continued ice and elevated home. Continue pain control effort. Plan Subjective Date/time seen: 05/09/23 15:11 Interval history: Patient doing well status post right hip dislocation and left wrist fracture. She has now been fitted with a brace. Review of Systems Review of Systems: [facility] [address] [place] [id number] Hospitalist Progress Note Interval history: 05/08/23: This is a 58-year-old female presented to the emergency room after sustaining a fall.? She reports right hip pain and left wrist pain at that time.? 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 She also had a two view of the right hip which shows superolateral dislocation of the right total hip arthroplasty.? She also had a two view of the femur which shows superolateral dislocation at the right total hip arthroplasty.? She was seen by Ortho who took the patient to the OR on 05/07/2023 to have the right hip reduced and the left wrist reduced under anesthesia. On exam today patient is alert and oriented x3, interactive, cooperative.? She is still reporting pain 7 to 8/10.? She is also reporting that her cast is tight today.? Patient denies any numbness or tingling, she does hav
== END 2023-05-09 16:50 | disposition home health service (06) | DRG 560 ==
LOC: ANHED 11:46 → ANHSURGERY 15:31 → ANHED 19:34 → ANHSURGERY 19:34 → ANH2MED 19:38
PROVIDERS: Nurse Practitioner Acute Care; Physician Assistant; Admitting Provider Orthopaedic Surgery; Emergency Provider Emergency Medicine; PCP Family Medicine; Visit Provider Orthopaedic Surgery
PROC: 0SS9XZZ Reposition Right Hip Joint, External Approach (ICD-10-PCS; principal; 2023-05-07 15:30)
DX: T84.020A Dislocation of internal right hip prosthesis, initial encounter (principal); S52.532A Colles' fracture of left radius, initial encounter for closed fracture; S52.612A Displaced fracture of left ulna styloid process, initial encounter for closed fracture; W18.39XA Other fall on same level, initial encounter; M21.372 Foot drop, left foot; K21.9 Gastro-esophageal reflux disease without esophagitis; I10 Essential (primary) hypertension; M19.90 Unspecified osteoarthritis, unspecified site; Z96.641 Presence of right artificial hip joint; E66.01 Morbid (severe) obesity due to excess calories; Z68.22 Body mass index [BMI] 22.0-22.9, adult; E11.9 Type 2 diabetes mellitus without complications; M70.40 Prepatellar bursitis, unspecified knee
CPT/HCPCS: 25624; 27265; 36415; 73110; 73502; 73552; 76000; 80048; 80053; 83735; 85025; 85027; 96374; 96375; 97161; 97166; 97530; 97535; 99285; A9270; J0330; J1100; J2250; J2405; J2704; J3010; J7120

== ENCOUNTER 2023-05-22 11:28 | Outpatient (CLI) | payer OTHER, SELFPAY ==
--- NOTE | ~2023-05-22 | XR_ITS ---
Left wrist Technique: PA, oblique, lateral, and ulnar deviation views were obtained. Clinical History: Fracture COMPARISON: 05/15/2023 Findings: Cast overlying the wrist obscures fine bony detail. Transverse fracture of the distal radia l metaphysis appears similar to prior exam. Probable mildly displaced fracture of the ulnar styloid p rocess. Soft tissues are unremarkable. Impression: Transverse fracture the distal radial metaphysis is similar appearance/alignment to prior exam. Cast obscures fine bony detail. Probable mildly displaced fracture of the ulnar styloid process. Reviewed, dictated and finalized at location . Impression: Transverse fracture the distal radial metaphysis is similar appearance/alignmen t to prior exam. Cast obscures fine bony detail. Probable mildly displaced fracture of the ulnar styloid process.
--- NOTE | ~2023-05-22 | XR_ITS ---
AP and lateral views of the right hip Clinical history: Dislocation COMPARISON: 05/07/2023 Findings: Right hip arthroplasty hardware is in place. Hardware and osseous alignment is unremarkable . No acute osseous fracture seen. Soft tissues are unremarkable. Soft tissues are unremarkable. Impression: No acute abnormality. Right hip arthroplasty in place. Previously noted arthroplasty dislocation has been successfully redu camryn in the interval. Reviewed, dictated and finalized at location M. Impression: No acute abnormality. Right hip arthroplasty in place. Previously noted arthroplasty dislocation has been successfully reduced in the interval.
== END 2023-05-22 11:29 | disposition home or self-care (01) ==
PROVIDERS: PCP Family Medicine; Visit Provider Orthopaedic Surgery
DX: T84.020A Dislocation of internal right hip prosthesis, initial encounter (principal); S62.102A Fracture of unspecified carpal bone, left wrist, initial encounter for closed fracture; X58.XXXA Exposure to other specified factors, initial encounter
CPT/HCPCS: 73110; 73502

== ENCOUNTER 2023-05-24 10:25 | Outpatient (CLI) | payer OTHER, SELFPAY ==
[2023-05-24 13:48] LABS: Basophils Percent Auto 0.8 % (0.2-1.2); Eosinophils Absolute Auto 0.1 K/mm3 (0-0.3); Eosinophils Percent Auto 2.1 % (0-4.4); Hematocrit 34.8 % (37.0-47.0); Hemoglobin 10.6 g/dL (12.0-15.0); Immature Granulocyte Absolute 0.01 K/mm3 (0.00-0.031); Immature Granulocyte Percent A 0.3 % (0-0.5); Immature Reticulocyte Fraction 17.5 % (3.0-15.9); Lymphocytes Absolute Auto 0.82 K/mm3 (0.9-3.2); Lymphocytes Percent Auto 21.5 % (18.3-44.2); Mean Corpuscular HGB Conc 30.5 g/dl (32-36); Mean Corpuscular Hemoglobin 29.2 pg (26-34); Mean Corpuscular Volume 95.9 fl (80-100); Mean Platelet Volume 9.4 fl (7.4-10.4); Monocytes Absolute Auto 0.3 K/mm3 (0.1-0.6); Monocytes Percent Auto 6.6 % (2.6-8.5); Neutrophils Absolute Auto 2.6 K/mm3 (1.3-6.7); Neutrophils Percent Auto 68.7 % (45.5-73.1); Platelet Count Result 336 k/mm3 (150-375); Red Blood Count 3.63 M/mm3 (4.2-5.4); Red Cell Distribution Width 14.8 % (11.5-14.5); Reticulocyte Hemoglobin Conten 29.6 pg (28.2-35.7); Reticulocyte Percent 2.58 % (0.7-4.3); Reticulocytes Absolute 0.09 M/mm3 (0.02-0.1); White Blood Count 3.8 K/mm3 (4.5-10.0)
[2023-05-24 13:50] LABS: Alanine Aminotransferase 19 U/L (6-35); Albumin Level 3.8 g/dL (3.5-5.1); Alkaline Phosphatase 102 U/L (38-126); Anion Gap 6 mmol/L (8-16); Aspartate Amino Transferase 33 U/L (14-36); Bilirubin,Total 0.9 mg/dL (0.2-1.3); Blood Urea Nitrogen 20 mg/dL (7-17); Carbon Dioxide 31 mmol/L (22-30); Chloride 100 mmol/L (98-107); Estimated Glomerular Filt Rate > 60; Glucose 78 mg/dL (65-110); Potassium 3.8 mmol/L (3.4-5.0); Sodium 137 mmol/L (137-145)
[2023-05-24 13:51] LABS: Cholesterol 161 mg/dL (0-200); HDL Direct 47 mg/dL; Triglycerides 85 mg/dL (<150)
[2023-05-24 14:01] LABS: LDL Cholesterol Direct 74 mg/dL
[2023-05-24 14:32] LABS: Hemoglobin A1C 4.2 % (<5.7)
[2023-05-24 20:38] LABS: Iron 56 ug/dL (37-170)
== END 2023-05-24 10:26 | disposition home or self-care (01) ==
LOC: ANHGOSHLAB 10:26
PROVIDERS: PCP Family Medicine; Visit Provider Family Medicine
DX: D64.9 Anemia, unspecified (principal); E87.6 Hypokalemia; E11.9 Type 2 diabetes mellitus without complications; R74.8 Abnormal levels of other serum enzymes
CPT/HCPCS: 36415; 80053; 80061; 82728; 83036; 83540; 85025; 85046

== ENCOUNTER 2023-06-05 11:28 | Outpatient (CLI) | payer OTHER, SELFPAY ==
--- NOTE | ~2023-06-05 | XR_ITS ---
Left wrist Technique: PA, oblique, lateral, and ulnar deviation views were obtained. Clinical History: Fracture COMPARISON: 05/22/2023 Findings: Transverse, probable comminuted fractures of distal radius again present, with significant dorsal displacement, and dorsal angulation. Osseous alignment is essentially stable from prior exam. Mild degenerative change at the first CMC joint noted. Remaining joint spaces are preserved. Cast ove rlying the wrist obscures fine bony detail. Soft tissues are unremarkable. Impression: Distal radial fracture is essentially stable from prior exam. Possible minimal interval healing. Reviewed, dictated and finalized at location . NICAL SOLUTIONS DIRECTOR Impression: Distal radial fracture is essentially stable from prior exam. Possible minimal interval healing.
== END 2023-06-05 11:29 | disposition home or self-care (01) ==
LOC: ANHIMG 11:29
PROVIDERS: PCP Family Medicine; Visit Provider Orthopaedic Surgery
DX: S52.502D Unspecified fracture of the lower end of left radius, subsequent encounter for closed fracture with routine healing (principal); X58.XXXA Exposure to other specified factors, initial encounter
CPT/HCPCS: 73110

== ENCOUNTER 2023-06-26 08:47 | Outpatient (CLI) | payer OTHER, SELFPAY ==
--- NOTE | ~2023-06-26 | XR_ITS ---
EXAMINATION: XR fl inj hip RT for MR/CT DATE: 06/26/2023 09:42 INDICATION: Recent right hip dislocation. TECHNIQUE: A time-out was performed to verify the patient's name, date of , and procedure to b e performed. The procedure including the risks, benefits, and alternatives was discussed with the pat ient. Risks discussed included bleeding and infection. The patient understood the risks and agreed to proceed. The skin overlying the right hip joint was prepped and draped in usual sterile fashion. An esthetic was administered with 1% lidocaine subcutaneously. A 22 G needle was advanced under fluoros copic guidance into the joint. Subsequently, injectate consisting of 10 mL of 1:2 1% lidocaine and 1 :2 Omnipaque 240 was instilled. The needle was removed and the entry site was cleaned and dressed. There were no immediate complications. Fluoroscopy exposure time was 0.1 minutes. The total number of images was 2. FINDINGS: Real-time fluoroscopy demonstrates the needle and contrast in the right hip joint. IMPRESSION: 1. Successful right hip joint injection of contrast for subsequent CT arthrography. Reviewed, dictated and finalized at location A. S COUNTER SALES PERSON IMPRESSION: 1. Successful right hip joint injection of contrast for subsequent CT arthrogra phy.
--- NOTE | ~2023-06-26 | CT_ITS ---
. EXAMINATION: CT hip RT w con DATE: 06/26/2023 09:43 INDICATION: Other specified postprocedural status. Right hip dislocation status post total hip arthro plasty. TECHNIQUE: Computed tomography (CT) of the right hip was performed without intravenous contrast after intra-articular injection of contrast (CT arthrogram). Automated exposure control and iterative radha nstruction technique were employed. The dose-length product was 436.39 mGy-cm. COMPARISON: Right hip radiographs 05/22/2023 FINDINGS: There is a total right hip arthroplasty in near-anatomic alignment. No asymmetric liner wea r. No periprosthetic lucency to suggest loosening or infection. No fracture. There is contrast in the hip joint and surrounding soft tissues. There is severe lumbar spondylosis. IMPRESSION: 1. Total right hip arthroplasty in near-anatomic alignment. Reviewed, dictated and finalized at location A. TY CORONER
--- NOTE | ~2023-06-26 | XR_ITS ---
Left wrist Technique: PA, oblique, lateral, and ulnar deviation views were obtained. Clinical History: Fracture COMPARISON: 623 Findings: Cast overlying the wrist obscures fine bony detail. Transverse fracture the distal radial m etaphyseal region is stable from prior exam, probable mild increased callus formation. Stable positiv e ulnar variance with dorsal displacement and dorsal angulation of the fracture. Soft tissues are unr emarkable. Impression: Mild interval healing of distal radial fracture, with stable alignment from prior exam. There is pers istent dorsal displacement and mild dorsal angulation. Persistent positive ulnar variance. Reviewed, dictated and finalized at location . ASSESSMENT NURSE Impression: Mild interval healing of distal radial fracture, with stable alignment from kwabena or exam. There is persistent dorsal displacement and mild dorsal angulation. Persistent positive ulnar variance.
== END 2023-06-26 08:48 | disposition home or self-care (01) ==
PROVIDERS: PCP Family Medicine; Visit Provider Orthopaedic Surgery
DX: Z98.890 Other specified postprocedural states (principal)
CPT/HCPCS: 20610; 73110; 73701; 77002; Q9966; Q9967

== ENCOUNTER 2023-06-30 12:25 | Day surgery (SDC) | payer OTHER, SELFPAY ==
[2023-06-30] VITALS (16 sets, daily range): BP systolic 96–150; BP diastolic 57–94; PULSE 52–74; RESP 12–19; TEMP 36.4–37.2; O2SAT 91–100
--- NOTE | ~2023-06-30 | XR_ITS ---
EXAMINATION: XR surgery orthopedic DATE: 06/30/2023 16:50 INDICATION: Closed reduction of a right hip dislocation TECHNIQUE: Single likely crosstable lateral fluoroscopic image of the right hip was obtained during p rocedure performed by Dr. Blas. Radiologist was not present for the imaging or procedure. The [place] unt of fluoroscopy time used during this procedure was 0.2 minutes. COMPARISON: 06/30/2023 FINDINGS/IMPRESSION: Partially visualized right total hip arthroplasty with the head of the femoral component projecting c oncentric over the acetabular component suggesting likely successful relocation. Would consider ortho gonal plane of imaging for more definitive determination. Reviewed, dictated and finalized at location A. L[facility] [employer] GENERATOR
--- NOTE | ~2023-06-30 | XR_ITS ---
AP view of the pelvis and AP and lateral views of the right hip Clinical history: Dislocation Findings: There is total right hip arthroplasty, with superior dislocation of the femoral head compon ent from the acetabular cup. No acute osseous fracture seen. Left hip joint space is preserved. SI suman ints are intact. Soft tissues are unremarkable. Soft tissues are unremarkable. Impression: Right hip arthroplasty with superior dislocation of the femoral head component from the acetabular cu p. Reviewed, dictated and finalized at location M. ERIZER FEEDER Impression: Right hip arthroplasty with superior dislocation of the femoral head component from the acetabular cup.
--- NOTE | 2023-06-30 12:32 | ED.LOWEXIN ---
HPI - Extremity Injury (Lower) General Chief Complaint: Extremity Injury, Lower <Tahmina Garcia MD - Last Filed: 07/02/23 02:13> Stated Complaint: R hip dislocated <Tahmina Garcia MD - Last Filed: 07/02/23 02:13> Time Seen by Provider: 06/30/23 12:30 <Tahmina Garcia MD - Last Filed: 07/02/23 02:13> Source: patient <Tahmina Garcia MD - Last Filed: 07/02/23 02:13> History of Present Illness HPI Narrative: This is a 58 yo female with diabetes who presents with concern for a dislocated right hip. She had hip replacement 16 years ago. Approximately 7 weeks ago it dislocated and she states they attempted bedside reduction but it ultimately required the operating room for reduction. During the last encounter, it was in the setting of a fall during which she broke her arm. She just had the cast from her arm removed on Monday and had her follow up appointment with her orthopedic surgeon Dr Blas. This injury was deemed non-operative. She has a history of neuropathy but denies any acute paresthesias. No trauma preceding today's dislocation - she reports having her feet planted but turning and feeling the acute pain. This occurred at about 10am. Home medication also includes Wygovy for which patient has lost a significant amout of weight. Last oral intake before 10am. <Tahmina Garcia MD - Last Filed: 07/02/23 02:13> Related Data Home Medications: Home Medications Medication Instructions Recorded Confirmed omeprazole 20 mg capsule,delayed 20 mg PO QAM 07/20/22 06/30/23 release <Tahmina Garcia MD - Last Filed: 07/02/23 02:13> Allergies/Adverse Reactions: Allergies Allergy/AdvReac Type Severity Reaction Status Date / Time azithromycin Allergy Severe Hives / Verified 06/30/23 15:50 Red Face scopolamine Allergy Unknown Blurry Verified 06/30/23 15:50 Vision,Blurry Vision, EYE PAIN morphine AdvReac Severe Nausea and Verified 06/30/23 15:50 Vomiting <Tahmina Garcia MD - Last Filed: 07/02/23 02:13> PMFSH Past Medical History Medical History: Medical History (Reviewed 06/26/23 @ 11:05 by Sherrill Whitten [facility]) Anxiety Arthritis Charcot ankle Depression Diabetes Diet controlled Gastro-esophageal reflux disease without esophagitis Hypertension Metabolic syndrome Vitreous detachment <Tahmina Garcia MD - Last Filed: 07/02/23 02:13> Surgical History Surgical History: Surgical History (Reviewed 06/26/23 @ 11:05 by Sherrill Whitten [facility]) History of arthrodesis Left ankle. History of laminectomy (1990) History of laminectomy (1996) History of right hip replacement (2006) <Tahmina Garcia MD - Last Filed: 07/02/23 02:13> Family History Family History: Family History (Reviewed 06/26/23 @ 11:05 by Sherrill Whitten [facility]) Father Heart disease Hypertension Aneurysm Sibling Lung cancer Mother Arthritis <Tahmina Garcia MD - Last Filed: 07/02/23 02:13> Social History Social History: Social History (Reviewed 06/26/23 @ 11:05 by Sherrill Whitten [facility]) Social History: Surrogate medical decision maker: Janine Saha, daughter. Code status: Full code. 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 Spiritual care concerns: No <Tahmina Garcia MD - Last Filed: 07/02/23 02:13> Exam Narrative: GENERAL: Well-appearing, well-nour
[2023-06-30] MEDS: HYDROmorphone HCL INJ (*CRX) 1 MG/ML SYR 0.5 MG IV PUSH ×2 (12:48→14:42)
[2023-06-30 12:50] LABS: Basophils Percent Auto 0.6 % (0.2-1.2); Eosinophils Absolute Auto 0.1 K/mm3 (0-0.3); Eosinophils Percent Auto 2.7 % (0-4.4); Hematocrit 38.8 % (37.0-47.0); Hemoglobin 12.7 g/dL (12.0-15.0); Immature Granulocyte Absolute 0.05 K/mm3 (0.00-0.031); Lymphocytes Absolute Auto 1.28 K/mm3 (0.9-3.2); Lymphocytes Percent Auto 26.3 % (18.3-44.2); Mean Corpuscular HGB Conc 32.7 g/dl (32-36); Mean Corpuscular Hemoglobin 29.2 pg (26-34); Mean Corpuscular Volume 89.2 fl (80-100); Mean Platelet Volume 9.2 fl (7.4-10.4); Monocytes Absolute Auto 0.3 K/mm3 (0.1-0.6); Monocytes Percent Auto 6.8 % (2.6-8.5); Neutrophils Percent Auto 62.6 % (45.5-73.1); Platelet Count Result 220 k/mm3 (150-375); Red Blood Count 4.35 M/mm3 (4.2-5.4); Red Cell Distribution Width 13.4 % (11.5-14.5); White Blood Count 4.9 K/mm3 (4.5-10.0)
[2023-06-30 12:58] LABS: INR 0.9; Partial Thromboplastin Time 25.2 SECONDS (22.3-36.8)
[2023-06-30 13:01] LABS: Alanine Aminotransferase 22 U/L (6-35); Albumin Level 4.3 g/dL (3.5-5.1); Alkaline Phosphatase 74 U/L (38-126); Anion Gap 9 mmol/L (8-16); Aspartate Amino Transferase 42 U/L (14-36); Bilirubin,Total 0.7 mg/dL (0.2-1.3); Blood Urea Nitrogen 20 mg/dL (7-17); Calcium 9.2 mg/dL (8.4-10.2); Carbon Dioxide 26 mmol/L (22-30); Chloride 105 mmol/L (98-107); Estimated CRCL calculation 76 ml/min; Estimated Glomerular Filt Rate > 60; Glucose 91 mg/dL (65-110); Potassium 4.2 mmol/L (3.4-5.0); Sodium 140 mmol/L (137-145)
--- NOTE | 2023-06-30 15:11 | PC.NURSE ---
Dr. Garcia, Dr. Ku, and Parul at bedside to perform moderate sedation for R hip dislocation. Time out performed. 1453: 40mg propofol given by Dr. Garcia IVP. 1454: 10mg propofol given IVP. 1455: 30mg propofol given IVP. 1457: 30mg propofol given IVP. 1501: 70mg propofol given IVP.
--- NOTE | 2023-06-30 15:22 | PC.NURSE ---
Post sedation charting complete upon sending patient to OR
--- NOTE | 2023-06-30 15:22 | WPDANESEPPF ---
Anes - Initial Pre Proc Eval Procedure: Operation Date: 06/30/23 16:00 Proposed Procedures p Closed Reduction Right Hip - Yfn Blas MD Date/Time: 06/30/23 15:22 Surgeon: Yfn Blas MD Pre Op Diagnosis: R hip dislocated Patient Data Age: 58 Gender: F Height: 1.8 m Weight: 78.4 kg Last Vital Signs Temp 36.9 C 06/30/23 15:08 Pulse 61 06/30/23 15:08 Resp 19 06/30/23 15:08 BP 104/74 06/30/23 15:08 Pulse Ox 96 06/30/23 15:08 O2 Del Method Room Air 06/30/23 15:08 O2 Flow Rate 4 06/30/23 15:03 Allergies Allergy/AdvReac Type Severity Reaction Status Date / Time azithromycin Allergy Severe Hives / Verified 06/30/23 15:50 Red Face scopolamine Allergy Unknown Blurry Verified 06/30/23 15:50 Vision,Blurry Vision, EYE PAIN morphine AdvReac Severe Nausea and Verified 06/30/23 15:50 Vomiting Home Medications Medication Instructions Recorded Confirmed Type omeprazole 20 mg capsule,delayed 20 mg PO QAM 07/20/22 06/30/23 History release metformin 500 mg tablet 500 mg PO QAM #90 tabs 12/13/22 06/30/23 Rx bupropion HCl 300 mg 24 hr tablet, 300 mg PO QAM #90 tabs 02/14/23 06/30/23 Rx extended release (Wellbutrin XL) oxaprozin 600 mg tablet 600 mg PO DAILY #90 tabs 05/31/23 06/30/23 Rx solifenacin 10 mg tablet (Vesicare) 10 mg PO QAM #90 tabs 05/31/23 06/30/23 Rx fluoxetine 20 mg capsule 60 mg PO QAM #270 caps 06/01/23 06/30/23 Rx tirzepatide 10 mg/0.5 mL See Rx Instructions .Route 06/29/23 06/30/23 Rx subcutaneous pen injector .COMPLEX #6 mL (Mounjaro) hydrocodone 7.5 mg-acetaminophen 1 tablet PO Q4H PRN pain #40 tabs 06/30/23 Rx 325 mg tablet Laboratory Tests 06/30/23 06/30/23 06/30/23 12:43 12:43 12:43 WBC 4.9 K/mm3 (4.5-10.0) RBC 4.35 M/mm3 (4.2-5.4) Hgb 12.7 g/dL (12.0-15.0) Hct 38.8 % (37.0-47.0) MCV 89.2 fl (80-100) MCH 29.2 pg (26-34) MCHC 32.7 g/dl (32-36) RDW 13.4 % (11.5-14.5) Plt Count 220 k/mm3 (150-375) MPV 9.2 fl (7.4-10.4) Immature Gran % (Auto) 1.0 H % (0-0.5) Neut % (Auto) 62.6 % (45.5-73.1) Lymph % (Auto) 26.3 % (18.3-44.2) Crawford % (Auto) 6.8 % (2.6-8.5) Eos % (Auto) 2.7 % (0-4.4) Baso % (Auto) 0.6 % (0.2-1.2) Lymph # (Auto) 1.28 K/mm3 (0.9-3.2) Crawford # (Auto) 0.3 K/mm3 (0.1-0.6) Eos # (Auto) 0.1 K/mm3 (0-0.3) Baso # (Auto) 0.0 K/mm3 (0.0-0.1) Abs Immat Gran (auto) 0.05 H K/mm3 (0.00-0.031) Absolute Neuts (auto) 3.0 K/mm3 (1.3-6.7) Absolute Nucleated RBC 0.0 K/mm3 (0.0-0.012) Nucleated RBC % 0.0 % (0.0-0.2) PT 13.0 Seconds Cancelled (11.1-14.7) INR 0.9 Cancelled APTT 25.2 SECONDS (22.3-36.8) Sodium 140 mmol/L (137-145) Potassium 4.2 mmol/L (3.4-5.0) Chloride 105 mmol/L (98-107) Carbon Dioxide 26 mmol/L (22-30) Anion Gap 9 mmol/L (8-16) BUN 20 H mg/dL (7-17) Creatinine 0.80 mg/dL (0.7-1.0) Estim Creat Clear Calc 76 ml/min Estimated GFR > 60 (59 - ) Glucose 91 mg/dL (65-110) Calcium 9.2 mg/dL (8.4-10.2) Total Bilirubin 0.7 mg/dL (0.2-1.3) AST 42 H U/L (14-36) ALT 22 U/L (6-35) Alkaline Phosphatase 74 U/L (38-126) Total Protein 7.0 g/dL (6.3-8.2) Albumin 4.3 g/dL (3.5-5.1) Patient hx anesthesia problems: none Family hx anesthesia problems: none Results Review: All pre-operative results and documents have been reviewed as part of the pre-operative evaluation. [facility] Past Medical History Medical History Anxiety Arthritis [facility]
--- NOTE | 2023-06-30 15:25 | PC.NURSE ---
OR ready for patient at this time. Pt back to pre-sedation baseline. All belongings sent with patient.
[2023-06-30] MEDS: LACTATED RINGERS 1,000 ML 30 ML IV CONT (15:40)
[2023-06-30] MEDS: fentaNYL CITRATE INJ (*CRX) 100 MCG/2 ML VIAL 25 MCG IV PUSH ×2 (15:48→15:54)
[2023-06-30 16:04] LABS: Glucose Point of Care 84 mg/dl (65-105)
--- NOTE | 2023-06-30 16:08 | PM.IMHP ---
H&P: HPI History of Present Illness Date/Time: 06/30/23 16:08 Chief Complaint: Dislocated RIGHT Hip Narrative: Patient represents dislocation right hip prosthesis of the hip. She did 6 weeks ago was reduced it has been in a brace on for she popped out again today. Review of Systems Review of Systems: All systems reviewed & are unremarkable except as noted in HPI and below Musculoskeletal: Musculoskeletal: Reports arthralgias and Reports joint swelling PMFSH Past Medical History Medical History Anxiety Arthritis Charcot ankle Depression Diabetes Diet controlled Gastro-esophageal reflux disease without esophagitis Hypertension Metabolic syndrome Vitreous detachment Surgical History Surgical History History of arthrodesis Left ankle. History of laminectomy (1990) History of laminectomy (1996) History of right hip replacement (2006) Family History Family History Father Heart disease Hypertension Aneurysm Sibling Lung cancer Mother Arthritis Social History Social History Social History: Surrogate medical decision maker: Janine Saha, daughter. Code status: Full code. 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 Spiritual care concerns: No Meds Home Medications and Allergies Home Medications Medication Instructions Recorded Confirmed Type omeprazole 20 mg capsule,delayed 20 mg PO QAM 07/20/22 06/30/23 History release metformin 500 mg tablet 500 mg PO QAM #90 tabs 12/13/22 06/30/23 Rx bupropion HCl 300 mg 24 hr tablet, 300 mg PO QAM #90 tabs 02/14/23 06/30/23 Rx extended release (Wellbutrin XL) oxaprozin 600 mg tablet 600 mg PO DAILY #90 tabs 05/31/23 06/30/23 Rx solifenacin 10 mg tablet (Vesicare) 10 mg PO QAM #90 tabs 05/31/23 06/30/23 Rx fluoxetine 20 mg capsule 60 mg PO QAM #270 caps 06/01/23 06/30/23 Rx tirzepatide 10 mg/0.5 mL See Rx Instructions .Route 06/29/23 06/30/23 Rx subcutaneous pen injector .COMPLEX #6 mL (Eliu) Allergies Allergy/AdvReac Type Severity Reaction Status Date / Time azithromycin Allergy Severe Hives / Verified 06/30/23 15:50 Red Face scopolamine Allergy Unknown Blurry Verified 06/30/23 15:50 Vision,Blurry Vision, EYE PAIN morphine AdvReac Severe Nausea and Verified 06/30/23 15:50 Vomiting Vital Signs Vital Signs - 24 hr 06/30/23 12:26 06/30/23 12:32 06/30/23 12:33 Temperature 97.5 F L Pulse Rate 70 72 Pulse Rate [Monitor] Respiratory Rate 18 16 Blood Pressure 138/94 H Blood Pressure [Right Arm] Pulse Oximetry 100 100 100 Oxygen Delivery Room Air Oxygen Flow Rate 06/30/23 12:45 06/30/23 12:46 06/30/23 14:52 Temperature 98.2 F Pulse Rate 74 Pulse Rate [Monitor] 65 Respiratory Rate 18 15 Blood Pressure 150/85 H Blood Pressure [Right Arm] 130/85 Pulse Oximetry 100 91 98 Oxygen Delivery Room Air Oxygen Flow Rate 06/30/23 14:53 06/30/23 15:03 06/30/23 15:08 Temperature 98.5 F 98.4 F 98.5 F Pulse Rate Pulse Rate [Monitor] 73 71 58 L Respiratory Rate 18 19 19 Blood Pressure Blood Pressure [Right Arm] 141/79 H 135/80 123/76 Pulse Oximetry 99 92 99 Oxygen Delivery Room Air Nasal Cannula Room Air Oxyg
--- NOTE | 2023-06-30 16:15 | WPDHPUPDATE1 ---
History and Physical Update Update Date/Time: 06/30/23 16:15 History and Physical has been reviewed, including an updated exam of the patient. There are NO changes in the patient's condition. Risks, benefits, and alternatives have been discussed and questions answered. Patient agrees to proceed with procedure.
--- NOTE | 2023-06-30 16:32 | W.PM.PROC2 ---
Procedure Note - Detailed Date of Procedure 06/30/23 Pre-op Diagnosis RIGHT TOTAL HIP DISLOCATION Post-op Diagnosis Same Procedure Performed REDUCTION Surgeon Yfn Blas MD Anesthesia General Description of Procedure Patient brought to operating room 7. General anesthetic was administered. The hip was gently reduced with slight internal rotation. The hip easily reduced and into position. AP and lateral films taken demonstrating reduction of the prosthesis. Patient left the operating room satisfactory condition. Estimated Blood Loss 0 Pathology None sent Complications No immediate complications [facility] Billing Surgery - Charge Forward: Surgery Billing (REDUCTION RIGHT HIP DISLOCATION [id number])
[2023-06-30] MEDS: oxyCODONE HCL (*CRX) 5 MG TAB IR PO (17:51)
== END 2023-06-30 18:13 | disposition home or self-care (01) ==
LOC: ANHED 15:13 → ANHSURGERY 15:17
PROVIDERS: Emergency Provider Student in an Organized Health Care Education/Training Program; PCP Family Medicine; Visit Provider Orthopaedic Surgery
PROC: (CPT 27266; principal; 2023-06-30 16:00)
DX: T84.020A Dislocation of internal right hip prosthesis, initial encounter (principal); E11.9 Type 2 diabetes mellitus without complications; K21.9 Gastro-esophageal reflux disease without esophagitis; I10 Essential (primary) hypertension
CPT/HCPCS: 27266; 36415; 73502; 80053; 82948; 85025; 85610; 85730; 99199; A9270; J0330; J1170; J2405; J2704; J3010; J7120

== ENCOUNTER 2023-07-12 09:58 | Outpatient (CLI) | payer OTHER, SELFPAY ==
[2023-07-12 12:41] LABS: Basophils Absolute Auto 0.1 K/mm3 (0.0-0.1); Eosinophils Absolute Auto 0.1 K/mm3 (0-0.3); Eosinophils Percent Auto 1.8 % (0-4.4); Hematocrit 37.6 % (37.0-47.0); Hemoglobin 11.9 g/dL (12.0-15.0); Immature Granulocyte Absolute 0.01 K/mm3 (0.00-0.031); Immature Granulocyte Percent A 0.2 % (0-0.5); Lymphocytes Absolute Auto 1.11 K/mm3 (0.9-3.2); Lymphocytes Percent Auto 22.7 % (18.3-44.2); Mean Corpuscular HGB Conc 31.6 g/dl (32-36); Mean Corpuscular Hemoglobin 28.9 pg (26-34); Mean Corpuscular Volume 91.3 fl (80-100); Mean Platelet Volume 9.3 fl (7.4-10.4); Monocytes Absolute Auto 0.3 K/mm3 (0.1-0.6); Monocytes Percent Auto 6.8 % (2.6-8.5); Neutrophils Absolute Auto 3.3 K/mm3 (1.3-6.7); Neutrophils Percent Auto 67.5 % (45.5-73.1); Platelet Count Result 257 k/mm3 (150-375); Red Blood Count 4.12 M/mm3 (4.2-5.4); Red Cell Distribution Width 13.9 % (11.5-14.5); White Blood Count 4.9 K/mm3 (4.5-10.0)
[2023-07-12 12:52] LABS: Alanine Aminotransferase 18 U/L (6-35); Albumin Level 4.1 g/dL (3.5-5.1); Alkaline Phosphatase 107 U/L (38-126); Anion Gap 5 mmol/L (8-16); Aspartate Amino Transferase 53 U/L (14-36); Bilirubin,Total 0.7 mg/dL (0.2-1.3); Blood Urea Nitrogen 22 mg/dL (7-17); Calcium 9.5 mg/dL (8.4-10.2); Carbon Dioxide 30 mmol/L (22-30); Chloride 105 mmol/L (98-107); Estimated Glomerular Filt Rate > 60; Glucose 68 mg/dL (65-110); Potassium 4.3 mmol/L (3.4-5.0); Sodium 140 mmol/L (137-145)
[2023-07-12 13:05] LABS: CRP < 0.5 mg/dL (<1.0)
[2023-07-12 13:07] LABS: Erythrocyte Sedimentation Rate 16 mm/hr (0-20)
== END 2023-07-12 09:59 | disposition home or self-care (01) ==
LOC: ANHGOSHLAB 10:01
PROVIDERS: PCP Family Medicine
DX: E11.9 Type 2 diabetes mellitus without complications (principal); R74.8 Abnormal levels of other serum enzymes; D64.9 Anemia, unspecified; M25.551 Pain in right hip
CPT/HCPCS: 36415; 80053; 85025; 85652; 86140

== ENCOUNTER 2023-07-26 14:11 | Outpatient (CLI) | payer OTHER, SELFPAY ==
[2023-07-26 19:07] LABS: Basophils Percent Auto 0.5 % (0.2-1.2); Eosinophils Absolute Auto 0.1 K/mm3 (0-0.3); Eosinophils Percent Auto 3.2 % (0-4.4); Hematocrit 31.5 % (37.0-47.0); Hemoglobin 9.8 g/dL (12.0-15.0); Mean Corpuscular HGB Conc 31.1 g/dl (32-36); Mean Corpuscular Hemoglobin 28.7 pg (26-34); Mean Corpuscular Volume 92.1 fl (80-100); Mean Platelet Volume 9.3 fl (7.4-10.4); Monocytes Absolute Auto 0.4 K/mm3 (0.1-0.6); Monocytes Percent Auto 8.5 % (2.6-8.5); Neutrophils Absolute Auto 2.9 K/mm3 (1.3-6.7); Neutrophils Percent Auto 70.8 % (45.5-73.1); Platelet Count Result 207 k/mm3 (150-375); Red Blood Count 3.42 M/mm3 (4.2-5.4); Red Cell Distribution Width 14.2 % (11.5-14.5); White Blood Count 4.1 K/mm3 (4.5-10.0)
[2023-07-26 20:09] LABS: MRSA (PCR) NOT DETECTED (NOT DETECTE)
== END 2023-07-26 14:12 | disposition home or self-care (01) ==
LOC: ANHGOSHLAB 14:14
PROVIDERS: PCP Family Medicine
DX: Z22.321 Carrier or suspected carrier of Methicillin susceptible Staphylococcus aureus (principal); D64.9 Anemia, unspecified
CPT/HCPCS: 36415; 85025; 87641

== ENCOUNTER 2023-09-14 13:00 | Outpatient (RCR) | payer OTHER, SELFPAY ==
--- NOTE | 2023-08-31 09:01 | PTOPEVAL1 ---
Assessment and note entered by Eugene Funes, PT Evaluation Information Assessment Status Evaluation Diagnosis Right hip arthroplasty, Back pain Onset August 03, 2023 Subjective Information Had hip revised on 08/03/23. History of 2 lumbar laminectomy. Has both back and hip pain. 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 Feels very weak in her glutes. Reports that she is still having trouble with her left wrist. Reported Pain Level Pain Score 3: Self Report Assessment PT Clinical Summary Patient demonstrates significant hip weakness including lateral and posterior chain. Difficulty with transfers and squats evident. Needs emphasis on functional motion and strengthening to improve gait and gross functional mobility following hip replacement. Plan of Care Interventions Gait Training,Manual Therapy,Neuro Re-education, Therapeutic Activities,Therapeutic Exercise PT Services Indicated Yes Treatment Frequency and 2x/week for 8 visits Duration These treatments will address the objective and functional deficits as defined above. The patient will be advanced safely and appropriately in order for the patient to progress towards his/her prior level of function. Additional exercises will be introduced and as well as a comprehensive home exercise program upon discharge, if needed, ?to ensure carryover of functional gains achieved in the clinic. This treatment plan has been reviewed and agreement upon by the patient.
--- NOTE | 2023-08-31 09:01 | OPREHPOC ---
Outpatient Therapy Plan of Care This is a Multidisciplinary Plan of Care that may contain components documented by all disciplines (PT, OT, and ST.) PT Problem 1 PT Problem #1 Knowledge Deficit PT Goal 1 Goal Independent with HEP Target Visit 4 PT Problem 2 PT Problem #2 Pain PT Goal 1 Goal Report no pain greater than 1/10 with ambulation of 100 ft + Target Visit 8 PT Problem 3 PT Problem #3 Impaired Strength PT Goal 1 Goal Improve jeevan hip abduction strength to 4/5 to improve lateral stability with functional activity and walking Target Visit 8 PT Goal 2 Goal Improve jeevan hip flexion strength to 4/5 to improve jeevan foot clearance with ambulation and stairs Target Visit 8 PT Problem 4 PT Problem #4 Impaired Coordination PT Goal 1 Goal Demonstrate ability to maintain balance on uneven surface with narrow base of support with no lateral loss of balance for stability with gait integration Target Visit 8 PT Goal 2 Goal Ambulate with absence of compensated Trendelenburg Target Visit 8
--- NOTE | 2023-09-22 11:29 | PCPTNOTE ---
Pt cancelled her appt today and all remaining appts stating her doctor told her to stop therapy.
--- NOTE | 2023-09-25 14:19 | PTOPDC ---
Assessment and note entered by Eugene Funes, PT Evaluation Information Assessment Status Discharge - Pt Not Present Diagnosis Right hip arthroplasty, Back pain Onset August 03, 2023 Subjective Information Patient called to cancel remaining PT at this time . She is undergoing outpatient procedure and MD wanted her to hold off on therapy. Will return when released by Physician. Assessment PT Clinical Summary Patient to be discharged at this time from skilled therapy. Will resume when released by MD. Plan of Care PT Services Indicated Yes
== END 2023-09-25 16:00 | disposition home or self-care (01) ==
LOC: ANHPT 13:00
PROVIDERS: PCP Family Medicine
DX: Z47.1 Aftercare following joint replacement surgery (principal); Z96.641 Presence of right artificial hip joint
CPT/HCPCS: 97016; 97110; 97112; 97140; 97161; 97530

== ENCOUNTER 2024-01-01 15:28 | Outpatient (CLI) | payer OTHER, SELFPAY ==
[2024-01-01 18:42] LABS: Basophils Absolute Auto 0.1 K/mm3 (0.0-0.1); Basophils Percent Auto 1.2 % (0.2-1.2); Eosinophils Absolute Auto 0.2 K/mm3 (0-0.3); Eosinophils Percent Auto 3.9 % (0-4.4); Hematocrit 38.5 % (37.0-47.0); Hemoglobin 12.7 g/dL (12.0-15.0); Immature Granulocyte Absolute 0.02 K/mm3 (0.00-0.031); Immature Granulocyte Percent A 0.3 % (0-0.5); Lymphocytes Absolute Auto 1.77 K/mm3 (0.9-3.2); Lymphocytes Percent Auto 30.1 % (18.3-44.2); Mean Corpuscular Hemoglobin 29.4 pg (26-34); Mean Corpuscular Volume 89.1 fl (80-100); Mean Platelet Volume 9.1 fl (7.4-10.4); Monocytes Absolute Auto 0.4 K/mm3 (0.1-0.6); Monocytes Percent Auto 6.8 % (2.6-8.5); Neutrophils Absolute Auto 3.4 K/mm3 (1.3-6.7); Neutrophils Percent Auto 57.7 % (45.5-73.1); Platelet Count Result 225 k/mm3 (150-375); Red Blood Count 4.32 M/mm3 (4.2-5.4); Red Cell Distribution Width 14.6 % (11.5-14.5); White Blood Count 5.9 K/mm3 (4.5-10.0)
== END 2024-01-01 15:29 | disposition home or self-care (01) ==
LOC: ANHGOSHLAB 15:29
PROVIDERS: PCP Family Medicine; Visit Provider Family Medicine
DX: D64.9 Anemia, unspecified (principal)
CPT/HCPCS: 36415; 85025

== ENCOUNTER 2024-07-08 16:09 | Outpatient (CLI) | payer OTHER, SELFPAY ==
[2024-07-08 19:43] LABS: Basophils Absolute Auto 0.1 K/mm3 (0.0-0.1); Basophils Percent Auto 1.5 % (0.2-1.2); Eosinophils Absolute Auto 0.2 K/mm3 (0-0.3); Eosinophils Percent Auto 3.7 % (0-4.4); Hematocrit 39.5 % (37.0-47.0); Hemoglobin 13.3 g/dL (12.0-15.0); Immature Granulocyte Absolute 0.01 K/mm3 (0.00-0.031); Immature Granulocyte Percent A 0.2 % (0-0.5); Lymphocytes Absolute Auto 1.19 K/mm3 (0.9-3.2); Lymphocytes Percent Auto 25.6 % (18.3-44.2); Mean Corpuscular HGB Conc 33.7 g/dl (32-36); Mean Corpuscular Hemoglobin 30.2 pg (26-34); Mean Corpuscular Volume 89.8 fl (80-100); Mean Platelet Volume 9.1 fl (7.4-10.4); Monocytes Absolute Auto 0.4 K/mm3 (0.1-0.6); Monocytes Percent Auto 8.4 % (2.6-8.5); Neutrophils Absolute Auto 2.8 K/mm3 (1.3-6.7); Neutrophils Percent Auto 60.6 % (45.5-73.1); Platelet Count Result 224 k/mm3 (150-375); Red Cell Distribution Width 13.1 % (11.5-14.5); White Blood Count 4.6 K/mm3 (4.5-10.0)
[2024-07-08 20:32] LABS: Alanine Aminotransferase 18 U/L (6-35); Albumin Level 4.3 g/dL (3.5-5.1); Alkaline Phosphatase 90 U/L (38-126); Anion Gap 4 mmol/L (4-12); Aspartate Amino Transferase 39 U/L (14-36); Bilirubin,Total 0.5 mg/dL (0.2-1.3); Blood Urea Nitrogen 23 mg/dL (7-17); Calcium 9.3 mg/dL (8.4-10.2); Carbon Dioxide 28 mmol/L (22-30); Chloride 107 mmol/L (98-107); Creatine Kinase 400 U/L (30-135); Estimated Glomerular Filt Rate > 60; Glucose 79 mg/dL (65-110); Potassium 4.2 mmol/L (3.4-5.0); Sodium 139 mmol/L (137-145)
== END 2024-07-08 16:10 | disposition home or self-care (01) ==
LOC: ANHGOSHLAB 16:10
PROVIDERS: PCP Family Medicine; Visit Provider Family Medicine
DX: M62.50 Muscle wasting and atrophy, not elsewhere classified, unspecified site (principal)
CPT/HCPCS: 36415; 80053; 82085; 82550; 84443; 85025